=== PATIENT | male | born 1945 | race Caucasian/White ===

== ENCOUNTER 2021-09-30 10:15 | Outpatient (RCR) | payer MEDICARE, OTHER, SELFPAY ==
[2021-09-02 09:10] VITALS: BP 166/72; PULSE 59; RESP 16; TEMP 36.3; BMI 35.6
--- NOTE | 2021-09-02 12:07 | HP.PCM_ITS ---
History of Present Illness Date of Service: 09/02/21 Chief Complaint: Left lower extremity wound History of Wound: This is a 76-year-old male who presents to the wound care center for a left lower extremity wound that has not healed complicated by chronic venous insufficiency. Patient is accompanied by his and states that he wears compression stockings every other day and not daily. He denies being a diabetic and states that his recent hemoglobin A1c was 5.8%. He states that he bumped his left lower leg and noticed a small raised area that was open and weeping. He states that this scabbed over which is easily removed during washing but rescabs over. He denies any nausea, vomiting, fever, chills, shortness of breath, or other constitutional symptoms. [facility] Home Medications calcium carbonate 3 PO DAILY 09/02/21 [History Last Taken Unknown] fluticasone propionate 1 spray INTRANASAL DAILY 09/02/21 [History Last Taken Unknown] hydrochlorothiazide 12.5 mg PO DAILY PRN PRN 09/02/21 [History Last Taken Unknown] ibuprofen 300 mg PO PRN PRN 09/02/21 [History Last Taken Unknown] levothyroxine 75 mcg PO DAILY 09/02/21 [History Last Taken Unknown] losartan 100 mg PO DAILY 09/02/21 [History Last Taken Unknown] metoprolol succinate 100 mg PO DAILY 09/02/21 [History Last Taken Unknown] multivitamin 1 tab PO DAILY 09/02/21 [History Last Taken Unknown] tamsulosin 0.4 mg PO QHS 09/02/21 [History Last Taken Unknown] Allergy/AdvReac Type Severity Reaction Status Date / Time latex Allergy Rash Verified 04/18/14 12:54 Penicillins Allergy Hives Verified 04/18/14 12:54 Social History Smoking Status: Unknown if ever smoked ROS Constitutional Constitutional: Denies chills, fatigue, fever(s) or weakness Eyes Eyes: Denies blurry vision, change in vision or double vision ENT HEENT: Denies dysphagia, nasal congestion, nasal discharge or sore throat Cardiovascular Cardiovascular: Denies chest pain, dyspnea, fatigue or palpitations Respiratory/Chest Respiratory/Chest: Denies cough, shortness of breath at rest or wheezing Gastrointestinal Gastrointestinal: Denies abdominal pain, constipation, diarrhea, nausea or vomiting Genitourinary Genitourinary: Denies dysuria, urinary frequency, urinary hesitancy or urinary incontinence Musculoskeletal Musculoskeletal: Denies joint pain, joint stiffness, numbness or tingling Integumentary Integumentary: Denies change in hair, jaundice or rash Neurologic Neurologic: Denies dizziness, numbness, seizures or tingling Psychiatric Psychiatric: Denies anxiety or depression Endocrine Endocrinology: Denies cold intolerance, heat intolerance, polydipsia or polyuria Hematologic/Lymphatic Hematologic/Lymphatic: Denies easy bleeding or easy bruising Vital Signs Vital Signs Vital Signs: 09/02/21 09:10 Temperature 97.4 F L Temperature Source Temporal Pulse Rate 59 L Respiratory Rate 16 Blood Pressure 166/72 H Blood Pressure Mean 103 Blood Pressure Source Monitor Blood Pressure Position Semi-Fowlers Blood Pressure Location Right Arm Weight Weight: 112.491 kg Body Mass Index (BMI) 35.6 Physical Exam Const alert, oriented x3 and no apparent distress General Appearance: cooperative and comfortable HEENT normocephalic Eyes General Eye: normal appearance of both eyes Neck General: normal visual inspection Chest inspection of chest normal Resp normal respiratory effort Cardio regular rate and regular rhythm Extremity Peripheral Pulses: Yes posterior tibial pulses present bilateral and dorsalis pedis pulses present bilateral Skin Skin Narrative: Left leg medial lower extremity wound with dried yellow crusted covering secondary to chronic venous insufficiency. Surrounding skin is reddish-purple with hemosiderin stained deposition about the left lower extremity extending distally to the ankle. Right lower extremity demonstrates localized area of rubor without breakdown of skin or margins consistent with chronic venous insufficiency. No localized signs of infection to the left wound site. General Skin Exam: venous stasis and dermatitis Wound Narrative: Left lower extremity ulceration with dried yellow crusted covering secondary to chronic venous insufficiency with no localized signs of infection. Surrounding skin is reddish-purple with hemosiderin stained deposition about the left lower extremity extending distally to the ankle. Neuro oriented x3 and moves all extremities Motor Exam: strength 5/5 throughout Debridement Note Debridement Note Wound debrided: Left lower extremity medial wound Laterality: Left Wound Grade/Stage: Flores stage I Type of Debridement: Excisional debridement Anesthesia Used: 5% Lidocaine Gel Depth: in the subcutaneous layer Percentage of wound debrided: 100 Instrument Used: #15 blade Tissue Removed: Fibrous, devitalized subcutaneous, biofilm, slough Severity: Fat Layer Exposed Amount of bleeding with debridement: Mild Bleeding Controlled with: Pressure Patient tolerated procedure: Patient tolerated procedure well Post-Debridement Measurements and Additional Note: Post-Debridement Measurements /Treatment WC - Nurse 1 - General Ulcer Assessment Start: 09/02/21 09:03 Freq: Status: Active Protocol: ANTHONY Activity Type Activity Date Activity User E-Sign Co-Sign Detail Recorded Client Recorded Date Recorded By Document 09/02/21 09:10 CHER [id number] 09/02/21 09:54 CHER 09/02/21 09:10 WC - Today's Visit Information Type of service Initial Visit Arrival Mode Ambulatory Accompanied by Patient Identification Verified (Name & Yes ) Patient Requires Transmission-Based No Precautions Height and Weight Height 5 ft 10 in Weight 112.491 kg Weight in Pounds 248.0 lbs Weight Measurement Method Standing Scale Body Mass Index (BMI) 35.6 BMI Classification Obese BSA - Isael 2.29 Vital Signs Temperature (97.8 F-99.1 F) 97.4 F L Temperature Source Temporal Pulse Rate (60-100) 59 L Pulse Location Monitor Respiratory Rate (12-18) 16 Respiratory rate source Observation Blood Pressure (90/60-120/80) 166/72 H Blood Pressure Mean 103 Source Monitor Position Semi-Fowlers Blood Pressure Location Right Arm History Since Last Visit- (Skip if this is Patient's initial visit) Have you changed medications since your No last visit? Left Footwear Regular Shoe Right Footwear Regular Shoe Pain Scale: 0-10 Numeric Is Patient Pain Free? Yes Communication Assessment Preferred language Wolof Patient Coordinator Front Desk Required No Able to Read Yes: Partial vision impairment from Macular degeneration with surgery. Able to Write Yes Caregiver Communication Skills No Impairment Impairment Right Hearing Abillity Normal Left Hearing Abillity Normal Teaching Assessment Preferences Verbal,Written, Audio/Visual, Demonstration Barriers to Learning Vision Impairment Readiness To Learn Excellent Willingness to Engage in Self Management High Activies Readiness to Engage in Self Management High Activities Anxiety Level Calm Cooperation Cooperative Perception Coherent Interest in Health Problem Asks Questions Education Importance Acknowledges Need Does Patient Smoke tobacco or other No substances Is Patient Diabetic Yes Functional Assessment Recent Decline in Ability to Perform Denies Any Declines Culture/Uatsdin/[employer] Cultural/Uatsdin Needs that may affect No Treatment Plan Would you allow our hospital informatica mdm developer to No meet you for the purpose of spiritual/ emotional support? [employer] to contact place of sikh No HOMERO - Nurse 1 - General Ulcer Measurement Start: 09/02/21 09:03 Freq: Status: Active Protocol: Activity Type Activity Date Activity User E-Sign Co-Sign Detail Recorded Client Recorded Date Recorded By Document 09/02/21 09:10 CHER [id number] 09/02/21 09:54 CHER 09/02/21 09:10 Wound Center Nurse 1 Lower Limb Edema Present Yes Right Calf (cm) 40.5 Right Ankle (cm) 24.6 Left Calf (cm) 39.8 Left Ankle (cm) 27.6 Assessment/Plan Assessment/Plan (1) Non-pressure chronic ulcer of left calf with fat layer exposed: CODE(S): L97.222 - Non-pressure chronic ulcer of left calf with fat layer exposed (2) Venous insufficiency (chronic) (peripheral): CODE(S): I87.2 - Venous insufficiency (chronic) (peripheral) (3) Bilateral edema of lower extremity: CODE(S): R60.0 - Localized edema PLAN: Is a 76-year-old male who presents to the wound care center for a medial left lower extremity wound secondary to chronic venous insufficiency. He states that he bumped his left leg and had developed a small raised area that weeps some fluid and crusted over with a yellow scab. He states the scab comes off when washing but returns again. He states that he only wears compression stockings every other day and cites difficulty getting them on. He has previously tried zipper stockings and also cites difficulty with these. He is accompanied by his who also states she has arthritis in her hands and cannot help her get the stockings on. I reviewed his recent labs from 08/18/2021 in which he had a hemoglobin A1c of 5.8%. He denies being diabetic. He has palpable pedal pulses DP and PT bilaterally. Left lower extremity medial ulceration site was sharply debrided with a #15 blade removing yellow hyperkeratotic crusting, fibrous, devitalized subcutaneous, biofilm, slough. Hydrogel and a dry sterile dressing applied to the site to be changed daily. I discussed with the patient and his that he needs to be compliant and continued use of compression stockings daily as this is essential for healing. Given his difficulty in being able to get the compression stockings on I am prescribing CircAid compression wraps with Velcro tabs to be worn daily to both lower extremities. Right lower extremity site of rubisma demonstrates no open wounds and will be monitored for any changes. I disc ussed with his chronic venous insufficiency this will be duron to reducing edema and allowing the wound sites to heal. Patient and voiced understanding of this. I discussed proper diet control and exercise to prevent onset of diabetes mellitus type 2, patient states that he will try his best. I reviewed and discussed his case today. Debridement was performed today as noted in the clinical panel to all of the ulcer sites. The following work up and care recommendations were made: Dressing: Hydrogel dry sterile dressing Wash: Soap and water Tissue growth optimization: Hydrogel Offload: CircAid compression dressing Vascular: Palpable pedal pulses DP and PT Edema: Patient to wear CircAid compression, elevate lower extremities at times of rest, dorsiflex and plantarflex the foot to aid in venous return by the calf muscle Infection: No localized signs of infection Pain: Patient may take [id number] Tylenol for discomfort Host factors: Chronic venous insufficiency and edema I answered all the patient's questions. To return to the wound healing center in 1 week or call sooner if the patient has any questions or concerns. The problems addressed require a low medical decision making level which includes two or more minor problems, a stable chronic illness, or an acute uncomplicated illness or injury. The medical decision making level is low. There is noted low risk of morbidity after considering this treatment plan and diagnostic data. Note: [employer] speech recognition application assistant software was used to create portions of this document. Sound-alike and misspelled words, as well as other application assistant errors may be contained in the documentation.
[2021-09-09 09:19] VITALS: BP 179/60; PULSE 60; RESP 18; TEMP 36.2; BMI 35.6
--- NOTE | 2021-09-09 13:08 | PN.PCM_ITS ---
History of Present Illness Date of Service: 09/09/21 Chief Complaint: Left lower extremity wound History of Wound: This is a 76-year-old male who presents to the wound care center for a left lower extremity wound that has not healed complicated by chronic venous insufficiency. Patient is accompanied by his and states that he wears compression stockings every other day and not daily. He denies being a diabetic and states that his recent hemoglobin A1c was 5.8%. He states that he bumped his left lower leg and noticed a small raised area that was open and weeping. He states that this scabbed over which is easily removed during washing but rescabs over. He denies any nausea, vomiting, fever, chills, shortness of breath, or other constitutional symptoms. Subjective Subjective This is a 76-year-old male who presents to the wound care center for a left lower extremity wound that is not healed complicated by chronic venous insufficiency. He denies any nausea, vomiting, fever, chills, shortness of breath, or other constitutional symptoms. He states they have been continuing to change the dressings daily to his wound site. He is accompanied by his today and has no other complaints. Objective Data Objective Data Vital Signs: Vital Signs Temp Pulse Resp BP 97.1 F L 60 18 179/60 H 09/09/21 09:19 09/09/21 09:19 09/09/21 09:19 09/09/21 09:19 Weight: 112.491 kg Body Mass Index (BMI) 35.6 Physical Exam Const alert, oriented x3 and no apparent distress General Appearance: cooperative and comfortable HEENT normocephalic Eyes General Eye: normal appearance of both eyes Neck General: normal visual inspection Chest inspection of chest normal Resp normal respiratory effort Cardio regular rate and regular rhythm Skin Skin Narrative: Left leg medial lower extremity wound with dried yellow crusted covering secondary to chronic venous insufficiency. Surrounding skin is reddish-purple with hemosiderin stained deposition about the left lower extremity extending distally to the ankle. Right lower extremity demonstrates localized area of rubor without breakdown of skin or margins consistent with chronic venous insufficiency. No localized signs of infection to the left wound site. General Skin Exam: venous stasis and dermatitis Wound Narrative: Left lower extremity ulceration with dried yellow crusted covering secondary to chronic venous insufficiency with no localized signs of infection. Surrounding skin is reddish-purple with hemosiderin stained deposition about the left lower extremity extending distally to the ankle. Neuro oriented x3 and moves all extremities Motor Exam: strength 5/5 throughout Debridement Note Debridement Note Wound debrided: Left lower extremity wound Laterality: Left Type of Debridement: Excisional debridement Anesthesia Used: 5% Lidocaine Gel and Cetacaine Depth: in the subcutaneous layer Percentage of wound debrided: 100 Instrument Used: 3mm curette Tissue Removed: Fibrous, devitalized subcutaneous, biofilm, slough Severity: Fat Layer Exposed Amount of bleeding with debridement: Mild Bleeding Controlled with: Pressure Patient tolerated procedure: Patient tolerated procedure well Post-Debridement Measurements and Additional Note: Post-Debridement Measurements/Treatment - Nurse 1 - General Ulcer Assessment Start: 09/02/21 09:03 Freq: Status: Active Protocol: ANTHONY Activity Type Activity Date Activity User E-Sign Co-Sign Detail Recorded Client Recorded Date Recorded By Document 09/02/21 09:10 CHER [id number] 09/02/21 09:54 Document 09/09/21 09:19 [id number] 09/09/21 09:29 09/02/21 09/09/21 09:10 09:19 - Today's Visit Information Type of service Initial Visit Follow-up Visit (Physician/VITAMIN MANAGER ) Arrival Mode Ambulatory Ambulatory Accompanied by Patient Identification Verified (Name & Yes Yes ) Patient Requires Transmission-Based No No Precautions Height and Weight Height 5 ft 10 in Weight 112.491 kg Weight in Pounds 248.0 lbs Weight Measurement Method Standing Scale Body Mass Index (BMI) 35.6 35.6 BMI Classification Obese Obese BSA - Isael 2.29 Vital Signs Temperature (97.8 F-99.1 F) 97.4 F L 97.1 F L Temperature Source Temporal Temporal Pulse Rate (60-100) 59 L 60 Pulse Location Monitor Monitor Respiratory Rate (12-18) 16 18 Respiratory rate source Observation Observation Blood Pressure (90/60-120/80) 166/72 H 179/60 H Blood Pressure Mean (mm Hg) 103 99 Source Monitor Monitor Position Semi-Fowlers Semi-Fowlers Blood Pressure Location Right Arm Right Arm History Since Last Visit- (Skip if this is Patient's initial visit) Have you changed medications since your No No last visit? Any new allergies or adverse reactions No Had a fall/change in ADL's that may No increase risk of falls Signs or symptoms of abuse and/or No neglect since last visit Have you been in the hospital since your No last visit? Has dressing in place as prescribed Yes Has compression in place as prescribed Yes Has offloadiing in place as prescribed N/A Experienced any changes in pain level or No management Left Footwear Regular Shoe Regular Shoe Right Footwear Regular Shoe Regular Shoe Pain Scale: 0-10 Numeric Is Patient Pain Free? Yes Yes Communication Assessment Preferred language [place] Retirement Assistant Required No Able to Read Yes: Partial vision impairment from Macular degeneration with surgery. Able to Write Yes Caregiver Communication Skills No Impairment Impairment Right Hearing Abillity Normal Left Hearing Abillity Normal Teaching Assessment Preferences Verbal,Written, Audio/Visual, Demonstration Barriers to Learning Vision Impairment Readiness To Learn Excellent Willingness to Engage in Self Management High Activies Readiness to Engage in Self Management High Activities Anxiety Level Calm Cooperation Cooperative Perception Coherent Interest in Health Problem Asks Questions Education Importance Acknowledges Need Does Patient Smoke tobacco or other No substances Is Patient Diabetic Yes Functional Assessment Recent Decline in Ability to Perform Denies Any Declines Culture/Congregational/Career And Guidance Counselor Cultural/Congregational Needs that may affect No Treatment Plan Would you allow our hospital fuel cell technician to No meet you for the purpose of spiritual/ emotional support? Career And Guidance Counselor to contact place of pentecostal No WC - Nurse 1 - General Ulcer Measurement Start: 09/02/21 09:03 Freq: Status: Active Protocol: Activity Type Activity Date Activity User E-Sign Co-Sign Detail Recorded Client Recorded Date Recorded By Document 09/02/21 09:10 CHER [id number] 09/02/21 09:54 Document 09/09/21 09:19 [id number] 09/09/21 09:29 09/02/21 09/09/21 09:10 09:19 #1 Left Medial LE -Combined with other wound No -Current Size (cm) - Length 1.3 -Current Size (cm) - Width 0.6 -Current Size (cm) - Depth 0.2 -Total Square Cm 0.78 -Photo Taken No -Epithelialization Small 1-33% -Tunneling No -Undermining/Tunneling No -Circular Undermining No -Exudate Amt Small -Wound Margin Flat & Intact -Granulation Amt None Present (0 %) -Slough/Fibrin Yes -Necrosis Amt Large (67-100%) -Necrotic Tissue Type Adherent Slough -Structure Exposed N/A -Texture (Loretta-wound Skin Appearance) Assessed, Localized Edema -Moisture (Loretta-wound Skin Appearance) Assessed,Dry/ Scaly -Color (Loretta-wound Skin Appearance) Assessed, Hemosiderin Staining -Temperature (Loretta-wound Skin No Abnormality Appearance) (Pt Warm) -Tenderness on Palpation (Loretta-wound No Skin Appearance) -Ulcer Cleansing Rinsed/ Irrigated with Saline -Foul Odor after Cleansing No -Anesthetic Used 5% Lidocaine Gel Wound Center Nurse 1 Lower Limb Edema Present Yes Yes Right Calf (cm) 40.5 39.0 Right Ankle (cm) 24.6 23.5 Left Calf (cm) 39.8 39.4 Left Ankle (cm) 27.6 23.7 WC - Nurse 2 - General Ulcer CM Notes Start: 09/02/21 09:03 Freq: Status: Active Protocol: Activity Type Activity Date Activity User E-Sign Co-Sign Detail Recorded Client Recorded Date Recorded By Document 09/02/21 12:40 PL [id number] 09/02/21 12:45 PL Document 09/09/21 12:58 PL [id number] 09/09/21 12:59 PL 09/02/21 09/09/21 12:40 12:58 Wound Center Nurse 2 #1 Left Medial LE -Time 09:49 -Correct Patient Yes -Correct Side, Site, Position Yes -Correct Procedure Yes -Procedure Performed Yes -Type of Procedure Debridement -Clinical Debridement Subcutaneous -Tissue Removed Subcutaneous -Post Debridement (cm) - Length 1.3 -Post Debridement (cm) - Width 0.6 -Post Debridement (cm) - Depth 0.2 -Total Square (Post) (cm) 0.78 -Area of Debridement (cm) - Length 1.3 -Area of Debridement (cm) - Width 0.6 -Total Square (Area) (cm) 0.78 -Tunneling No -Undermining/Tunneling No -Circular Undermining No -Wound/Ulcer Outcome Not Healed -Ulcer Cleansing Rinsed/ Irrigated with Saline -Foul Odor after Cleansing No -Bioengineered Tissue No -Bleeding Controlled with Pressure -Treatment Response Procedure Tolerated Well -Debridement - Subq, 1st 20sq cm Yes #1 Left Medial LE -Time 09:30 -Correct Patient Yes -Correct Side, Site, Position Yes -Correct Procedure Yes -Procedure Performed Yes -Type of Procedure Debridement -Clinical Debridement Subcutaneous -Tissue Removed Subcutaneous -Post Debridement (cm) - Length 1.0 -Post Debridement (cm) - Width 1.0 -Post Debridement (cm) - Depth 0.1 -Total Square (Post) (cm) 1.00 -Area of Debridement (cm) - Length 1.0 -Area of Debridement (cm) - Width 1.0 -Total Square (Area) (cm) 1.00 -Tunneling No -Undermining/Tunneling No -Circular Undermining No -Wound/Ulcer Outcome Not Healed -Ulcer Cleansing Rinsed/ Irrigated with Saline -Foul Odor after Cleansing No -Bioengineered Tissue No -Bleeding Controlled with Pressure -Treatment Response Procedure Tolerated Well -Debridement - Subq, 1st 20sq cm Yes Pain Scale: 0-10 Numeric Is Patient Pain Free? Yes Yes - Nurse 3 - General Ulcer D/C NN Start: 09/02/21 09:03 Freq: Status: Active Protocol: Activity Type Activity Date Activity User E-Sign Co-Sign Detail Recorded Client Recorded Date Recorded By Document 09/02/21 12:40 PL [id number] 09/02/21 12:45 PL 09/02/21 12:40 Is Patient Pain Free? Yes Wound Care Nurse 3 #1 Left Medial LE -Foul Odor after Cleansing No -Primary Dressing Applied C Hydrogel ($) -Primary Dressing Covered/Secured with Dry Gauze & Roll Gauze, Secured with Tape Left -Tubular Bandage Double Layer -Size of Tubigrip Used Size E -Size E ($) 4 Right -Tubular Bandage Double Layer -Size of Tubigrip Used Size E -Size E ($) 4 WC - Visit Discharge Discharge Condition Stable Transportation Private Auto Assessment/Plan Assessment/Plan (1) Non-pressure chronic ulcer of left calf with fat layer exposed: CODE(S): L97.222 - Non-pressure chronic ulcer of left calf with fat layer exposed (2) Venous insufficiency (chronic) (peripheral): CODE(S): I87.2 - Venous insufficiency (chronic) (peripheral) (3) Bilateral edema of lower extremity: CODE(S): R60.0 - Localized edema PLAN: Is a 76-year-old male who presents to the wound care center for a medial left lower extremity wound secondary to chronic venous insufficiency. He states that he bumped his left leg and had developed a small raised area that weeps some fluid and crusted over with a yellow scab. He states the scab comes off when washing but returns again. He states that he only wears compression stockings every other day and cites difficulty getting them on. He has previously tried zipper stockings and also cites difficulty with these. He is accompanied by his who also states she has arthritis in her hands and cannot help her get the stockings on. Recent labs from 08/18/2021 in which he had a hemoglobin A1c of 5.8%. He denies being diabetic. He has palpable pedal pulses DP and PT bilaterally. Left lower extremity medial ulceration site shows good progression with a mixed fibrotic granular base and no localized signs of infection. Left lower extremity medial ulceration site was sharply debrided with a 3 mm curette removing fib evelio, devitalized subcutaneous, biofilm, slough. Hydrogel and a dry sterile dressing applied to the site to be changed daily. I discussed with the patient and his that he needs to be compliant and continued use of compression stockings daily as this is essential for healing. Given his difficulty in being able to get the compression stockings on I am prescribing CircAid compression wraps with Velcro tabs to be worn daily to both lower extremities. Right lower extremity site of jeny demonstrates no open wounds and will be monitored for any changes. I discussed with his chronic venous insufficiency this will be duron to reducing edema and allowing the wound sites to heal. Patient and voiced understanding of this. I discussed proper diet control and exercise to prevent onset of diabetes mellitus type 2, patient states that he will try his best. I discussed continued exercise as this will also aid in venous return, aid in weight loss, and help prevent onset of type 2 diabetes mellitus. I reviewed and discussed his case today. Debridement was performed today as noted in the clinical panel to all of the ulcer sites. The following work up and care recommendations were made: Dressing: Hydrogel dry sterile dressing Wash: Soap and water Tissue growth optimization: Hydrogel Offload: CircAid compression dressing Vascular: Palpable pedal pulses DP and PT Edema: Patient to wear CircAid compression, elevate lower extremities at times of rest, dorsiflex and plantarflex the foot to aid in venous return by the calf muscle Infection: No localized signs of infection Pain: Patient may take [id number] Tylenol for discomfort Host factors: Chronic venous insufficiency and edema I answered all the patient's questions. To return to the wound healing center in 1 week or call sooner if the patient has any questions or concerns. Note: [employer] speech recognition lighting engineer software was used to create portions of this document. Sound-alike and misspelled words, as well as other lighting engineer errors may be contained in the documentation.
[2021-09-16 09:46] VITALS: BP 124/66; PULSE 69; TEMP 36.1; BMI 35.6
--- NOTE | 2021-09-16 09:55 | PN.PCM_ITS ---
History of Present Illness Date of Service: 09/16/21 Chief Complaint: Left lower extremity wound History of Wound: This is a 76-year-old male who presents to the wound care center for a left lower extremity wound that has not healed complicated by chronic venous insufficiency. Patient is accompanied by his and states that he wears compression stockings every other day and not daily. He denies being a diabetic and states that his recent hemoglobin A1c was 5.8%. He states that he bumped his left lower leg and noticed a small raised area that was open and weeping. He states that this scabbed over which is easily removed during washing but rescabs over. He denies any nausea, vomiting, fever, chills, shortness of breath, or other constitutional symptoms. Subjective Subjective This is a 76-year-old male who presents to the wound care center for a left lower extremity wound that is not healed complicated by chronic venous insufficiency. He denies any nausea, vomiting, fever, chills, shortness of breath, or other constitutional symptoms. He states they have been continuing to change the dressings daily to his wound site. He is accompanied by his today and has no other complaints. Objective Data Objective Data Vital Signs: Vital Signs Temp Pulse Resp BP 97.1 F L 60 18 179/60 H 09/09/21 09:19 09/09/21 09:19 09/09/21 09:19 09/09/21 09:19 Weight: 112.491 kg Body Mass Index (BMI) 35.6 Physical Exam Const alert, oriented x3 and no apparent distress General Appearance: cooperative and comfortable HEENT normocephalic Eyes General Eye: normal appearance of both eyes Neck General: normal visual inspection Chest inspection of chest normal Resp normal respiratory effort Cardio regular rate and regular rhythm Skin Skin Narrative: Left leg medial lower extremity wound with dried yellow crusted covering secondary to chronic venous insufficiency. Surrounding skin is reddish-purple with hemosiderin stained deposition about the left lower extremity extending distally to the ankle. Right lower extremity demonstrates localized area of rubor without breakdown of skin or margins consistent with chronic venous insufficiency. No localized signs of infection to the left wound site. General Skin Exam: venous stasis and dermatitis Wound Narrative: Left lower extremity ulceration with dried yellow crusted covering secondary to chronic venous insufficiency with no localized signs of infection. Surrounding skin is reddish-purple with hemosiderin stained deposition about the left lower extremity extending distally to the ankle. Neuro oriented x3 and moves all extremities Motor Exam: strength 5/5 throughout Debridement Note Debridement Note Wound debrided: Left medial leg Laterality: Left Wound Grade/Stage: Flores stage I Type of Debridement: Excisional debridement Anesthesia Used: 5% Lidocaine Gel Depth: in the subcutaneous layer Percentage of wound debrided: 100 Instrument Used: 3mm curette Tissue Removed: Fibrous, devitalized subcutaneous, biofilm, slough Severity: Fat Layer Exposed Amount of bleeding with debridement: Mild Bleeding Controlled with: Pressure Patient tolerated procedure: Patient tolerated procedure well Post-Debridement Measurements and Additional Note: Post-Debridement Measurements/Treatment - Nurse 1 - General Ulcer Assessment Start: 09/02/21 09:03 Freq: Status: Active Protocol: ANTHONY Activity Type Activity Date Activity User E-Sign Co-Sign Detail Recorded Client Recorded Date Recorded By Document 09/02/21 09:10 [id number] 09/02/21 09:54 Document 09/09/21 09:19 [id number] 09/09/21 09:29 09/02/21 09/09/21 09:10 09:19 - Today's Visit Information Type of service Initial Visit Follow-up Visit (Physician/PRODUCT TECHNICIAN ) Arrival Mode Ambulatory Ambulatory Accompanied by Patient Identification Verified (Name & Yes Yes ) Patient Requires Transmission-Based No No Precautions Height and Weight Height 5 ft 10 in Weight 112.491 kg Weight in Pounds 248.0 lbs Weight Measurement Method Standing Scale Body Mass Index (BMI) 35.6 35.6 BMI Classification Obese Obese BSA - Isael 2.29 Vital Signs Temperature (97.8 F-99.1 F) 97.4 F L 97.1 F L Temperature Source Temporal Temporal Pulse Rate (60-100) 59 L 60 Pulse Location Monitor Monitor Respiratory Rate (12-18) 16 18 Respiratory rate source Observation Observation Blood Pressure (90/60-120/80) 166/72 H 179/60 H Blood Pressure Mean (mm Hg) 103 99 Source Monitor Monitor Position Semi-Fowlers Semi-Fowlers Blood Pressure Location Right Arm Right Arm History Since Last Visit- (Skip if this is Patient's initial visit) Have you changed medications since your No No last visit? Any new allergies or adverse reactions No Had a fall/change in ADL's that may No increase risk of falls Signs or symptoms of abuse and/or No neglect since last visit Have you been in the hospital since your No last visit? Has dressing in place as prescribed Yes Has compression in place as prescribed Yes Has offloadiing in place as prescribed N/A Experienced any changes in pain level or No management Left Footwear Regular Shoe Regular Shoe Right Footwear Regular Shoe Regular Shoe Pain Scale: 0-10 Numeric Is Patient Pain Free? Yes Yes Communication Assessment Preferred language Welsh Ultrasonic Hand Solderer Required No Able to Read Yes: Partial vision impairment from Macular degeneration with surgery. Able to Write Yes Caregiver Communication Skills No Impairment Impairment Right Hearing Abillity Normal Left Hearing Abillity Normal Teaching Assessment Preferences Verbal,Written, Audio/Visual, Demonstration Barriers to Learning Vision Impairment Readiness To Learn Excellent Willingness to Engage in Self Management High Activies Readiness to Engage in Self Management High Activities Anxiety Level Calm Cooperation Cooperative Perception Coherent Interest in Health Problem Asks Questions Education Importance Acknowledges Need Does Patient Smoke tobacco or other No substances Is Patient Diabetic Yes Functional Assessment Recent Decline in Ability to Perform Denies Any Declines Culture/Jewish/Radiographer Angiogram Cultural/Jewish Needs that may affect No Treatment Plan Would you allow our hospital middle school coach to No meet you for the purpose of spiritual/ emotional support? Radiographer Angiogram to contact place of denominational No WC - Nurse 1 - General Ulcer Measurement Start: 09/02/21 09:03 Freq: Status: Active Protocol: Activity Type Activity Date Activity User E-Sign Co-Sign Detail Recorded Client Recorded Date Recorded By Document 09/02/21 09:10 [id number] 09/02/21 09:54 Document 09/09/21 09:19 [id number] 09/09/21 09:29 09/02/21 09/09/21 09:10 09:19 #1 Left Medial LE -Combined with other wound No -Current Size (cm) - Length 1.3 -Current Size (cm) - Width 0.6 -Current Size (cm) - Depth 0.2 -Total Square Cm 0.78 -Photo Taken No -Epithelialization Small 1-33% -Tunneling No -Undermining/Tunneling No -Circular Undermining No -Exudate Amt Small -Wound Margin Flat & Intact -Granulation Amt None Present (0 %) -Slough/Fibrin Yes -Necrosis Amt Large (67-100%) -Necrotic Tissue Type Adherent Slough -Structure Exposed N/A -Texture (Loretta-wound Skin Appearance) Assessed, Localized Edema -Moisture (Loretta-wound Skin Appearance) Assessed,Dry/ Scaly -Color (Loretta-wound Skin Appearance) Assessed, Hemosiderin Staining -Temperature (Loretta-wound Skin No Abnormality Appearance) (Pt Warm) -Tenderness on Palpation (Loretta-wound No Skin Appearance) -Ulcer Cleansing Rinsed/ Irrigated with Saline -Foul Odor after Cleansing No -Anesthetic Used 5% Lidocaine Gel Wound Center Nurse 1 Lower Limb Edema Present Yes Yes Right Calf (cm) 40.5 39.0 Right Ankle (cm) 24.6 23.5 Left Calf (cm) 39.8 39.4 Left Ankle (cm) 27.6 23.7 WC - Nurse 2 - General Ulcer CM Notes Start: 09/02/21 09:03 Freq: Status: Active Protocol: Activity Type Activity Date Activity User E-Sign Co-Sign Detail Recorded Client Recorded Date Recorded By Document 09/02/21 12:40 PL [id number] 09/02/21 12:45 PL Document 09/09/21 12:58 PL [id number] 09/09/21 12:59 PL 09/02/21 09/09/21 12:40 12:58 Wound Center Nurse 2 #1 Left Medial LE -Time 09:49 -Correct Patient Yes -Correct Side, Site, Position Yes -Correct Procedure Yes -Procedure Performed Yes -Type of Procedure Debridement -Clinical Debridement Subcutaneous -Tissue Removed Subcutaneous -Post Debridement (cm) - Length 1.3 -Post Debridement (cm) - Width 0.6 -Post Debridement (cm) - Depth 0.2 -Total Square (Post) (cm) 0.78 -Area of Debridement (cm) - Length 1.3 -Area of Debridement (cm) - Width 0.6 -Total Square (Area) (cm) 0.78 -Tunneling No -Undermining/Tunneling No -Circular Undermining No -Wound/Ulcer Outcome Not Healed -Ulcer Cleansing Rinsed/ Irrigated with Saline -Foul Odor after Cleansing No -Bioengineered Tissue No -Bleeding Controlled with Pressure -Treatment Response Procedure Tolerated Well -Debridement - Subq, 1st 20sq cm Yes #1 Left Medial LE -Time 09:30 -Correct Patient Yes -Correct Side, Site, Position Yes -Correct Procedure Yes -Procedure Performed Yes -Type of Procedure Debridement -Clinical Debridement Subcutaneous -Tissue Removed Subcutaneous -Post Debridement (cm) - Length 1.0 -Post Debridement (cm) - Width 1.0 -Post Debridement (cm) - Depth 0.1 -Total Square (Post) (cm) 1.00 -Area of Debridement (cm) - Length 1.0 -Area of Debridement (cm) - Width 1.0 -Total Square (Area) (cm) 1.00 -Tunneling No -Undermining/Tunneling No -Circular Undermining No -Wound/Ulcer Outcome Not Healed -Ulcer Cleansing Rinsed/ Irrigated with Saline -Foul Odor after Cleansing No -Bioengineered Tissue No -Bleeding Controlled with Pressure -Treatment Response Procedure Tolerated Well -Debridement - Subq, 1st 20sq cm Yes Pain Scale: 0-10 Numeric Is Patient Pain Free? Yes Yes - Nurse 3 - General Ulcer D/C NN Start: 09/02/21 09:03 Freq: Status: Active Protocol: Activity Type Activity Date Activity User E-Sign Co-Sign Detail Recorded Client Recorded Date Recorded By Document 09/02/21 12:40 PL [id number] 09/02/21 12:45 PL 09/02/21 12:40 Is Patient Pain Free? Yes Wound Care Nurse 3 #1 Left Medial LE -Foul Odor after Cleansing No -Primary Dressing Applied C Hydrogel ($) -Primary Dressing Covered/Secured with Dry Gauze & Roll Gauze, Secured with Tape Left -Tubular Bandage Double Layer -Size of Tubigrip Used Size E -Size E ($) 4 Right -Tubular Bandage Double Layer -Size of Tubigrip Used Size E -Size E ($) 4 WC - Visit Discharge Discharge Condition Stable Transportation Private Auto Assessment/Plan Assessment/Plan (1) Non-pressure chronic ulcer of left calf with fat layer exposed: CODE(S): L97.222 - Non-pressure chronic ulcer of left calf with fat layer exposed (2) Venous insufficiency (chronic) (peripheral): CODE(S): I87.2 - Venous insufficiency (chronic) (peripheral) (3) Bilateral edema of lower extremity: CODE(S): R60.0 - Localized edema PLAN: Is a 76-year-old male who presents to the wound care center for a medial left lower extremity wound secondary to chronic venous insufficiency. He states that he bumped his left leg and had developed a small raised area that weeps some fluid and crusted over with a yellow scab. He states the scab comes off when washing but returns again. He states that he only wears compression stockings every other day and cites difficulty getting them on. He has previously tried zipper stockings and also cites difficulty with these. He is accompanied by his who also states she has arthritis in her hands and c annot help her get the stockings on. Recent labs from 08/18/2021 in which he had a hemoglobin A1c of 5.8%. He denies being diabetic. He has palpable pedal pulses DP and PT bilaterally. Left lower extremity medial ulceration site demonstrates progression with a mixed fibrotic granular base and no localized signs of infection. Left lower extremity medial ulceration site was sharply debrided with a 3 mm curette removing fibrous, devitalized subcutaneous, biofilm, slough. Brinda, hydrogel and a dry sterile dressing applied to the site to be changed daily. I discussed with the patient and his that he needs to be compliant and continued use of compression stockings daily as this is essential for healing. Given his difficulty in being able to get the compression stockings he is to begin CircAid compression wraps with Velcro tabs to be worn daily to both lower extremities. Right lower extremity site of jeny demonstrates no open wounds and will be monitored for any changes. I discussed with his chronic venous insufficiency a compression garment will be duron to reducing edema and allowing the wound sites to heal. Patient and voiced understanding of this. I discussed proper diet control and exercise to prevent onset of diabetes mellitus type 2, patient states that he will try his best. I discussed continued exercise as this will also aid in venous return, aid in weight loss, and help prevent onset of type 2 diabetes mellitus. I reviewed and discussed his case today. Debridement was performed today as noted in the clinical panel to all of the ulcer sites. The following work up and care recommendations were made: Dressing: Brinda, hydrogel and dry sterile dressing Wash: Soap and water Tissue growth optimization: Brinda and hydrogel Offload: CircAid compression dressing Vascular: Palpable pedal pulses DP and PT Edema: Patient to wear CircAid compression, elevate lower extremities at times of rest, dorsiflex and plantarflex the foot to aid in venous return by the calf muscle Infection: No localized signs of infection Pain: Patient may take [id number] Tylenol for discomfort Host factors: Chronic venous insufficiency and edema I answered all the patient's questions. To return to the wound healing center in 1 week or call sooner if the patient has any questions or concerns. Note: [employer] speech recognition etl informatica developer software was used to create portions of this document. Sound-alike and misspelled words, as well as other etl informatica developer errors may be contained in the documentation.
[2021-09-23 09:30] VITALS: TEMP 36.1; BMI 35.6
--- NOTE | 2021-09-23 10:46 | PN.PCM_ITS ---
History of Present Illness Date of Service: 09/23/21 Chief Complaint: Left lower extremity wound History of Wound: This is a 76-year-old male who presents to the wound care center for a left lower extremity wound that has not healed complicated by chronic venous insufficiency. Patient is accompanied by his and states that he wears compression stockings every other day and not daily. He denies being a diabetic and states that his recent hemoglobin A1c was 5.8%. He states that he bumped his left lower leg and noticed a small raised area that was open and weeping. He states that this scabbed over which is easily removed during washing but rescabs over. He denies any nausea, vomiting, fever, chills, shortness of breath, or other constitutional symptoms. Subjective Subjective This is a 76-year-old male who presents to the wound care center for follow-up of left lower extremity wound that is not healed complicated by chronic venous insufficiency. He denies any nausea, vomiting, fever, chills, shortness of breath, or other constitutional symptoms. He states they have been continuing to change the dressings daily to his wound site. He is accompanied by his and has no other complaints. Objective Data Objective Data Vital Signs: Vital Signs Temp Pulse Resp BP 96.9 F L 69 18 124/66 H 09/23/21 09:30 09/16/21 09:46 09/09/21 09:19 09/16/21 09:46 Weight: 112.491 kg Body Mass Index (BMI) 35.6 Physical Exam Const alert, oriented x3 and no apparent distress General Appearance: cooperative and comfortable HEENT normocephalic Eyes General Eye: normal appearance of both eyes Neck General: normal visual inspection Chest inspection of chest normal Resp normal respiratory effort Cardio regular rate and regular rhythm Skin Skin Narrative: Left leg medial lower extremity wound with dried yellow crusted covering secondary to chronic venous insufficiency. Surrounding skin is reddish-purple with hemosiderin stained deposition about the left lower extremity extending distally to the ankle. Right lower extremity demonstrates localized area of rubor without breakdown of skin or margins consistent with chronic venous insufficiency. No localized signs of infection to the left wound site. General Skin Exam: venous stasis and dermatitis Wound Narrative: Left lower extremity ulceration with dried yellow crusted covering secondary to chronic venous insufficiency with no localized signs of infection. Surrounding skin is reddish-purple with hemosiderin stained deposition about the left lower extremity extending distally to the ankle. Neuro oriented x3 and moves all extremities Motor Exam: strength 5/5 throughout Debridement Note Debridement Note Wound debrided: Left medial leg ulcer Laterality: Left Wound Grade/Stage: Flores stage I Type of Debridement: Excisional debridement Anesthesia Used: 5% Lidocaine Gel Depth: in the subcutaneous layer Percentage of wound debrided: 100 Instrument Used: 3mm curette Tissue Removed: Fibrous, devitalized subcutaneous, biofilm, slough Severity: Fat Layer Exposed Amount of bleeding with debridement: Mild Bleeding Controlled with: Pressure Patient tolerated procedure: Patient tolerated procedure well Post-Debridement Measurements and Additional Note: Post-Debridement Measurements/Treatment - Nurse 1 - General Ulcer Assessment Start: 09/02/21 09:03 Freq: Status: Active Protocol: ANTHONY Activity Type Activity Date Activity User E-Sign Co-Sign Detail Recorded Client Recorded Date Recorded By Document 09/02/21 09:10 CHER [id number] 09/02/21 09:54 Document 09/09/21 09:19 JF [id number] 09/09/21 09:29 JF Document 09/16/21 09:46 KR [id number] 09/16/21 09:57 KR Document 09/23/21 09:30 AK [id number] 09/23/21 09:37 AK 09/02/21 09/09/21 09/16/21 09:10 09:19 09:46 - Today's Visit Information Type of service Initial Visit Follow-up Visit Follow-up Visit (Physician/NURSE ASSESSOR (Physician/NURSE ASSESSOR ) ) Arrival Mode Ambulatory Ambulatory Ambulatory Accompanied by Patient Identification Verified (Name & Yes Yes Yes ) Patient Requires Transmission-Based No No Precautions Safety Precautions Height and Weight Height 5 ft 10 in Weight 112.491 kg Weight in Pounds 248.0 lbs Weight Measurement Method Standing Scale Body Mass Index (BMI) 35.6 35.6 35.6 BMI Classification Obese Obese Obese BSA - Isael 2.29 Vital Signs Temperature (97.8 F-99.1 F) 97.4 F L 97.1 F L 97.0 F L Temperature Source Temporal Temporal Temporal Pulse Rate (60-100) 59 L 60 69 Pulse Location Monitor Monitor Monitor Respiratory Rate (12-18) 16 18 Respiratory rate source Observation Observation Blood Pressure (90/60-120/80) 166/72 H 179/60 H 124/66 H Blood Pressure Mean (mm Hg) 103 99 85 Source Monitor Monitor Monitor Position Semi-Fowlers Semi-Fowlers Semi-Fowlers Blood Pressure Location Right Arm Right Arm Right Arm History Since Last Visit- (Skip if this is Patient's initial visit) Have you changed medications since your No No No last visit? Any new allergies or adverse reactions No No Had a fall/change in ADL's that may No No increase risk of falls Signs or symptoms of abuse and/or No No neglect since last visit Have you been in the hospital since your No No last visit? Has dressing in place as prescribed Yes Yes Has compression in place as prescribed Yes Yes Has offloadiing in place as prescribed N/A N/A Experienced any changes in pain level or No No management Left Footwear Regular Shoe Regular Shoe Regular Shoe Right Footwear Regular Shoe Regular Shoe Regular Shoe Pain Scale: 0-10 Numeric Is Patient Pain Free? Yes Yes Yes Communication Assessment Preferred language Spanish Thread Puller Required No Able to Read Yes: Partial vision impairment from Macular degeneration with surgery. Able to Write Yes Caregiver Communication Skills No Impairment Impairment Right Hearing Abillity Normal Left Hearing Abillity Normal Teaching Assessment Preferences Verbal,Written, Audio/Visual, Demonstration Barriers to Learning Vision Impairment Readiness To Learn Excellent Willingness to Engage in Self Management High Activies Readiness to Engage in Self Management High Activities Anxiety Level Calm Cooperation Cooperative Perception Coherent Interest in Health Problem Asks Questions Education Importance Acknowledges Need Does Patient Smoke tobacco or other No substances Is Patient Diabetic Yes Functional Assessment Recent Decline in Ability to Perform Denies Any Declines Culture/Yazidi/[employer] [place] 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 [employer] [place] Stayer Machine Operator to contact place of yazidi No 09/23/21 09:30 WC - Today's Visit Information Type of service Follow-up Visit (Physician/NURSE ASSESSOR ) Arrival Mode Ambulatory Accompanied by Patient Identification Verified (Name & Yes ) Patient Requires Transmission-Based No Precautions Safety Precautions NA Height and Weight Height Weight Weight in Pounds Weight Measurement Method Body Mass Index (BMI) 35.6 BMI Classification Obese BSA - Isael Vital Signs Temperature (97.8 F-99.1 F) 96.9 F L Temperature Source Temporal Pulse Rate (60-100) Pulse Location Respiratory Rate (12-18) Respiratory rate source Blood Pressure (90/60-120/80) Blood Pressure Mean (mm Hg) Source Position Blood Pressure Location History Since Last Visit- (Skip if this is Patient's initial visit) Have you changed medications since your No last visit? Any new allergies or adverse reactions No Had a fall/change in ADL's that may No increase risk of falls Signs or symptoms of abuse and/or No neglect since last visit Have you been in the hospital since your No last visit? Has dressing in place as prescribed Yes Has compression in place as prescribed Yes Has offloadiing in place as prescribed N/A Experienced any changes in pain level or No management Left Footwear Regular Shoe Right Footwear Regular Shoe Pain Scale: 0-10 Numeric Is Patient Pain Free? 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 [employer] [place] Stayer Machine Operator to contact place of yazidi WC - Nurse 1 - General Ulcer Measurement Start: 09/02/21 09:03 Freq: Status: Active Protocol: Activity Type Activity Date Activity User E-Sign Co-Sign Detail Recorded Client Recorded Date Recorded By Document 09/02/21 09:10 CHER [id number] 09/02/21 09:54 JF Document 09/09/21 09:19 JF [id number] 09/09/21 09:29 JF Document 09/16/21 09:46 KR [id number] 09/16/21 09:57 KR Document 09/23/21 09:30 AK [id number] 09/23/21 09:37 AK 09/02/21 09/09/21 09/16/21 09:10 09:19 09:46 #1 Left Medial LE -Combined with other wound No -Current Size (cm) - Length 1.3 1.9 -Current Size (cm) - Width 0.6 0.9 -Current Size (cm) - Depth 0.2 0.2 -Total Square Cm 0.78 1.71 -Photo Taken No -Epithelialization Small 1-33% -Tunneling No -Undermining/Tunneling No -Circular Undermining No -Change in Wound Grade/Stage -Exudate Amt Small Medium -Exudate Type Serosanguineous -Wound Margin Flat & Intact Distinct, Outline Attached -Granulation Amt None Present (0 Medium (34-66%) %) -Granulation Quality Red -Slough/Fibrin Yes -Necrosis Amt Large (67-100%) Medium (34-66%) -Necrotic Tissue Type Adherent Slough Adherent Slough -Structure Exposed N/A -Texture (Loretta-wound Skin Appearance) Assessed, Assessed, Localized Edema Scarring -Moisture (Loretta-wound Skin Appearance) Assessed,Dry/ No Abnormality, Scaly Assessed -Color (Loretta-wound Skin Appearance) Assessed, No Abnormality, Hemosiderin Assessed Staining -Temperature (Loretta-wound Skin No Abnormality No Abnormality Appearance) (Pt Warm) (Pt Warm) -Tenderness on Palpation (Loretta-wound No No Skin Appearance) -Ulcer Cleansing Rinsed/ Rinsed/ Irrigated with Irrigated with Saline Saline -Foul Odor after Cleansing No No -Anesthetic Used 5% Lidocaine 4% Lidocaine Gel Solution Wound Center Nurse 1 Lower Limb Edema Present Yes Yes Right Calf (cm) 40.5 39.0 Right Ankle (cm) 24.6 23.5 Left Calf (cm) 39.8 39.4 Left Ankle (cm) 27.6 23.7 Left Foot (cm) 09/23/21 09:30 #1 Left Medial LE -Combined with other wound No -Current Size (cm) - Length 0.8 -Current Size (cm) - Width 0.5 -Current Size (cm) - Depth 0.3 -Total Square Cm 0.40 -Photo Taken No -Epithelialization None Present -Tunneling No -Undermining/Tunneling No -Circular Undermining No -Change in Wound Grade/Stage No -Exudate Amt Medium -Exudate Type Serosanguineous -Wound Margin Distinct, Outline Attached -Granulation Amt Small (1-33%) -Granulation Quality [place] -Slough/Fibrin -Necrosis Amt Small (1-33%) -Necrotic Tissue Type Adherent Slough -Structure Exposed N/A -Texture (Loretta-wound Skin Appearance) No Abnormality, Assessed -Moisture (Loretta-wound Skin Appearance) No Abnormality, Assessed -Color (Loretta-wound Skin Appearance) Assessed, Hemosiderin Staining -Temperature (Loretta-wound Skin No Abnormality Appearance) (Pt Warm) -Tenderness on Palpation (Loretta-wound Yes Skin Appearance) -Ulcer Cleansing Rinsed/ Irrigated with Saline -Foul Odor after Cleansing No -Anesthetic Used 4% Lidocaine Solution Wound Center Nurse 1 Lower Limb Edema Present Right Calf (cm) Right Ankle (cm) Left Calf (cm) Left Ankle (cm) 26 Left Foot (cm) 39 WC - Nurse 2 - General Ulcer CM Notes Start: 09/02/21 09:03 Freq: Status: Active Protocol: Activity Type Activity Date Activity User E-Sign Co-Sign Detail Recorded Client Recorded Date Recorded By Document 09/02/21 12:40 PL [id number] 09/02/21 12:45 PL Document 09/09/21 12:58 PL [id number] 09/09/21 12:59 PL Document 09/16/21 15:33 PL [id number] 09/16/21 15:34 PL 09/02/21 09/09/21 09/16/21 12:40 12:58 15:33 Wound Center Nurse 2 #1 Left Medial LE -Time 09:49 10:17 -Correct Patient Yes Yes -Correct Side, Site, Position Yes Yes -Correct Procedure Yes Yes -Procedure Performed Yes Yes -Type of Procedure Debridement Debridement -Clinical Debridement Subcutaneous Subcutaneous -Tissue Removed Subcutaneous Subcutaneous -Post Debridement (cm) - Length 1.3 1.9 -Post Debridement (cm) - Width 0.6 0.9 -Post Debridement (cm) - Depth 0.2 0.2 -Total Square (Post) (cm) 0.78 1.71 -Area of Debridement (cm) - Length 1.3 1.9 -Area of Debridement (cm) - Width 0.6 0.9 -Total Square (Area) (cm) 0.78 1.71 -Tunneling No No -Undermining/Tunneling No No -Circular Undermining No No -Wound/Ulcer Outcome Not Healed Not Healed -Ulcer Cleansing Rinsed/ Rinsed/ Irrigated with Irrigated with Saline Saline -Foul Odor after Cleansing No No -Bioengineered Tissue No No -Bleeding Controlled with Pressure Pressure -Treatment Response Procedure Procedure Tolerated Well Tolerated Well -Debridement - Subq, 1st 20sq cm Yes Yes #1 Left Medial LE -Time 09:30 -Correct Patient Yes -Correct Side, Site, Position Yes -Correct Procedure Yes -Procedure Performed Yes -Type of Procedure Debridement -Clinical Debridement Subcutaneous -Tissue Removed Subcutaneous -Post Debridement (cm) - Length 1.0 -Post Debridement (cm) - Width 1.0 -Post Debridement (cm) - Depth 0.1 -Total Square (Post) (cm) 1.00 -Area of Debridement (cm) - Length 1.0 -Area of Debridement (cm) - Width 1.0 -Total Square (Area) (cm) 1.00 -Tunneling No -Undermining/Tunneling No -Circular Undermining No -Wound/Ulcer Outcome Not Healed -Ulcer Cleansing Rinsed/ Irrigated with Saline -Foul Odor after Cleansing No -Bioengineered Tissue No -Bleeding Controlled with Pressure -Treatment Response Procedure Tolerated Well -Debridement - Subq, 1st 20sq cm Yes Pain Scale: 0-10 Numeric Is Patient Pain Free? Yes Yes Yes - Nurse 3 - General Ulcer D/C NN Start: 09/02/21 09:03 Freq: Status: Active Protocol: Activity Type Activity Date Activity User E-Sign Co-Sign Detail Recorded Client Recorded Date Recorded By Document 09/02/21 12:40 PL [id number] 09/02/21 12:45 PL Document 09/16/21 10:44 AK [id number] 09/16/21 10:45 AK Document 09/23/21 10:37 JF [id number] 09/23/21 10:37 09/02/21 09/16/21 09/23/21 12:40 10:44 10:37 Pain Scale: 0-10 Numeric Is Patient Pain Free? Yes Yes Yes Wound Care Nurse 3 #1 Left Medial LE -Ulcer Cleansing Rinsed/ Rinsed/ Irrigated with Irrigated with Saline Saline -Foul Odor after Cleansing No No -Primary Dressing Applied C Hydrogel ($) C Hydrogel ($), C Hydrogel ($), Promogran Promogran Brinda Matter Brinda Matter -Primary Dressing Covered/Secured with Dry Gauze & Dry Gauze & Dry Gauze & Roll Gauze, Roll Gauze, Roll Gauze, Secured with Secured with Secured with Tape Tape Tape -Promogran Brinda Matter 1 1 Left -Tubular Bandage Double Layer Double Layer -Size of Tubigrip Used Size E Size F -Size E ($) 4 -Size F ($) 2 -Other own tubi Right -Tubular Bandage Double Layer Double Layer -Size of Tubigrip Used Size E Size F -Size E ($) 4 -Size F ($) 2 WC - Visit Discharge Discharge Condition Stable Stable Ambulatory Status Ambulatory Transportation Private Auto Private Auto Accompanied by Medication Reconcilliation completed & Yes provided to patient/care provider Clinical Summary of Care Provided Yes Assessment/Plan Assessment/Plan (1) Non-pressure chronic ulcer of left calf with fat layer exposed: CODE(S): L97.222 - Non-pressure chronic ulcer of left calf with fat layer exposed (2) Venous insufficiency (chronic) (peripheral): CODE(S): I87.2 - Venous insufficiency (chronic) (peripheral) (3) Bilateral edema of lower extremity: CODE(S): R60.0 - Localized edema PLAN: This is a 76-year-old male who presents to the wound care center for a medial left lower extremity wound secondary to chronic venous insufficiency. He states that he bumped his left leg and had developed a small raised area that weeps some fluid and crusted over with a yellow scab. He states the scab comes off when washing but returns again. He states that he only wears compression stockings every other day and cites difficulty getting them on. He has previously tried zipper stockings and also cites difficulty with these. He is accompanied by his who also states she has arthritis in her hands and cannot help her get the stockings on. Recent labs from 08/18/2021 in which he had a hemoglobin A1c of 5.8%. He denies being diabetic. He has palpable pedal pulses DP and PT bilaterally. Left lower extremity medial ulceration site demonstrates progression with a mixed fibrotic granular base and no localized signs of infection. Left lower extremity medial ulceration site was sharply debrided with a 3 mm curette removing fibrous, devitalized subcutaneous, biofilm, slough. Brinda, hydrogel and a dry sterile dressing applied to the site to be changed daily. I discussed with the patient and his that he needs to be compliant and continued use of compression stockings daily as this is essential for healing. Given his difficulty in being able to get the compression stockings onto his leg, he is to begin CircAid compression wraps with Velcro tabs to be worn daily to both lower extremities. Right lower extremity site of jeny demonstrates no open wounds and will continue to be monitored for any changes. I discussed with his chronic venous insufficiency a compression garment will be duron to reducing edema and allowing the wound sites to heal. Patient and voiced understanding of this. His ulceration is demonstrating good progression in healing with a reduction in size and is now measuring 0.8 cm x 0.5 cm x 0.3 cm. I discussed proper diet control and exercise to prevent onset of diabetes mellitus type 2, patient states that he will try his best. I discussed continued exercise as this will also aid in venous return, aid in weight loss, and help prevent onset of type 2 diabetes mellitus. I reviewed and discussed his case today. Debridement was performed today as noted in the clinical panel to all of the ulcer sites. The following work up and care recommendations were made: Dressing: Brinda, hydrogel and dry sterile dressing Wash: Soap and water Tissue growth optimization: Brinda and hydrogel Offload: CircAid compression dressing Vascular: Palpable pedal pulses DP and PT Edema: Patient to wear CircAid compression, elevate lower extremities at times of rest, dorsiflex and plantarflex the foot to aid in venous return by the calf muscle Infection: No localized signs of infection Pain: Patient may take [id number] Tylenol for discomfort Host factors: Chronic venous insufficiency and edema I answered all the patient's questions. To return to the wound healing center in 1 week or call sooner if the patient has any questions or concerns. Note: Snippets speech recognition pharmacy technician inpatient software was used to create portions of this document. Sound-alike and misspelled words, as well as other pharmacy technician inpatient errors may be contained in the documentation.
[2021-09-30 10:20] VITALS: BP 147/74; PULSE 63; TEMP 36; BMI 35.6
--- NOTE | 2021-09-30 12:53 | PCM.WC.PN ---
History of Present Illness Date of Service: 09/30/21 Chief Complaint: Left lower extremity wound History of Wound: This is a 76-year-old male who presents to the wound care center for a left lower extremity wound that has not healed complicated by chronic venous insufficiency. Patient is accompanied by his and states that he wears compression stockings every other day and not daily. He denies being a diabetic and states that his recent hemoglobin A1c was 5.8%. He states that he bumped his left lower leg and noticed a small raised area that was open and weeping. He states that this scabbed over which is easily removed during washing but rescabs over. He denies any nausea, vomiting, fever, chills, shortness of breath, or other constitutional symptoms. Subjective Subjective This is a 76-year-old male who presents to the wound care center for follow-up of left lower extremity wound that is not healed complicated by chronic venous insufficiency. He denies any nausea, vomiting, fever, chills, shortness of breath, or other constitutional symptoms. He states they have been continuing to change the dressings daily to his wound site. He is accompanied by his and has no other complaints. Objective Data Objective Data Vital Signs: Vital Signs Temp Pulse Resp BP 96.8 F L 63 18 147/74 H 09/30/21 10:20 09/30/21 10:20 09/09/21 09:19 09/30/21 10:20 Weight: 112.491 kg Body Mass Index (BMI) 35.6 Physical Exam Const alert, oriented x3 and no apparent distress General Appearance: cooperative and comfortable HEENT normocephalic Eyes General Eye: normal appearance of both eyes Neck General: normal visual inspection Chest inspection of chest normal Resp normal respiratory effort Cardio regular rate and regular rhythm Skin Skin Narrative: Left leg medial lower extremity wound with dried yellow crusted covering secondary to chronic venous insufficiency. Surrounding skin is reddish-purple with hemosiderin stained deposition about the left lower extremity extending distally to the ankle. Right lower extremity demonstrates localized area of rubor without breakdown of skin or margins consistent with chronic venous insufficiency. No localized signs of infection to the left wound site. General Skin Exam: venous stasis and dermatitis Wound Narrative: Left lower extremity ulceration with dried yellow crusted covering secondary to chronic venous insufficiency with no localized signs of infection. Surrounding skin is reddish-purple with hemosiderin stained deposition about the left lower extremity extending distally to the ankle. Neuro oriented x3 and moves all extremities Motor Exam: strength 5/5 throughout Debridement Note Debridement Note Wound debrided: Left medial leg Laterality: Left Wound Grade/Stage: Flores stage I Type of Debridement: Excisional debridement Anesthesia Used: 4% Lidocaine Solution Depth: Down to and including healthy tissue and in the subcutaneous layer Percentage of wound debrided: 100 Instrument Used: 3mm curette Tissue Removed: Fibrous, devitalized subcutaneous, biofilm, slough Severity: Fat Layer Exposed Amount of bleeding with debridement: Mild Bleeding Controlled with: Compression and gauze Patient tolerated procedure: Patient tolerated procedure well Post-Debridement Measurements and Additional Note: Post-Debridement Measurements/Treatment - Nurse 1 - General Ulcer Assessment Start: 09/02/21 09:03 Freq: Status: Active Protocol: ANTHONY Activity Type Activity Date Activity User E-Sign Co-Sign Detail Recorded Client Recorded Date Recorded By Document 09/02/21 09:10 CHER [id number] 09/02/21 09:54 Document 09/09/21 09:19 [id number] 09/09/21 09:29 JF Document 09/16/21 09:46 KR [id number] 09/16/21 09:57 KR Document 09/23/21 09:30 AK [id number] 09/23/21 09:37 AK Document 09/30/21 10:20 KR [id number] 09/30/21 10:27 KR 09/02/21 09/09/21 09/16/21 09:10 09:19 09:46 - Today's Visit Information Type of service Initial Visit Follow-up Visit Follow-up Visit (Physician/VOLCANOLOGY PROFESSOR (Physician/VOLCANOLOGY PROFESSOR ) ) Arrival Mode Ambulatory Ambulatory Ambulatory Accompanied by Patient Identification Verified (Name & Yes Yes Yes ) Patient Requires Transmission-Based No No Precautions Safety Precautions Height and Weight Height 5 ft 10 in Weight 112.491 kg Weight in Pounds 248.0 lbs Weight Measurement Method Standing Scale Body Mass Index (BMI) 35.6 35.6 35.6 BMI Classification Obese Obese Obese BSA - Isael 2.29 Vital Signs Temperature (97.8 F-99.1 F) 97.4 F L 97.1 F L 97.0 F L Temperature Source Temporal Temporal Temporal Pulse Rate (60-100) 59 L 60 69 Pulse Location Monitor Monitor Monitor Respiratory Rate (12-18) 16 18 Respiratory rate source Observation Observation Blood Pressure (90/60-120/80) 166/72 H 179/60 H 124/66 H Blood Pressure Mean (mm Hg) 103 99 85 Source Monitor Monitor Monitor Position Semi-Fowlers Semi-Fowlers Semi-Fowlers Blood Pressure Location Right Arm Right Arm Right Arm History Since Last Visit- (Skip if this is Patient's initial visit) Have you changed medications since your No No No last visit? Any new allergies or adverse reactions No No Had a fall/change in ADL's that may No No increase risk of falls Signs or symptoms of abuse and/or No No neglect since last visit Have you been in the hospital since your No No last visit? Has dressing in place as prescribed Yes Yes Has compression in place as prescribed Yes Yes Has offloadiing in place as prescribed N/A N/A Experienced any changes in pain level or No No management Left Footwear Regular Shoe Regular Shoe Regular Shoe Right Footwear Regular Shoe Regular Shoe Regular Shoe Pain Scale: 0-10 Numeric Is Patient Pain Free? Yes Yes Yes Communication Assessment Preferred language Ang[place] Light Bulb Tester Required No Able to Read Yes: Partial vision impairment from Macular degeneration with surgery. Able to Write Yes Caregiver Communication Skills No Impairment Impairment Right Hearing Abillity Normal Left Hearing Abillity Normal Teaching Assessment Preferences Verbal,Written, Audio/Visual, Demonstration Barriers to Learning Vision Impairment Readiness To Learn Excellent Willingness to Engage in Self Management High Activies Readiness to Engage in Self Management High Activities Anxiety Level Calm Cooperation Cooperative Perception Coherent Interest in Health Problem Asks Questions Education Importance Acknowledges Need Does Patient Smoke tobacco or other No substances Is Patient Diabetic Yes Functional Assessment Recent Decline in Ability to Perform Denies Any Declines Culture/Episcopalian/Retail Account Manager Cultural/Episcopalian Needs that may affect No Treatment Plan Would you allow our hospital wet silk hanger to No meet you for the purpose of spiritual/ emotional support? Retail Account Manager to contact place of yarsanism No 09/23/21 09/30/21 09:30 10:20 WC - Today's Visit Information Type of service Follow-up Visit Follow-up Visit (Physician/VOLCANOLOGY PROFESSOR (Physician/VOLCANOLOGY PROFESSOR ) ) Arrival Mode Ambulatory Ambulatory Accompanied by Patient Identification Verified (Name & Yes Yes ) Patient Requires Transmission-Based No Precautions Safety Precautions NA Height and Weight Height Weight Weight in Pounds Weight Measurement Method Body Mass Index (BMI) 35.6 35.6 BMI Classification Obese Obese BSA - Isael Vital Signs Temperature (97.8 F-99.1 F) 96.9 F L 96.8 F L Temperature Source Temporal Temporal Pulse Rate (60-100) 63 Pulse Location Monitor Respiratory Rate (12-18) Respiratory rate source Blood Pressure (90/60-120/80) 147/74 H Blood Pressure Mean (mm Hg) 98 Source Monitor Position Semi-Fowlers Blood Pressure Location Right Arm History Since Last Visit- (Skip if this is Patient's initial visit) Have you changed medications since your No No last visit? Any new allergies or adverse reactions No No Had a fall/change in ADL's that may No No increase risk of falls Signs or symptoms of abuse and/or No No neglect since last visit Have you been in the hospital since your No No last visit? Has dressing in place as prescribed Yes Yes Has compression in place as prescribed Yes Yes Has offloadiing in place as prescribed N/A N/A Experienced any changes in pain level or No No management Left Footwear Regular Shoe Regular Shoe Right Footwear Regular Shoe Regular Shoe Pain Scale: 0-10 Numeric Is Patient Pain Free? Yes Yes Communication Assessment Preferred whitewater rafting guide Required Able to Read Able to Write Caregiver Communication Skills Impairment Right Hearing Abillity Left Hearing Abillity Teaching Assessment Preferences Barriers to Learning Readiness To Learn Willingness to Engage in Self Management Activies Readiness to Engage in Self Management Activities Anxiety Level Cooperation Perception Interest in Health Problem Education Importance Does Patient Smoke tobacco or other substances Is Patient Diabetic Functional Assessment Recent Decline in Ability to Perform Culture/Episcopalian/Retail Account Manager Cultural/Episcopalian Needs that may affect Treatment Plan Would you allow our hospital wet silk hanger to meet you for the purpose of spiritual/ emotional support? Retail Account Manager to contact place of yarsanism WC - Nurse 1 - General Ulcer Measurement Start: 09/02/21 09:03 Freq: Status: Active Protocol: Activity Type Activity Date Activity User E-Sign Co-Sign Detail Recorded Client Recorded Date Recorded By Document 09/02/21 09:10 CHER [id number] 09/02/21 09:54 CHER Document 09/09/21 09:19 CHER [id number] 09/09/21 09:29 Document 09/16/21 09:46 KR [id number] 09/16/21 09:57 KR Document 09/23/21 09:30 AK [id number] 09/23/21 09:37 AK Document 09/30/21 10:20 KR [id number] 09/30/21 10:27 KR 09/02/21 09/09/21 09/16/21 09:10 09:19 09:46 #1 Left Medial LE -Combined with other wound No -Current Size (cm) - Length 1.3 1.9 -Current Size (cm) - Width 0.6 0.9 -Current Size (cm) - Depth 0.2 0.2 -Total Square Cm 0.78 1.71 -Photo Taken No -Epithelialization Small 1-33% -Tunneling No -Undermining/Tunneling No -Circular Undermining No -Change in Wound Grade/Stage -Exudate Amt Small Medium -Exudate Type Serosanguineous -Wound Margin Flat & Intact Distinct, Outline Attached -Granulation Amt None Present (0 Medium (34-66%) %) -Granulation Quality Red -Slough/Fibrin Yes -Necrosis Amt Large (67-100%) Medium (34-66%) -Necrotic Tissue Type Adherent Slough Adherent Slough -Structure Exposed N/A -Texture (Loretta-wound Skin Appearance) Assessed, Assessed, Localized Edema Scarring -Moisture (Loretta-wound Skin Appearance) Assessed,Dry/ No Abnormality, Scaly Assessed -Color (Loretta-wound Skin Appearance) Assessed, No Abnormality, Hemosiderin Assessed Staining -Temperature (Loretta-wound Skin No Abnormality No Abnormality Appearance) (Pt Warm) (Pt Warm) -Tenderness on Palpation (Loretta-wound No No Skin Appearance) -Ulcer Cleansing Rinsed/ Rinsed/ Irrigated with Irrigated with Saline Saline -Foul Odor after Cleansing No No -Anesthetic Used 5% Lidocaine 4% Lidocaine Gel Solution Wound Center Nurse 1 Lower Limb Edema Present Yes Yes Right Calf (cm) 40.5 39.0 Right Ankle (cm) 24.6 23.5 Left Calf (cm) 39.8 39.4 Left Ankle (cm) 27.6 23.7 Left Foot (cm) 09/23/21 09/30/21 09:30 10:20 #1 Left Medial LE -Combined with other wound No -Current Size (cm) - Length 0.8 1.4 -Current Size (cm) - Width 0.5 0.5 -Current Size (cm) - Depth 0.3 0.1 -Total Square Cm 0.40 0.70 -Photo Taken No -Epithelialization None Present -Tunneling No -Undermining/Tunneling No -Circular Undermining No -Change in Wound Grade/Stage No -Exudate Amt Medium Small -Exudate Type Serosanguineous Serosanguineous -Wound Margin Distinct, Distinct, Outline Outline Attached Attached -Granulation Amt Small (1-33%) Small (1-33%) -Granulation Quality [place] Red -Slough/Fibrin -Necrosis Amt Small (1-33%) Small (1-33%) -Necrotic Tissue Type Adherent Slough Adherent Slough -Structure Exposed N/A -Texture (Loretta-wound Skin Appearance) No Abnormality, Assessed, Assessed Scarring -Moisture (Loretta-wound Skin Appearance) No Abnormality, No Abnormality, Assessed Assessed -Color (Loretta-wound Skin Appearance) Assessed, No Abnormality, Hemosiderin Assessed Staining -Temperature (Loretta-wound Skin No Abnormality No Abnormality Appearance) (Pt Warm) (Pt Warm) -Tenderness on Palpation (Loretta-wound Yes No Skin Appearance) -Ulcer Cleansing Rinsed/ Rinsed/ Irrigated with Irrigated with Saline Saline -Foul Odor after Cleansing No No -Anesthetic Used 4% Lidocaine 5% Lidocaine Solution Gel Wound Center Nurse 1 Lower Limb Edema Present Right Calf (cm) Right Ankle (cm) Left Calf (cm) Left Ankle (cm) 26 Left Foot (cm) 39 WC - Nurse 2 - General Ulcer CM Notes Start: 09/02/21 09:03 Freq: Status: Active Protocol: Activity Type Activity Date Activity User E-Sign Co-Sign Detail Recorded Client Recorded Date Recorded By Document 09/02/21 12:40 PL [id number] 09/02/21 12:45 PL Document 09/09/21 12:58 PL [id number] 09/09/21 12:59 PL Document 09/16/21 15:33 PL [id number] 09/16/21 15:34 PL Document 09/23/21 13:28 PL [id number] 09/23/21 13:28 PL Document 09/30/21 11:35 PL Desktop 09/30/21 11:36 PL 09/02/21 09/09/21 09/16/21 12:40 12:58 15:33 Wound Center Nurse 2 #1 Left Medial LE -Time 09:49 10:17 -Correct Patient Yes Yes -Correct Side, Site, Position Yes Yes -Correct Procedure Yes Yes -Procedure Performed Yes Yes -Type of Procedure Debridement Debridement -Clinical Debridement Subcutaneous Subcutaneous -Tissue Removed Subcutaneous Subcutaneous -Post Debridement (cm) - Length 1.3 1.9 -Post Debridement (cm) - Width 0.6 0.9 -Post Debridement (cm) - Depth 0.2 0.2 -Total Square (Post) (cm) 0.78 1.71 -Area of Debridement (cm) - Length 1.3 1.9 -Area of Debridement (cm) - Width 0.6 0.9 -Total Square (Area) (cm) 0.78 1.71 -Tunneling No No -Undermining/Tunneling No No -Circular Undermining No No -Wound/Ulcer Outcome Not Healed Not Healed -Ulcer Cleansing Rinsed/ Rinsed/ Irrigated with Irrigated with Saline Saline -Foul Odor after Cleansing No No -Bioengineered Tissue No No -Bleeding Controlled with Pressure Pressure -Treatment Response Procedure Procedure Tolerated Well Tolerated Well -Debridement - Subq, 1st 20sq cm Yes Yes #1 Left Medial LE -Time 09:30 -Correct Patient Yes -Correct Side, Site, Position Yes -Correct Procedure Yes -Procedure Performed Yes -Type of Procedure Debridement -Clinical Debridement Subcutaneous -Tissue Removed Subcutaneous -Post Debridement (cm) - Length 1.0 -Post Debridement (cm) - Width 1.0 -Post Debridement (cm) - Depth 0.1 -Total Square (Post) (cm) 1.00 -Area of Debridement (cm) - Length 1.0 -Area of Debridement (cm) - Width 1.0 -Total Square (Area) (cm) 1.00 -Tunneling No -Undermining/Tunneling No -Circular Undermining No -Wound/Ulcer Outcome Not Healed -Ulcer Cleansing Rinsed/ Irrigated with Saline -Foul Odor after Cleansing No -Bioengineered Tissue No -Bleeding Controlled with Pressure -Treatment Response Procedure Tolerated Well -Debridement - Subq, 1st 20sq cm Yes Pain Scale: 0-10 Numeric Is Patient Pain Free? Yes Yes Yes 09/23/21 09/30/21 13:28 11:35 Wound Center Nurse 2 #1 Left Medial LE -Time 10:15 11:05 -Correct Patient Yes Yes -Correct Side, Site, Position Yes Yes -Correct Procedure Yes Yes -Procedure Performed Yes Yes -Type of Procedure Debridement Debridement -Clinical Debridement Subcutaneous Subcutaneous -Tissue Removed Subcutaneous Subcutaneous -Post Debridement (cm) - Length 0.8 1.5 -Post Debridement (cm) - Width 0.5 0.5 -Post Debridement (cm) - Depth 0.3 0.1 -Total Square (Post) (cm) 0.40 0.75 -Area of Debridement (cm) - Length 0.8 1.5 -Area of Debridement (cm) - Width 0.5 0.5 -Total Square (Area) (cm) 0.40 0.75 -Tunneling No No -Undermining/Tunneling No No -Circular Undermining No No -Wound/Ulcer Outcome Not Healed Not Healed -Ulcer Cleansing Rinsed/ Rinsed/ Irrigated with Irrigated with Saline Saline -Foul Odor after Cleansing No No -Bioengineered Tissue No No -Bleeding Controlled with Pressure Pressure -Treatment Response Procedure Procedure Tolerated Well Tolerated Well -Debridement - Subq, 1st 20sq cm Yes Yes #1 Left Medial LE -Time -Correct Patient -Correct Side, Site, Position -Correct Procedure -Procedure Performed -Type of Procedure -Clinical Debridement -Tissue Removed -Post Debridement (cm) - Length -Post Debridement (cm) - Width -Post Debridement (cm) - Depth -Total Square (Post) (cm) -Area of Debridement (cm) - Length -Area of Debridement (cm) - Width -Total Square (Area) (cm) -Tunneling -Undermining/Tunneling -Circular Undermining -Wound/Ulcer Outcome -Ulcer Cleansing -Foul Odor after Cleansing -Bioengineered Tissue -Bleeding Controlled with -Treatment Response -Debridement - Subq, 1st 20sq cm Pain Scale: 0-10 Numeric Is Patient Pain Free? Yes Yes - Nurse 3 - General Ulcer D/C NN Start: 09/02/21 09:03 Freq: Status: Active Protocol: Activity Type Activity Date Activity User E-Sign Co-Sign Detail Recorded Client Recorded Date Recorded By Document 09/02/21 12:40 PL [id number] 09/02/21 12:45 PL Document 09/16/21 10:44 CT [id number] 09/16/21 10:45 CT Document 09/23/21 10:37 [id number] 09/23/21 10:37 Document 09/30/21 11:24 CT [id number] 09/30/21 11:25 AK 09/02/21 09/16/21 09/23/21 12:40 10:44 10:37 Pain Scale: 0-10 Numeric Is Patient Pain Free? Yes Yes Yes Wound Care Nurse 3 #1 Left Medial LE -Ulcer Cleansing Rinsed/ Rinsed/ Irrigated with Irrigated with Saline Saline -Foul Odor after Cleansing No No -Negative Pressure Wound Therapy -Primary Dressing Applied C Hydrogel ($) C Hydrogel ($), C Hydrogel ($), Promogran Promogran Brinda Matter Brinda Matter -Primary Dressing Covered/Secured with Dry Gauze & Dry Gauze & Dry Gauze & Roll Gauze, Roll Gauze, Roll Gauze, Secured with Secured with Secured with Tape Tape Tape -Promogran Brinda Matter 1 1 Left -Tubular Bandage Double Layer Double Layer -Size of Tubigrip Used Size E Size F -Size E ($) 4 -Size F ($) 2 -Other own tubi Right -Tubular Bandage Double Layer Double Layer -Size of Tubigrip Used Size E Size F -Size E ($) 4 -Size F ($) 2 WC - Visit Discharge Discharge Condition Stable Stable Ambulatory Status Ambulatory Transportation Private Auto Private Auto Accompanied by Medication Reconcilliation completed & Yes provided to patient/care provider Clinical Summary of Care Provided Yes 09/30/21 11:24 Pain Scale: 0-10 Numeric Is Patient Pain Free? Yes Wound Care Nurse 3 #1 Left Medial LE -Ulcer Cleansing Rinsed/ Irrigated with Saline -Foul Odor after Cleansing No -Negative Pressure Wound Therapy N/A -Primary Dressing Applied C Hydrogel ($), Promogran Brinda Matter -Primary Dressing Covered/Secured with Dry Gauze & Roll Gauze, Secured with Tape -Promogran Brinda Matter 1 Left -Tubular Bandage -Size of Tubigrip Used -Size E ($) -Size F ($) -Other Right -Tubular Bandage -Size of Tubigrip Used -Size E ($) -Size F ($) WC - Visit Discharge Discharge Condition Stable Ambulatory Status Ambulatory Transportation Private Auto Accompanied by Medication Reconcilliation completed & Yes provided to patient/care provider Clinical Summary of Care Provided Yes Assessment/Plan Assessment/Plan (1) Non-pressure chronic ulcer of left calf with fat layer exposed: CODE(S): L97.222 - Non-pressure chronic ulcer of left calf with fat layer exposed (2) Venous insufficiency (chronic) (peripheral): CODE(S): I87.2 - Venous insufficiency (chronic) (peripheral) (3) Bilateral edema of lower extremity: CODE(S): R60.0 - Localized edema PLAN: This is a 76-year-old male who presents to the wound care center for a medial left lower extremity wound secondary to chronic venous insufficiency. He states that he bumped his left leg and had developed a small raised area that weeps some fluid and crusted over with a yellow scab. He states the scab comes off when washing but returns again. He states that he only wears compression stockings every other day and cites difficulty getting them on. He has previously tried zipper stockings and also cites difficulty with these. He is accompanied by his who also states she has arthritis in her hands and cannot help her get the stockings on. Recent labs from 08/18/2021 in which he had a hemoglobin A1c of 5.8%. He denies being diabetic. He has palpable pedal pulses DP and PT bilaterally. Left lower extremity medial ulceration site demonstrates progression with a mixed fibrotic granular base and no localized signs of infection. Left lower extremity medial ulceration site was sharply debrided with a 3 mm curette removing fibrous, devitalized subcutaneous, biofilm, slough. Brinda, hydrogel and a dry sterile dressing applied to the site to be changed daily. I discussed with the patient and his that he needs to be compliant and continued use of compression stockings daily as this is essential for healing. Given his difficulty in being able to get the compression stockings onto his leg, he is to begin CircAid compression wraps with Velcro tabs to be worn daily to both lower extremities. Right lower extremity site of rubor demonstrates no open wounds and will continue to be monitored for any changes. I discussed with his chronic venous insufficiency a compression garment will be duron to reducing edema and allowing the wound sites to heal. Patient and voiced understanding of this. His ulceration is demonstrating good progression in healing with a reduction in size and is now measuring 0.8 cm x 0.5 cm x 0.3 cm. I discussed proper diet control and exercise to prevent onset of diabetes mellitus type 2, patient states that he will try his best. I discussed continued exercise as this will also aid in venous return, aid in weight loss, and help prevent onset of type 2 diabetes mellitus. I reviewed and discussed his case today. Debridement was performed today as noted in the clinical panel to all of the ulcer sites. The following work up and care recommendations were made: Dressing: Brinda, hydrogel and dry sterile dressing Wash: Soap and water Tissue growth optimization: Brinda and hydrogel Offload: CircAid compression dressing Vascular: Palpable pedal pulses DP and PT Edema: Patient to wear CircAid compression, elevate lower extremities at times of rest, dorsiflex and plantarflex the foot to aid in venous return by the calf muscle Infection: No localized signs of infection Pain: Patient may take [id number] Tylenol for discomfort Host factors: Chronic venous insufficiency and edema I answered all the patient's questions. To return to the wound healing center in 1 week or call sooner if the patient has any questions or concerns. Note: [employer] speech recognition hand crown pouncer software was used to create portions of this document. Sound-alike and misspelled words, as well as other hand crown pouncer errors may be contained in the documentation.
== END 2021-09-30 23:59 | disposition home or self-care (01) ==
LOC: WC 10:15
PROVIDERS: PCP Family Medicine; Visit Provider Student in an Organized Health Care Education/Training Program
DX: I87.2 Venous insufficiency (chronic) (peripheral) (principal); L97.222 Non-pressure chronic ulcer of left calf with fat layer exposed; R60.0 Localized edema; Z79.890 Hormone replacement therapy; Z79.899 Other long term (current) drug therapy
CPT/HCPCS: 11042; 99213; G0463

== ENCOUNTER 2021-10-28 09:30 | Outpatient (RCR) | payer MEDICARE, OTHER, SELFPAY ==
[2021-10-01 00:11] VITALS: BP 147/74; PULSE 63; RESP 18; TEMP 36; BMI 35.6
[2021-10-07 10:08] VITALS: BP 158/66; PULSE 66; TEMP 35.7; BMI 35.6
--- NOTE | 2021-10-07 12:17 | PCM.WC.PN ---
History of Present Illness Date of Service: 10/07/21 Chief Complaint: Left lower extremity wound History of Wound: This is a 76-year-old male who presents to the wound care center for a left lower extremity wound that has not healed complicated by chronic venous insufficiency. Patient is accompanied by his and states that he wears compression stockings every other day and not daily. He denies being a diabetic and states that his recent hemoglobin A1c was 5.8%. He states that he bumped his left lower leg and noticed a small raised area that was open and weeping. He states that this scabbed over which is easily removed during washing but rescabs over. He denies any nausea, vomiting, fever, chills, shortness of breath, or other constitutional symptoms. Subjective Subjective This is a 76-year-old male who presents to the wound care center for follow-up of his left lower extremity ulceration secondary to chronic venous insufficiency. He denies any constitutional symptoms today. His states that they have been continuing to change the dressings daily to his wound site, however she feels the wound is not making progress and questions if weekly debridement is making it worse. Objective Data Objective Data Vital Signs: Vital Signs Temp Pulse Resp BP 96.2 F L 66 18 158/66 H 10/07/21 10:08 10/07/21 10:08 10/01/21 00:11 10/07/21 10:08 Weight: 112.491 kg Body Mass Index (BMI) 35.6 Physical Exam Const alert, oriented x3 and no apparent distress General Appearance: cooperative and comfortable HEENT normocephalic Eyes General Eye: normal appearance of both eyes Neck General: normal visual inspection Lymph Lymphatic: no lymphadenopathy noted and no lymphedema noted Chest inspection of chest normal Resp normal respiratory effort Cardio regular rate and regular rhythm Extremity normal capillary refill and no calf tenderness Peripheral Pulses: Yes posterior tibial pulses present and dorsalis pedis pulses present Skin no rashes or lesions noted and skin turgor normal Skin Narrative: Left medial lower extremity wound with dried yellow crusted covering secondary to chronic venous insufficiency. Surrounding skin is reddish?purple with hemosiderin stained deposition about the left lower extremity extending distally to the ankle. Right lower extremity demonstrates localized area of rubor without breakdown of skin or margins consistent with chronic venous insufficiency. No localized signs of infection. General Skin Exam: venous stasis and dermatitis Wound Narrative: Left lower extremity ulceration with dried yellow crusting covering secondary to chronic venous insufficiency with no localized signs of infection. Surrounding skin is reddish-purple with hemosiderin stained deposition about the left lower extremity extending distally to the ankle. Neuro oriented x3 and moves all extremities Motor Exam: strength 5/5 throughout and clonus absent Debridement Note Debridement Note Wound debrided: Left medial leg Laterality: Left Wound Grade/Stage: Flores stage I Type of Debridement: Excisional debridement Anesthesia Used: 4% Lidocaine Solution Depth: Down to and including healthy tissue and in the subcutaneous layer Percentage of wound debrided: 100 Instrument Used: 3mm curette Tissue Removed: Fibrous, devitalized subcutaneous, biofilm, slough Severity: Fat Layer Exposed Amount of bleeding with debridement: Mild Bleeding Controlled with: Compression and gauze Patient tolerated procedure: Patient tolerated procedure well Post-Debridement Measurements and Additional Note: Post-Debridement Measurements/Treatment - Nurse 1 - General Ulcer Assessment Start: 10/07/21 10:08 Freq: Status: Active Protocol: ANTHONY Activity Type Activity Date Activity User E-Sign Co-Sign Detail Recorded Client Recorded Date Recorded By Document 10/07/21 10:08 CARMEN [id number] 10/07/21 10:12 CARMEN 10/07/21 10:08 - Today's Visit Information Type of service Follow-up Visit (Physician/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 Any new allergies or adverse reactions No Had a fall/change in ADL's that may No increase risk of falls Signs or symptoms of abuse and/or No neglect since last visit Have you been in the hospital since your No last visit? Has dressing in place as prescribed Yes Has compression in place as prescribed Yes Has offloadiing in place as prescribed N/A Experienced any changes in pain level or No management Left Footwear Regular Shoe Right Footwear Regular Shoe Pain Scale: 0-10 Numeric Is Patient Pain Free? Yes - Nurse 1 - General Ulcer Measurement Start: 10/07/21 10:08 Freq: Status: Active Protocol: Activity Type Activity Date Activity User E-Sign Co-Sign Detail Recorded Client Recorded Date Recorded By Document 10/07/21 10:08 [place] [id number] 10/07/21 10:12 [place] 10/07/21 10:08 Wound Center Nurse 1 #1 Left Medial LE -Combined with other wound No -Current Size (cm) - Length 1.4 -Current Size (cm) - Width 1 -Current Size (cm) - Depth 0.2 -Total Square Cm 1.4 -Photo Taken No -Tunneling No -Undermining/Tunneling No -Circular Undermining No -Change in Wound Grade/Stage No -Exudate Amt Medium -Exudate Type Serosanguineous -Wound Margin Distinct, Outline Attached -Granulation Amt Medium (34-66%) -Granulation Quality Hyper- granulation,Red -Slough/Fibrin No -Necrosis Amt Small (1-33%) -Necrotic Tissue Type Adherent Slough -Structure Exposed N/A -Texture (Loretta-wound Skin Appearance) Assessed, Excoriation -Moisture (Loretta-wound Skin Appearance) Assessed -Color (Loretta-wound Skin Appearance) Assessed, Hemosiderin Staining -Temperature (Loretta-wound Skin No Abnormality Appearance) (Pt Warm) -Tenderness on Palpation (Loretta-wound No Skin Appearance) -Ulcer Cleansing Soap and Water -Foul Odor after Cleansing No -Anesthetic Used 5% Lidocaine Gel WC - Nurse 3 - General Ulcer D/C NN Start: 10/07/21 10:08 Freq: Status: Active Protocol: Activity Type Activity Date Activity User E-Sign Co-Sign Detail Recorded Client Recorded Date Recorded By Document 10/07/21 11:16 DANIEL [id number] 10/07/21 11:17 DANIEL 10/07/21 11:16 Wound Care Nurse 3 -Ulcer Cleansing Rinsed/ Irrigated with Saline -Primary Dressing Applied Promogran Brinda Matter -Primary Dressing Covered/Secured with Dry Gauze,Dry Gauze & Roll Gauze,Secured with Tape -Promogran Brinda Matter 1 Pain Scale: 0-10 Numeric Is Patient Pain Free? Yes WC - Visit Discharge Discharge Condition Stable Ambulatory Status Ambulatory Transportation Private Auto Accompanied by Assessment/Plan Assessment/Plan (1) Non-pressure chronic ulcer of left calf with fat layer exposed: CODE(S): L97.222 - Non-pressure chronic ulcer of left calf with fat layer exposed (2) Venous insufficiency (chronic) (peripheral): CODE(S): I87.2 - Venous insufficiency (chronic) (peripheral) (3) Bilateral edema of lower extremity: CODE(S): R60.0 - Localized edema PLAN: This is a 76-year-old male who presents to the wound care center for a medial left lower extremity wound secondary to chronic venous insufficiency. He states that he bumped his left leg and had developed a small raised area that weeps some fluid and crusted over with a yellow scab. He states the scab comes off when washing but returns again. He states that he only wears compression stockings every other day and cites difficulty getting them on. He has previously tried zipper stockings and also cites difficulty with these. He is accompanied by his who also states she has arthritis in her hands and cannot help her get the stockings on. Recent labs from 08/18/2021 in which he had a hemoglobin A1c of 5.8%. He denies being diabetic. He has palpable pedal pulses DP and PT bilaterally. Right lower extremity site of rubor demonstrates no open wounds and will continue to be monitored for any changes. I discussed with his chronic venous insufficiency a compression garment will be duron to reducing edema and allowing the wound sites to heal. Patient and voiced understanding of this. Left lower extremity medial ulceration site demonstrates a mixed fibrotic granular base and no localized signs of infection. Left lower extremity medial ulceration site was sharply debrided with a 3 mm curette removing fibrous, devitalized subcutaneous, biofilm, slough. Brinda, hydrogel and a dry sterile dressing applied to the site to be changed daily. I discussed with the patient and his that he needs to be compliant and continued use of compression stockings daily and elevating both legs when at rest as this is essential for healing. Given his difficulty in being able to get the compression stockings onto his leg, he is to begin CircAid compression wraps with Velcro tabs to be worn daily to both lower extremities. He states that he has not received any CircAid compression wraps and is still using Tubigrip. His ulceration is demonstrating good progression in healing granulating from within. Site measures 1.7 cm x 2.0 cm x 0.2 cm. I feel the change in ulcerative size this week compared to last week is due in part of continued lower extremity swelling secondary to his chronic venous insufficiency. I am seeking approval for advanced wound care product, epi fix graft, to be applied at next visit. Patient and informed me today that they are both [employer]es and would need to ensure the graft does not contain any blood products or substances that go against their confucianist believes. I discussed with them that if they do not feel comfortable with any types of advanced wound care products that I will respect their decision. I also discussed with them without advanced wound care products that healing may continue to progress at a slower rate. I discussed proper diet control and exercise to prevent onset of diabetes mellitus type 2, patient states that he will try his best. I discussed continued exercise as this will also aid in venous return, aid in weight loss, and help prevent onset of type 2 diabetes mellitus. I reviewed and discussed his case today. Debridement was performed today as noted in the clinical panel to all of the ulcer sites. The following work up and care recommendations were made: Dressing: Brinda, hydrogel and dry sterile dressing Wash: Soap and water Tissue growth optimization: Brinda and hydrogel Offload: CircAid compression dressing Vascular: Palpable pedal pulses DP and PT Edema: Patient to wear CircAid compression, elevate lower extremities at times of rest, dorsiflex and plantarflex the foot to aid in venous return by the calf muscle Infection: No localized signs of infection Pain: Patient may take [id number] Tylenol for discomfort Host factors: Chronic venous insufficiency and edema I answered all the patient's questions. To return to the wound healing center in 1 week or call sooner if the patient has any questions or concerns. Note: [employer] speech recognition processor inspector software was used to create portions of this document. Sound-alike and misspelled words, as well as other processor inspector errors may be contained in the documentation.
[2021-10-14 10:47] VITALS: BP 157/70; PULSE 63; RESP 16; TEMP 35.8; BMI 35.6
--- NOTE | 2021-10-14 12:39 | PN.PCM_ITS ---
History of Present Illness Date of Service: 10/14/21 Chief Complaint: Left lower extremity wound History of Wound: This is a 76-year-old male who presents to the wound care center for a left lower extremity wound that has not healed complicated by chronic venous insufficiency. Patient is accompanied by his and states that he wears compression stockings every other day and not daily. He denies being a diabetic and states that his recent hemoglobin A1c was 5.8%. He states that he bumped his left lower leg and noticed a small raised area that was open and weeping. He states that this scabbed over which is easily removed during washing but rescabs over. He denies any nausea, vomiting, fever, chills, shortness of breath, or other constitutional symptoms. Subjective Subjective This is a 76-year-old male who presents to the wound care center for follow-up of his left lower extremity ulceration secondary to chronic venous insufficiency. He denies any constitutional symptoms today. His states that they have been continuing to change the dressings daily to his wound site. They deny any further complaints today. Objective Data Objective Data Vital Signs: Vital Signs Temp Pulse Resp BP 96.4 F L 63 16 157/70 H 10/14/21 10:47 10/14/21 10:47 10/14/21 10:47 10/14/21 10:47 Weight: 112.491 kg Body Mass Index (BMI) 35.6 Physical Exam Const alert, oriented x3 and no apparent distress General Appearance: cooperative and comfortable HEENT normocephalic Eyes General Eye: normal appearance of both eyes Neck General: normal visual inspection Lymph Lymphatic: no lymphadenopathy noted and no lymphedema noted Chest inspection of chest normal Resp normal respiratory effort Cardio regular rate and regular rhythm Extremity normal capillary refill and no calf tenderness Skin no rashes or lesions noted and skin turgor normal Skin Narrative: Left medial lower extremity wound with dried yellow crusted covering secondary to chronic venous insufficiency. Surrounding skin is reddish ?purple with hemosiderin stained deposition about the left lower extremity extending distally to the ankle. Right lower extremity demonstrates localized area of rubor without breakdown of skin or margins consistent with chronic venous insufficiency. No localized signs of infection. General Skin Exam: venous stasis and dermatitis Wound Narrative: Left lower extremity ulceration with dried yellow crusting covering secondary to chronic venous insufficiency with no localized signs of infection. Surrounding skin is reddish-purple with hemosiderin stained deposition about the left lower extremity extending distally to the ankle. Neuro oriented x3 and moves all extremities Motor Exam: strength 5/5 throughout and clonus absent Debridement Note Debridement Note Wound debrided: Left medial leg Laterality: Left Wound Grade/Stage: Flores stage I Type of Debridement: Excisional debridement Anesthesia Used: 4% Lidocaine Solution Depth: Down to and including healthy tissue and in the subcutaneous layer Percentage of wound debrided: 100 Instrument Used: 3mm curette Tissue Removed: Fibrous, devitalized subcutaneous, biofilm, slough Severity: Fat Layer Exposed Amount of bleeding with debridement: Mild Bleeding Controlled with: Compression and gauze Patient tolerated procedure: Patient tolerated procedure well Post-Debridement Measurements and Additional Note: Post-Debridement Measurements/Treatment - Nurse 1 - General Ulcer Assessment Start: 10/07/21 10:08 Freq: Status: Active Protocol: [email or web address] Activity Type Activity Date Activity User E-Sign Co-Sign Detail Recorded Client Recorded Date Recorded By Document 10/07/21 10:08 PR [id number] 10/07/21 10:12 AK Document 10/14/21 10:47 ML [id number] 10/14/21 10:50 ML 10/07/21 10/14/21 10:08 10:47 - Today's Visit Information Type of service Follow-up Visit Follow-up Visit (Physician/NECK BAND OPERATOR (Physician/NECK BAND OPERATOR ) ) Arrival Mode Ambulatory Ambulatory Transfer Assistance None Patient Identification Verified (Name & Yes Yes ) Patient Requires Transmission-Based No No Precautions Safety Precautions NA NA Height and Weight Body Mass Index (BMI) 35.6 35.6 BMI Classification Obese Obese Vital Signs Temperature (97.8 F-99.1 F) 96.2 F L 96.4 F L Temperature Source Temporal Temporal Pulse Rate (60-100) 66 63 Pulse Location Monitor Monitor Respiratory Rate (12-18) 16 Respiratory rate source Observation Blood Pressure (90/60-120/80) 158/66 H 157/70 H Blood Pressure Mean (mm Hg) 96 99 Source Monitor Monitor Position Sitting Blood Pressure Location Right Arm History Since Last Visit- (Skip if this is Patient's initial visit) Have you changed medications since your No No last visit? Any new allergies or adverse reactions No No Had a fall/change in ADL's that may No No increase risk of falls Signs or symptoms of abuse and/or No No neglect since last visit Have you been in the hospital since your No No last visit? Has dressing in place as prescribed Yes Yes Has compression in place as prescribed Yes N/A Has offloadiing in place as prescribed N/A N/A Experienced any changes in pain level or No No management Left Footwear Regular Shoe Regular Shoe Right Footwear Regular Shoe Regular Shoe Pain Scale: 0-10 Numeric Is Patient Pain Free? Yes Yes WC - Nurse 1 - General Ulcer Measurement Start: 10/07/21 10:08 Freq: Status: Active Protocol: Activity Type Activity Date Activity User E-Sign Co-Sign Detail Recorded Client Recorded Date Recorded By Document 10/07/21 10:08 AK [id number] 10/07/21 10:12 AK Document 10/14/21 10:47 ML [id number] 10/14/21 10:50 ML 10/07/21 10/14/21 10:08 10:47 Wound Center Nurse 1 #1 Left Medial LE -Combined with other wound No -Current Size (cm) - Length 1.4 2 -Current Size (cm) - Width 1 1.8 -Current Size (cm) - Depth 0.2 0.1 -Total Square Cm 1.4 3.6 -Photo Taken No -Tunneling No -Undermining/Tunneling No -Circular Undermining No -Change in Wound Grade/Stage No -Exudate Amt Medium Medium -Exudate Type Serosanguineous Serosanguineous -Wound Margin Distinct, Distinct, Outline Outline Attached Attached -Granulation Amt Medium (34-66%) Medium (34-66%) -Granulation Quality Hyper- granulation,Red -Slough/Fibrin No Yes -Necrosis Amt Small (1-33%) Medium (34-66%) -Necrotic Tissue Type Adherent Slough Adherent Slough -Structure Exposed N/A -Texture (Loretta-wound Skin Appearance) Assessed, Assessed Excoriation -Moisture (Loretta-wound Skin Appearance) Assessed Assessed -Color (Loretta-wound Skin Appearance) Assessed, Assessed Hemosiderin Staining -Temperature (Loretta-wound Skin No Abnormality No Abnormality Appearance) (Pt Warm) (Pt Warm) -Tenderness on Palpation (Loretta-wound No Yes Skin Appearance) -Ulcer Cleansing Soap and Water Rinsed/ Irrigated with Saline -Foul Odor after Cleansing No No -Anesthetic Used 5% Lidocaine 5% Lidocaine Gel Gel Left Calf (cm) 36.5 Left Ankle (cm) 27 WC - Nurse 2 - General Ulcer CM Notes Start: 10/07/21 10:08 Freq: Status: Active Protocol: Activity Type Activity Date Activity User E-Sign Co-Sign Detail Recorded Client Recorded Date Recorded By Document 10/07/21 12:21 PL [id number] 10/07/21 12:22 PL 10/07/21 12:21 Wound Center Nurse 2 #1 Left Medial LE -Time 10:45 -Correct Patient Yes -Correct Side, Site, Position Yes -Correct Procedure Yes -Procedure Performed Yes -Type of Procedure Debridement -Clinical Debridement Subcutaneous -Tissue Removed Subcutaneous -Post Debridement (cm) - Length 2 -Post Debridement (cm) - Width 1.0 -Post Debridement (cm) - Depth 0.1 -Total Square (Post) (cm) 2.0 -Area of Debridement (cm) - Length 2.0 -Area of Debridement (cm) - Width 1.0 -Total Square (Area) (cm) 2.00 -Tunneling No -Undermining/Tunneling No -Circular Undermining No -Wound/Ulcer Outcome Not Healed -Ulcer Cleansing Rinsed/ Irrigated with Saline -Foul Odor after Cleansing No -Bioengineered Tissue No -Bleeding Controlled with Pressure -Treatment Response Procedure Tolerated Well -Debridement - Subq, 1st 20sq cm Yes Pain Scale: 0-10 Numeric Is Patient Pain Free? Yes - Nurse 3 - General Ulcer D/C NN Start: 10/07/21 10:08 Freq: Status: Active Protocol: Activity Type Activity Date Activity User E-Sign Co-Sign Detail Recorded Client Recorded Date Recorded By Document 10/07/21 11:16 KR [id number] 10/07/21 11:17 KR Document 10/14/21 11:29 ML [id number] 10/14/21 11:30 ML 10/07/21 10/14/21 11:16 11:29 Wound Care Nurse 3 #1 Left Medial LE -Ulcer Cleansing Rinsed/ Rinsed/ Irrigated with Irrigated with Saline Saline -Primary Dressing Applied Promogran C Hydrogel ($), Brinda Matter Promogran Brinda Matter -Primary Dressing Covered/Secured with Dry Gauze,Dry Dry Gauze & Gauze & Roll Roll Gauze, Gauze,Secured Secured with with Tape Tape -Promogran Brinda Matter 1 1 Right -Tubular Bandage Double Layer -Size of Tubigrip Used Size E -Size E ($) 2 Pain Scale: 0-10 Numeric Is Patient Pain Free? Yes Yes WC - Visit Discharge Discharge Condition Stable Ambulatory Status Ambulatory Transportation Private Auto Accompanied by Assessment/Plan Assessment/Plan (1) Non-pressure chronic ulcer of left calf with fat layer exposed: CODE(S): L97.222 - Non-pressure chronic ulcer of left calf with fat layer exposed (2) Venous insufficiency (chronic) (peripheral): CODE(S): I87.2 - Venous insufficiency (chronic) (peripheral) (3) Bilateral edema of lower extremity: CODE(S): R60.0 - Localized edema PLAN: This is a 76-year-old male who presents to the wound care center for a medial left lower extremity wound secondary to chronic venous insufficiency. He states that he bumped his left leg and had developed a small raised area that weeps some fluid and crusted over with a yellow scab. He state s the scab comes off when washing but returns again. He states that he only wears compression stockings every other day and cites difficulty getting them on. He has previously tried zipper stockings and also cites difficulty with these. He is accompanied by his who also states she has arthritis in her hands and cannot help her get the stockings on. Recent labs from 08/18/2021 in which he had a hemoglobin A1c of 5.8%. He denies being diabetic. He has palpable pedal pulses DP and PT bilaterally. Right lower extremity site of rubor demonstrates no open wounds and will continue to be monitored for any changes. I discussed with his chronic venous insufficiency continued use of a compression garment will be duron to reducing edema and allowing the wound sites to heal. Patient and voiced understanding of this. Left lower extremity medial ulceration site demonstrates no localized signs of infection. Ulceration site was sharply debrided with a 3 mm curette removing fibrous, devitalized subcutaneous, biofilm, slough. Brinda, hydrogel and a dry sterile dressing applied to the site to be changed daily. I discussed with the patient and his that he needs to be compliant and continued use of compression stockings daily and elevating both legs when at rest as this is essential for healing. Given his difficulty in being able to get the compression stockings onto his leg, he is to begin CircAid compression wraps with Velcro tabs to be worn daily to both lower extremities. He states that he has not received any CircAid compression wraps and is still using Tubigrip. His ulceration is demonstrating good progression in healing granulating from within. Site measures 2.0 cm x 1.8 cm x 0.1 cm. He has been approved for advanced wound care product, epi fix. Patient and his would like to wait until next week to inquire with their insurance company if they would have to pay for any uncovered portions of the graft. Patient and are both [employer]. They will be discussing the grafting product with the enrollment representative to ensure the graft does not contain any blood products or substances that go against their evangelical believes. I discussed with them that if they do not feel comfortable with any types of advanced wound care products that I will respect their decision. I also discussed with them without advanced wound care products that healing may continue to progress at a slower rate. They voiced understanding of this. I discussed proper diet control and exercise to prevent onset of diabetes mellitus type 2, patient states that he will try his best. I discussed continued exercise as this will also aid in venous return, aid in weight loss, and help prevent onset of type 2 diabetes mellitus. I reviewed and discussed his case today. Debridement was performed today as noted in the clinical panel to all of the ulcer sites. The following work up and care recommendations were made: Dressing: Brinda, hydrogel and dry sterile dressing Wash: Soap and water Tissue growth optimization: Brinda and hydrogel Offload: CircAid compression dressing Vascular: Palpable pedal pulses DP and PT Edema: Patient to wear CircAid compression, elevate lower extremities at times of rest, dorsiflex and plantarflex the foot to aid in venous return by the calf muscle Infection: No localized signs of infection Pain: Patient may take [id number] Tylenol for discomfort Host factors: Chronic venous insufficiency and edema I answered all the patient's questions. To return to the wound healing center in 1 week or call sooner if the patient has any questions or concerns. Note: [employer] speech recognition staff mine warfare officer software was used to create portions of this document. Sound-alike and misspelled words, as well as other staff mine warfare officer errors may be contained in the documentation.
[2021-10-21 09:35] VITALS: BP 172/80; PULSE 61; TEMP 36.6; BMI 35.6
--- NOTE | 2021-10-21 11:52 | PCM.WC.PN ---
History of Present Illness Date of Service: 10/21/21 Chief Complaint: Left lower extremity wound History of Wound: This is a 76-year-old male who presents to the wound care center for a left lower extremity wound that has not healed complicated by chronic venous insufficiency. Patient is accompanied by his and states that he wears compression stockings every other day and not daily. He denies being a diabetic and states that his recent hemoglobin A1c was 5.8%. He states that he bumped his left lower leg and noticed a small raised area that was open and weeping. He states that this scabbed over which is easily removed during washing but rescabs over. He denies any nausea, vomiting, fever, chills, shortness of breath, or other constitutional symptoms. Subjective Subjective This is a 76-year-old male who presents to the wound care center for follow-up of his left lower extremity ulceration secondary to chronic venous insufficiency. He denies any constitutional symptoms today. His states that she has been continuing to change the dressings daily to his wound site. They would like to discuss the use of the graft further today. They deny any further complaints today. Objective Data Objective Data Vital Signs: Vital Signs Temp Pulse Resp BP 97.9 F 61 16 172/80 H 10/21/21 09:35 10/21/21 09:35 10/14/21 10:47 10/21/21 09:35 Weight: 112.491 kg Body Mass Index (BMI) 35.6 Physical Exam Const alert, oriented x3 and no apparent distress General Appearance: cooperative and comfortable HEENT normocephalic Eyes General Eye: normal appearance of both eyes Neck General: normal visual inspection Lymph Lymphatic: no lymphadenopathy noted and no lymphedema noted Chest inspection of chest normal Resp normal respiratory effort Cardio regular rate and regular rhythm Extremity normal capillary refill and no calf tenderness Skin no rashes or lesions noted and skin turgor normal Skin Narrative: Left medial lower extremity wound with dried yellow crusted covering secondary to chronic venous insufficiency. Surrounding skin is reddish?purple with hemosiderin stained deposition about the left lower extremity extending distally to the ankle. Right lower extremity demonstrates localized area of rubor without breakdown of skin or margins consistent with chronic venous insufficiency. No localized signs of infection. General Skin Exam: venous stasis and dermatitis Wound Narrative: Left lower extremity ulceration with dried yellow crusting covering secondary to chronic venous insufficiency with no localized signs of infection. Surrounding skin is reddish-purple with hemosiderin stained deposition about the left lower extremity extending distally to the ankle. Neuro oriented x3 and moves all extremities Motor Exam: strength 5/5 throughout and clonus absent Debridement Note Debridement Note Wound debrided: Left lower extremity Laterality: Left Wound Grade/Stage: Flores stage I Type of Debridement: Excisional debridement Anesthesia Used: 4% Lidocaine Solution Depth: Down to and including healthy tissue and in the subcutaneous layer Percentage of wound debrided: 100 Instrument Used: 3mm curette Tissue Removed: Fibrous, devitalized subcutaneous, biofilm, slough Severity: Fat Layer Exposed Amount of bleeding with debridement: Mild Bleeding Controlled with: Compression and gauze Patient tolerated procedure: Patient tolerated procedure well Post-Debridement Measurements and Additional Note: Post-Debridement Measurements/Treatment - Nurse 1 - General Ulcer Assessment Start: 10/07/21 10:08 Freq: Status: Active Protocol: [facility] Activity Type Activity Date Activity User E-Sign Co-Sign Detail Recorded Client Recorded Date Recorded By Document 10/07/21 10:08 NC [id number] 10/07/21 10:12 AK Document 10/14/21 10:47 ML [id number] 10/14/21 10:50 ML Document 10/21/21 09:35 NC [id number] 10/21/21 09:38 AK 10/07/21 10/14/21 10/21/21 10:08 10:47 09:35 - Today's Visit Information Type of service Follow-up Visit Follow-up Visit Follow-up Visit (Physician/SKEIN WASHER (Physician/SKEIN WASHER (Physician/SKEIN WASHER ) ) ) Arrival Mode Ambulatory Ambulatory Ambulatory Transfer Assistance None Patient Identification Verified (Name & Yes Yes No ) Patient Requires Transmission-Based No No No Precautions Safety Precautions NA NA NA Height and Weight Body Mass Index (BMI) 35.6 35.6 35.6 BMI Classification Obese Obese Obese Vital Signs Temperature (97.8 F-99.1 F) 96.2 F L 96.4 F L 97.9 F Temperature Source Temporal Temporal Temporal Pulse Rate (60-100) 66 63 61 Pulse Location Monitor Monitor Monitor Respiratory Rate (12-18) 16 Respiratory rate source Observation Blood Pressure (90/60-120/80) 158/66 H 157/70 H 172/80 H Blood Pressure Mean (mm Hg) 96 99 110 Source Monitor Monitor Monitor Position Sitting Blood Pressure Location Right Arm History Since Last Visit- (Skip if this is Patient's initial visit) Have you changed medications since your No No No last visit? Any new allergies or adverse reactions No No No Had a fall/change in ADL's that may No No No increase risk of falls Signs or symptoms of abuse and/or No No No neglect since last visit Have you been in the hospital since your No No No last visit? Has dressing in place as prescribed Yes Yes Yes Has compression in place as prescribed Yes N/A Yes Has offloadiing in place as prescribed N/A N/A N/A Experienced any changes in pain level or No No No management Left Footwear Regular Shoe Regular Shoe Regular Shoe Right Footwear Regular Shoe Regular Shoe Regular Shoe Pain Scale: 0-10 Numeric Is Patient Pain Free? Yes Yes Yes WC - Nurse 1 - General Ulcer Measurement Start: 10/07/21 10:08 Freq: Status: Active Protocol: Activity Type Activity Date Activity User E-Sign Co-Sign Detail Recorded Client Recorded Date Recorded By Document 10/07/21 10:08 AK [id number] 10/07/21 10:12 AK Document 10/14/21 10:47 ML [id number] 10/14/21 10:50 ML Document 10/21/21 09:35 NC [id number] 10/21/21 09:38 AK 10/07/21 10/14/21 10/21/21 10:08 10:47 09:35 Wound Center Nurse 1 #1 Left Medial LE -Combined with other wound No No -Current Size (cm) - Length 1.4 2 0.7 -Current Size (cm) - Width 1 1.8 0.5 -Current Size (cm) - Depth 0.2 0.1 0.1 -Total Square Cm 1.4 3.6 0.35 -Photo Taken No No -Tunneling No No -Undermining/Tunneling No No -Circular Undermining No No -Change in Wound Grade/Stage No No -Exudate Amt Medium Medium Medium -Exudate Type Serosanguineous Serosanguineous Serosanguineous -Wound Margin Distinct, Distinct, Distinct, Outline Outline Outline Attached Attached Attached -Granulation Amt Medium (34-66%) Medium (34-66%) Medium (34-66%) -Granulation Quality Hyper- [place] granulation,Red -Slough/Fibrin No Yes Yes -Necrosis Amt Small (1-33%) Medium (34-66%) Medium (34-66%) -Necrotic Tissue Type Adherent Slough Adherent Slough Adherent Slough -Structure Exposed N/A N/A -Texture (Loretta-wound Skin Appearance) Assessed, Assessed Assessed, Excoriation Friable -Moisture (Loretta-wound Skin Appearance) Assessed Assessed Assessed, Maceration -Color (Loretta-wound Skin Appearance) Assessed, Assessed No Abnormality, Hemosiderin Assessed Staining -Temperature (Loretta-wound Skin No Abnormality No Abnormality No Abnormality Appearance) (Pt Warm) (Pt Warm) (Pt Warm) -Tenderness on Palpation (Loretta-wound No Yes No Skin Appearance) -Ulcer Cleansing Soap and Water Rinsed/ Rinsed/ Irrigated with Irrigated with Saline Saline -Foul Odor after Cleansing No No No -Anesthetic Used 5% Lidocaine 5% Lidocaine 4% Lidocaine Gel Gel Solution Left Calf (cm) 36.5 Left Ankle (cm) 27 WC - Nurse 2 - General Ulcer CM Notes Start: 10/07/21 10:08 Freq: Status: Active Protocol: Activity Type Activity Date Activity User E-Sign Co-Sign Detail Recorded Client Recorded Date Recorded By Document 10/07/21 12:21 PL [id number] 10/07/21 12:22 PL Document 10/14/21 14:31 PL [id number] 10/14/21 14:33 PL 10/07/21 10/14/21 12:21 14:31 Wound Center Nurse 2 #1 Left Medial LE -Time 10:45 11:05 -Correct Patient Yes Yes -Correct Side, Site, Position Yes Yes -Correct Procedure Yes Yes -Procedure Performed Yes Yes -Type of Procedure Debridement Debridement -Clinical Debridement Subcutaneous Subcutaneous -Tissue Removed Subcutaneous Subcutaneous -Post Debridement (cm) - Length 2 2.0 -Post Debridement (cm) - Width 1.0 1.8 -Post Debridement (cm) - Depth 0.1 0.1 -Total Square (Post) (cm) 2.0 3.60 -Area of Debridement (cm) - Length 2.0 2.0 -Area of Debridement (cm) - Width 1.0 1.8 -Total Square (Area) (cm) 2.00 3.60 -Tunneling No No -Undermining/Tunneling No No -Circular Undermining No No -Wound/Ulcer Outcome Not Healed Not Healed -Ulcer Cleansing Rinsed/ Rinsed/ Irrigated with Irrigated with Saline Saline -Foul Odor after Cleansing No No -Bioengineered Tissue No No -Bleeding Controlled with Pressure Pressure -Treatment Response Procedure Procedure Tolerated Well Tolerated Well -Debridement - Subq, 1st 20sq cm Yes Yes Pain Scale: 0-10 Numeric Is Patient Pain Free? Yes Yes - Nurse 3 - General Ulcer D/C NN Start: 10/07/21 10:08 Freq: Status: Active Protocol: Activity Type Activity Date Activity User E-Sign Co-Sign Detail Recorded Client Recorded Date Recorded By Document 10/07/21 11:16 KR [id number] 10/07/21 11:17 KR Document 10/14/21 11:29 ML [id number] 10/14/21 11:30 ML Document 10/21/21 10:25 KR [id number] 10/21/21 10:26 KR 10/07/21 10/14/21 10/21/21 11:16 11:29 10:25 Wound Care Nurse 3 #1 Left Medial LE -Ulcer Cleansing Rinsed/ Rinsed/ Irrigated with Irrigated with Saline Saline -Primary Dressing Applied Promogran C Hydrogel ($), Optilok 6.5x10 Brinda Matter Promogran Brinda Matter -Primary Dressing Covered/Secured with Dry Gauze,Dry Dry Gauze & Gauze & Roll Roll Gauze, Gauze,Secured Secured with with Tape Tape -Optilok 6.5x10 1 -Promogran Brinda Matter 1 1 Right -Multi-Layered Wrap Application Multi-Layer Comp - Left ($) -Tubular Bandage Double Layer -Size of Tubigrip Used Size E -Size E ($) 2 Pain Scale: 0-10 Numeric Is Patient Pain Free? Yes Yes Yes WC - Visit Discharge Discharge Condition Stable Stable Ambulatory Status Ambulatory Ambulatory Transportation Private Auto Private Auto Accompanied by Assessment/Plan Assessment/Plan (1) Non-pressure chronic ulcer of left calf with fat layer exposed: CODE(S): L97.222 - Non-pressure chronic ulcer of left calf with fat layer exposed (2) Venous insufficiency (chronic) (peripheral): CODE(S): I87.2 - Venous insufficiency (chronic) (peripheral) (3) Bilateral edema of lower extremity: CODE(S): R60.0 - Localized edema PLAN: This is a 76-year-old male who presents to the wound care center for a medial left lower extremity wound secondary to chronic venous insufficiency. He states that he bumped his left leg and had developed a small raised area that weeps some fluid and crusted over with a yellow scab. He states the scab comes off when washing but returns again. He states that he only wears compression stockings every other day and cites difficulty getting them on. He has previously tried zipper stockings and also cites difficulty with these. He is accompanied by his who also states she has arthritis in her hands and cannot help her get the stockings on. Recent labs from 08/18/2021 in which he had a hemoglobin A1c of 5.8%. He denies being diabetic. He has palpable pedal pulses DP and PT bilaterally. Left lower extremity medial ulceration site demonstrates no localized signs of infection. Ulceration site was sharply debrided with a 3 mm curette removing fibrous, devitalized subcutaneous, biofilm, slough. Patient and are both [employer]. They have discussed the graft and are accepting of graft placement today. Epi fix graft applied to the wound bed and dressed with wound veil, Steri-Strips, and a 3M compression wrap. I discussed returning next week to change his outer dressing. He is to leave the dressings clean, dry, and intact to the left lower extremity. I instructed him to utilize a cast bag as he showers to keep the site dry. I discussed with the patient and his that he needs to be compliant and continued use of compression stockings daily and elevating both legs when at rest as this is essential for healing. Given his difficulty in being able to get the compression stockings onto his leg, he is to begin CircAid compression wraps with Velcro tabs to be worn daily to both lower extremities. He states that he has still not received any CircAid compression wraps and has been using Tubigrip. His ulceration is demonstrating good progression in healing granulating from within. Site measures 2.0 cm x 1.8 cm x 0.1 cm postdebridement. We will continue with the epi fix graft placement and continue to monitor his healing progress. I discussed proper diet control and exercise to prevent onset of diabetes mellitus type 2, patient states that he will try his best. I discussed continued exercise as this will also aid in venous return, aid in weight loss, and help prevent onset of type 2 diabetes mellitus. I reviewed and discussed his case today. Debridement was performed today as noted in the clinical panel to all of the ulcer sites. The following work up and care recommendations were made: Dressing: Epi fix graft, wound veil with Steri-Strips, 3M compression dressing Wash: Do not get wet Tissue growth optimization: Epi fix graft Offload: 3M compression dressing Vascular: Palpable pedal pulses DP and PT Edema: 3M compression dressing, elevate lower extremities at times of rest, dorsiflex and plantarflex the foot to aid in venous return by the calf muscle Infection: No localized signs of infection Pain: Patient may take [id number] Tylenol extra strength for discomfort Host factors: Chronic venous insufficiency and edema I answered all the patient's questions. To return to the wound healing center in 1 week or call sooner if the patient has any questions or concerns. Note: [employer] speech recognition aerospace mechanic software was used to create portions of this document. Sound-alike and misspelled words, as well as other aerospace mechanic errors may be contained in the documentation.
[2021-10-26 13:02] VITALS: BP 145/68; PULSE 65; RESP 16; TEMP 35.8; BMI 35.6
[2021-10-28 09:32] VITALS: BP 151/70; PULSE 64; RESP 16; TEMP 35.7; BMI 35.6
--- NOTE | 2021-10-28 09:53 | PN.PCM_ITS ---
History of Present Illness Date of Service: 10/28/21 Chief Complaint: Left lower extremity wound History of Wound: This is a 76-year-old male who presents to the wound care center for a left lower extremity wound that has not healed complicated by chronic venous insufficiency. Patient is accompanied by his and states that he wears compression stockings every other day and not daily. He denies being a diabetic and states that his recent hemoglobin A1c was 5.8%. He states that he bumped his left lower leg and noticed a small raised area that was open and weeping. He states that this scabbed over which is easily removed during washing but rescabs over. He denies any nausea, vomiting, fever, chills, shortness of breath, or other constitutional symptoms. Subjective Subjective This is a 76-year-old male who presents to the wound care center for follow-up of his left lower extremity ulceration secondary to chronic venous insufficiency. He denies any constitutional symptoms today. He states the ulcerative site has been less painful following his first application of the advanced wound care product. He denies any other complaints today. Objective Data Objective Data Vital Signs: Vital Signs Temp Pulse Resp BP 96.2 F L 64 16 151/70 H 10/28/21 09:32 10/28/21 09:32 10/28/21 09:32 10/28/21 09:32 Oxygen Delivery Method Room Air Weight: 112.491 kg Body Mass Index (BMI) 35.6 Physical Exam Const alert, oriented x3 and no apparent distress General Appearance: cooperative and comfortable HEENT normocephalic Eyes General Eye: normal appearance of both eyes Neck General: normal visual inspection Lymph Lymphatic: no lymphadenopathy noted and no lymphedema noted Chest inspection of chest normal Resp normal respiratory effort Cardio regular rate and regular rhythm Extremity normal capillary refill and no calf tenderness Skin no rashes or lesions noted and skin turgor normal Skin Narrative: Left medial lower extremity wound with dried yellow crusted covering secondary to chronic venous insufficiency. Surrounding skin is reddish?purple with hemosiderin stained deposition about the left lower extremity extending distally to the ankle. Right lower extremity demonstrates localized area of rubor without breakdown of skin or margins consistent with chronic venous insufficiency. No localized signs of infection. General Skin Exam: venous stasis and dermatitis Wound Narrative: Left lower extremity ulceration with dried yellow crusting covering secondary to chronic venous insufficiency with no localized signs of infection. Surrounding skin is reddish-purple with hemosiderin stained deposition about the left lower extremity extending distally to the ankle. Neuro oriented x3 and moves all extremities Motor Exam: strength 5/5 throughout and clonus absent Debridement Note Debridement Note Wound debrided: Left lower extremity medial ulceration Laterality: Left Wound Grade/Stage: Flores stage I Type of Debridement: Excisional debridement Anesthesia Used: 4% Lidocaine Solution Depth: Down to and including healthy tissue and in the subcutaneous layer Percentage of wound debrided: 100 Instrument Used: 3mm curette Tissue Removed: Fibrous, devitalized subcutaneous, biofilm, slough Severity: Fat Layer Exposed Amount of bleeding with debridement: Mild Bleeding Controlled with: Compression and gauze Patient tolerated procedure: Patient tolerated procedure well Post-Debridement Measurements and Additional Note: Post-Debridement Measurements/Treatment - Nurse 1 - General Ulcer Assessment Start: 10/07/21 10:08 Freq: Status: Active Protocol: HOMERO.LOWEXT Activity Type Activity Date Activity User E-Sign Co-Sign Detail Recorded Client Recorded Date Recorded By Document 10/07/21 10:08 [place] [id number] 10/07/21 10:12 [place] Document 10/14/21 10:47 ML [id number] 10/14/21 10:50 ML Document 10/21/21 09:35 [place] [id number] 10/21/21 09:38 [place] Document 10/26/21 13:02 [facility] [id number] 10/26/21 13:07 [facility] Document 10/28/21 09:32 [id number] 10/28/21 09:37 JF 10/07/21 10/14/21 10/21/21 10:08 10:47 09:35 - Today's Visit Information Type of service Follow-up Visit Follow-up Visit Follow-up Visit (Physician/SOCK LINING EXAMINER (Physician/SOCK LINING EXAMINER (Physician/SOCK LINING EXAMINER ) ) ) Arrival Mode Ambulatory Ambulatory Ambulatory Transfer Assistance None Accompanied by Patient Identification Verified (Name & Yes Yes No ) Patient Requires Transmission-Based No No No Precautions Safety Precautions NA NA NA Height and Weight Body Mass Index (BMI) 35.6 35.6 35.6 BMI Classification Obese Obese Obese Vital Signs Temperature (97.8 F-99.1 F) 96.2 F L 96.4 F L 97.9 F Temperature Source Temporal Temporal Temporal Pulse Rate (60-100) 66 63 61 Pulse Location Monitor Monitor Monitor Respiratory Rate (12-18) 16 Respiratory rate source Observation Oxygen Delivery Method Blood Pressure (90/60-120/80) 158/66 H 157/70 H 172/80 H Blood Pressure Mean (mm Hg) 96 99 110 Source Monitor Monitor Monitor Position Sitting Blood Pressure Location Right Arm History Since Last Visit- (Skip if this is Patient's initial visit) Have you changed medications since your No No No last visit? Any new allergies or adverse reactions No No No Had a fall/change in ADL's that may No No No increase risk of falls Signs or symptoms of abuse and/or No No No neglect since last visit Have you been in the hospital since your No No No last visit? Has dressing in place as prescribed Yes Yes Yes Has compression in place as prescribed Yes N/A Yes Has offloadiing in place as prescribed N/A N/A N/A Experienced any changes in pain level or No No No management Left Footwear Regular Shoe Regular Shoe Regular Shoe Right Footwear Regular Shoe Regular Shoe Regular Shoe Pain Scale: 0-10 Numeric Is Patient Pain Free? Yes Yes Yes 10/26/21 10/28/21 13:02 09:32 WC - Today's Visit Information Type of service Nurse-only Follow-up Visit Visit (Physician/SOCK LINING EXAMINER ) Arrival Mode Ambulatory Ambulatory Transfer Assistance None Accompanied by Patient Identification Verified (Name & Yes Yes ) Patient Requires Transmission-Based No No Precautions Safety Precautions Height and Weight Body Mass Index (BMI) 35.6 35.6 BMI Classification Obese Obese Vital Signs Temperature (97.8 F-99.1 F) 96.5 F L 96.2 F L Temperature Source Temporal Temporal Pulse Rate (60-100) 65 64 Pulse Location Monitor Monitor Respiratory Rate (12-18) 16 16 Respiratory rate source Observation Observation Oxygen Delivery Method Room Air Blood Pressure (90/60-120/80) 145/68 H 151/70 H Blood Pressure Mean (mm Hg) 93 97 Source Monitor Monitor Position Sitting Semi-Fowlers Blood Pressure Location Left Arm Right Arm History Since Last Visit- (Skip if this is Patient's initial visit) Have you changed medications since your No No last visit? Any new allergies or adverse reactions No No Had a fall/change in ADL's that may No No increase risk of falls Signs or symptoms of abuse and/or No No neglect since last visit Have you been in the hospital since your No No last visit? Has dressing in place as prescribed Yes Yes Has compression in place as prescribed Yes Yes Has offloadiing in place as prescribed N/A N/A Experienced any changes in pain level or No No management Left Footwear Regular Shoe Regular Shoe Right Footwear Regular Shoe Regular Shoe Pain Scale: 0-10 Numeric Is Patient Pain Free? Yes Yes - Nurse 1 - General Ulcer Measurement Start: 10/07/21 10:08 Freq: Status: Active Protocol: Activity Type Activity Date Activity User E-Sign Co-Sign Detail Recorded Client Recorded Date Recorded By Document 10/07/21 10:08 [place] [id number] 10/07/21 10:12 [place] Document 10/14/21 10:47 ML [id number] 10/14/21 10:50 ML Document 10/21/21 09:35 [place] [id number] 10/21/21 09:38 [place] Document 10/26/21 13:02 [facility] [id number] 10/26/21 13:07 [facility] Document 10/28/21 09:32 [id number] 10/28/21 09:37 10/07/21 10/14/21 10/21/21 10:08 10:47 09:35 Wound Center Nurse 1 #1 Left Medial LE -Combined with other wound No No -Current Size (cm) - Length 1.4 2 0.7 -Current Size (cm) - Width 1 1.8 0.5 -Current Size (cm) - Depth 0.2 0.1 0.1 -Total Square Cm 1.4 3.6 0.35 -Photo Taken No No -Epithelialization -Tunneling No No -Undermining/Tunneling No No -Circular Undermining No No -Change in Wound Grade/Stage No No -Exudate Amt Medium Medium Medium -Exudate Type Serosanguineous Serosanguineous Serosanguineous -Wound Margin Distinct, Distinct, Distinct, Outline Outline Outline Attached Attached Attached -Granulation Amt Medium (34-66%) Medium (34-66%) Medium (34-66%) -Granulation Quality Hyper- [place] granulation,Red -Slough/Fibrin No Yes Yes -Necrosis Amt Small (1-33%) Medium (34-66%) Medium (34-66%) -Necrotic Tissue Type Adherent Slough Adherent Slough Adherent Slough -Structure Exposed N/A N/A -Texture (Loretta-wound Skin Appearance) Assessed, Assessed Assessed, Excoriation Friable -Moisture (Loretta-wound Skin Appearance) Assessed Assessed Assessed, Maceration -Color (Loretta-wound Skin Appearance) Assessed, Assessed No Abnormality, Hemosiderin Assessed Staining -Temperature (Loretta-wound Skin No Abnormality No Abnormality No Abnormality Appearance) (Pt Warm) (Pt Warm) (Pt Warm) -Tenderness on Palpation (Loretta-wound No Yes No Skin Appearance) -Ulcer Cleansing Soap and Water Rinsed/ Rinsed/ Irrigated with Irrigated with Saline Saline -Foul Odor after Cleansing No No No -Anesthetic Used 5% Lidocaine 5% Lidocaine 4% Lidocaine Gel Gel Solution Lower Limb Edema Present Left Calf (cm) 36.5 Left Ankle (cm) 27 10/26/21 10/28/21 13:02 09:32 Wound Center Nurse 1 #1 Left Medial LE -Combined with other wound No -Current Size (cm) - Length 0.1 -Current Size (cm) - Width 0.1 -Current Size (cm) - Depth 0.1 -Total Square Cm 0.01 -Photo Taken No -Epithelialization Small 1-33% -Tunneling No -Undermining/Tunneling No -Circular Undermining No -Change in Wound Grade/Stage -Exudate Amt None Present -Exudate Type -Wound Margin Indistinct, Non -Visible -Granulation Amt None Present (0 %) -Granulation Quality -Slough/Fibrin Yes -Necrosis Amt Large (67-100%) -Necrotic Tissue Type Adherent Slough -Structure Exposed N/A -Texture (Loretta-wound Skin Appearance) Assessed, Localized Edema -Moisture (Loretta-wound Skin Appearance) No Abnormality, Dry/Scaly -Color (Loretta-wound Skin Appearance) Assessed, Hemosiderin Staining -Temperature (Loretta-wound Skin No Abnormality Appearance) (Pt Warm) -Tenderness on Palpation (Loretta-wound No Skin Appearance) -Ulcer Cleansing Wound Cleanser -Foul Odor after Cleansing No -Anesthetic Used 4% Lidocaine Solution Lower Limb Edema Present Yes Yes Left Calf (cm) 38 38.7 Left Ankle (cm) 25.5 26.0 WC - Nurse 2 - General Ulcer CM Notes Start: 10/07/21 10:08 Freq: Status: Active Protocol: Activity Type Activity Date Activity User E-Sign Co-Sign Detail Recorded Client Recorded Date Recorded By Document 10/07/21 12:21 PL [id number] 10/07/21 12:22 PL Document 10/14/21 14:31 PL [id number] 10/14/21 14:33 PL Document 10/21/21 13:06 PL [id number] 10/21/21 13:08 PL 10/07/21 10/14/21 10/21/21 12:21 14:31 13:06 Wound Center Nurse 2 #1 Left Medial LE -Time 10:45 11:05 09:50 -Correct Patient Yes Yes Yes -Correct Side, Site, Position Yes Yes Yes -Correct Procedure Yes Yes Yes -Procedure Performed Yes Yes Yes -Type of Procedure Debridement Debridement Debridement -Clinical Debridement Subcutaneous Subcutaneous Subcutaneous -Tissue Removed Subcutaneous Subcutaneous Subcutaneous -Post Debridement (cm) - Length 2 2.0 2.2 -Post Debridement (cm) - Width 1.0 1.8 1.5 -Post Debridement (cm) - Depth 0.1 0.1 0.2 -Total Square (Post) (cm) 2.0 3.60 3.30 -Area of Debridement (cm) - Length 2.0 2.0 2.2 -Area of Debridement (cm) - Width 1.0 1.8 1.5 -Total Square (Area) (cm) 2.00 3.60 3.30 -Tunneling No No No -Undermining/Tunneling No No No -Circular Undermining No No No -Wound/Ulcer Outcome Not Healed Not Healed Not Healed -Ulcer Cleansing Rinsed/ Rinsed/ Rinsed/ Irrigated with Irrigated with Irrigated with Saline Saline Saline -Foul Odor after Cleansing No No No -Bioengineered Tissue No No Yes -Type of Bioengineered Tissue Epifix 18mm Disc -Expiration Date 08/03/26 -Product Lot Number [id number] -Percent Used 100 -Bleeding Controlled with Pressure Pressure Pressure -Treatment Response Procedure Procedure Procedure Tolerated Well Tolerated Well Tolerated Well -Debridement - Subq, 1st 20sq cm Yes Yes No -Apply Skin Sub - 1st 25 sq cm - Legs 1 -Epifix 18mm Disc 3 Pain Scale: 0-10 Numeric Is Patient Pain Free? Yes Yes Yes WC - Nurse 3 - General Ulcer D/C NN Start: 10/07/21 10:08 Freq: Status: Active Protocol: Activity Type Activity Date Activity User E-Sign Co-Sign Detail Recorded Client Recorded Date Recorded By Document 10/07/21 11:16 KR [id number] 10/07/21 11:17 KR Document 10/14/21 11:29 ML [id number] 10/14/21 11:30 ML Document 10/21/21 10:25 KR [id number] 10/21/21 10:26 KR Document 10/26/21 13:02 [facility] [id number] 10/26/21 13:07 BMF 10/07/21 10/14/21 10/21/21 11:16 11:29 10:25 Wound Care Nurse 3 #1 Left Medial LE -Ulcer Cleansing Rinsed/ Rinsed/ Irrigated with Irrigated with Saline Saline -Primary Dressing Applied Promogran C Hydrogel ($), Optilok 6.5x10 Brinda Matter Promogran Brinda Matter -Other Dressing -Primary Dressing Covered/Secured with Dry Gauze,Dry Dry Gauze & Gauze & Roll Roll Gauze, Gauze,Secured Secured with with Tape Tape -Other Covering -Optilok 6.5x10 1 -Optilok 8x12 -Promogran Brinda Matter 1 1 Left -Multi-Layered Wrap Application -Other Right -Multi-Layered Wrap Application Multi-Layer Comp - Left ($) -Tubular Bandage Double Layer -Size of Tubigrip Used Size E -Size E ($) 2 Treatment Response Vital Signs Temperature (97.8 F-99.1 F) Temperature Source Pulse Rate (60-100) Pulse Location Respiratory Rate (12-18) Respiratory rate source Oxygen Delivery Method Blood Pressure (90/60-120/80) Blood Pressure Mean (mm Hg) Source Position Blood Pressure Location Pain Scale: 0-10 Numeric Is Patient Pain Free? Yes Yes Yes - Visit Discharge Discharge Condition Stable Stable Ambulatory Status Ambulatory Ambulatory Transportation Private Auto Private Auto Accompanied by 10/26/21 13:02 Wound Care Nurse 3 #1 Left Medial LE -Ulcer Cleansing -Primary Dressing Applied Optilok 8x12 -Other Dressing epifix intact -Primary Dressing Covered/Secured with -Other Covering drsg applied per ak web project manager -Optilok 6.5x10 -Optilok 8x12 1 -Promogran Brinda Matter Left -Multi-Layered Wrap Application Multi-Layer Comp - Left ($) -Other 3m per ak web project manager Right -Multi-Layered Wrap Application -Tubular Bandage -Size of Tubigrip Used -Size E ($) Treatment Response Procedure Tolerated Well Vital Signs Temperature (97.8 F-99.1 F) 96.5 F L Temperature Source Temporal Pulse Rate (60-100) 65 Pulse Location Monitor Respiratory Rate (12-18) 16 Respiratory rate source Observation Oxygen Delivery Method Room Air Blood Pressure (90/60-120/80) 145/68 H Blood Pressure Mean (mm Hg) 93 Source Monitor Position Sitting Blood Pressure Location Left Arm Pain Scale: 0-10 Numeric Is Patient Pain Free? Yes WC - Visit Discharge Discharge Condition Stable Ambulatory Status Ambulatory Transportation Private Auto Accompanied by Assessment/Plan Assessment/Plan (1) Non-pressure chronic ulcer of left calf with fat layer exposed: CODE(S): L97.222 - Non-pressure chronic ulcer of left calf with fat layer exposed (2) Venous insufficiency (chronic) (peripheral): CODE(S): I87.2 - Venous insufficiency (chronic) (peripheral) (3) Bilateral edema of lower extremity: CODE(S): R60.0 - Localized edema PLAN: This is a 76-year-old male who presents to the wound care center for a medial left lower extremity wound secondary to chronic venous insufficie ncy. He states that he bumped his left leg and had developed a small raised area that weeps some fluid and crusted over with a yellow scab. He states the scab comes off when washing but returns again. He states that he only wears compression stockings every other day and cites difficulty getting them on. He has previously tried zipper stockings and also cites difficulty with these. He is accompanied by his who also states she has arthritis in her hands and cannot help her get the stockings on. Recent labs from 08/18/2021 in which he had a hemoglobin A1c of 5.8%. He denies being diabetic. He has palpable pedal pulses DP and PT bilaterally. Left lower extremity medial ulceration site demonstrates no localized signs of infection. Ulceration site was sharply debrided as noted in clinical panel above. Patient and are both [employer]es. They have discussed the graft and are accepting of continued graft placement today. Epi fix graft (application #2) applied to the wound bed and dressed with wound veil, Steri-Strips, and a 3M compression wrap. He will return next week to change his outer dressing. He is to leave the dressings clean, dry, and intact to the left lower extremity. I instructed him to utilize a cast bag as he showers to keep the site dry. His ulceration is demonstrating good progression in healing granulating from within. Site measures 2.0 cm x 1.5 cm x 0.1 cm postdebridement. We will continue with the epi fix graft placement and continue to monitor his healing progress. I discussed proper diet control and exercise to prevent onset of diabetes mellitus type 2, patient states that he will try his best. I discussed continued exercise as this will also aid in venous return, aid in weight loss, and help prevent onset of type 2 diabetes mellitus. I reviewed and discussed his case today. Debridement was performed today as noted in the clinical panel to all of the ulcer sites. The following work up and care recommendations were made: Dressing: Epi fix graft, wound veil with Steri-Strips, 3M compression dressing Wash: Do not get wet Tissue growth optimization: Epi fix graft Offload: 3M compression dressing Vascular: Palpable pedal pulses DP and PT Edema: 3M compression dressing, elevate lower extremities at times of rest, dorsiflex and plantarflex the foot to aid in venous return by the calf muscle Infection: No localized signs of infection Pain: Patient may take [id number] Tylenol extra strength for discomfort Host factors: Chronic venous insufficiency and edema I answered all the patient's questions. To return to the wound healing center in 1 week or call sooner if the patient has any questions or concerns. Note: Say-Hey speech recognition jd edwards consultant software was used to create portions of this document. Sound-alike and misspelled words, as well as other jd edwards consultant errors may be contained in the documentation.
== END 2021-10-30 23:59 | disposition home or self-care (01) ==
LOC: WC 09:30
PROVIDERS: PCP Family Medicine; Visit Provider Student in an Organized Health Care Education/Training Program
DX: I87.2 Venous insufficiency (chronic) (peripheral) (principal); L97.222 Non-pressure chronic ulcer of left calf with fat layer exposed; R60.0 Localized edema; Z79.899 Other long term (current) drug therapy
CPT/HCPCS: 11042; 15271; 29581; Q4186

== ENCOUNTER 2021-11-25 09:30 | Outpatient (RCR) | payer MEDICARE, OTHER, SELFPAY ==
[2021-10-31 00:15] VITALS: BP 151/70; PULSE 64; RESP 16; TEMP 35.7; BMI 35.6
[2021-11-02 13:17] VITALS: BP 142/70; PULSE 69; RESP 18; TEMP 36.5; BMI 35.6
[2021-11-04 09:56] VITALS: BP 123/71; PULSE 61; RESP 16; TEMP 36.1; BMI 35.6
--- NOTE | 2021-11-04 11:15 | PCM.WC.PN ---
History of Present Illness Date of Service: 11/04/21 Chief Complaint: Left lower extremity wound History of Wound: This is a 76-year-old male who presents to the wound care center for a left lower extremity wound that has not healed complicated by chronic venous insufficiency. Patient is accompanied by his and states that he wears compression stockings every other day and not daily. He denies being a diabetic and states that his recent hemoglobin A1c was 5.8%. He states that he bumped his left lower leg and noticed a small raised area that was open and weeping. He states that this scabbed over which is easily removed during washing but rescabs over. He denies any nausea, vomiting, fever, chills, shortness of breath, or other constitutional symptoms. Subjective Subjective This 76-year-old male presents to the wound care center for follow-up of a left lower extremity ulceration secondary to chronic venous insufficiency. He denies any constitutional symptoms today. He states the ulcerative site has no pain and feels it is improving. He denies any other complaints today. Objective Data Objective Data Vital Signs: Vital Signs Temp Pulse Resp BP 97 F L 61 16 123/71 H 11/04/21 09:56 11/04/21 09:56 11/04/21 09:56 11/04/21 09:56 Oxygen Delivery Method Room Air Weight: 112.491 kg Body Mass Index (BMI) 35.6 Physical Exam Const alert, oriented x3 and no apparent distress General Appearance: cooperative and comfortable HEENT normocephalic Eyes General Eye: normal appearance of both eyes Neck General: normal visual inspection Lymph Lymphatic: no lymphadenopathy noted and no lymphedema noted Chest inspection of chest normal Resp normal respiratory effort Cardio regular rate and regular rhythm Extremity normal capillary refill, no calf tenderness and no pedal edema Peripheral Pulses: Yes posterior tibial pulses present and dorsalis pedis pulses present Skin no rashes or lesions noted, skin turgor normal and no jaundice Skin Narrative: Left medial lower extremity wound with a dried yellow scab secondary to chronic venous insufficiency. Surrounding skin is reddish-purple with hemosiderin stained deposition to the left lower extremity extending distally to the ankle. Right lower extremity demonstrates local area of rubor without breakdown of the skin margins consistent with a chronic venous insufficiency. No signs of infection. General Skin Exam: venous stasis and dermatitis Wound Narrative: Left lower extremity ulceration with scab covering secondary to chronic venous insufficiency with no signs of infection. Surrounding skin is a reddish-purple with hemosiderin stained deposition about the left lower extremity extending distally to the ankle. Neuro oriented x3 and moves all extremities Motor Exam: strength 5/5 throughout Debridement Note Debridement Note Wound debrided: Left medial leg Laterality: Left Wound Grade/Stage: Flores stage I Type of Debridement: Excisional debridement Anesthesia Used: 4% Lidocaine Solution Depth: Down to and including healthy tissue and in the subcutaneous layer Percentage of wound debrided: 100 Instrument Used: 3mm curette Tissue Removed: Fibrous, devitalized subcutaneous, biofilm, slough Severity: Fat Layer Exposed Amount of bleeding with debridement: Mild Bleeding Controlled with: Compression and gauze Patient tolerated procedure: Patient tolerated procedure well Post-Debridement Measurements and Additional Note: Post-Debridement Measurements/Treatment - Nurse 1 - General Ulcer Assessment Start: 11/02/21 13:17 Freq: Status: Active Protocol: [email or web address] Activity Type Activity Date Activity User E-Sign Co-Sign Detail Recorded Client Recorded Date Recorded By Document 11/02/21 13:17 DL [id number] 11/02/21 13:28 DL Document 11/04/21 09:56 [facility] [id number] 11/04/21 10:06 [facility] 11/02/21 11/04/21 13:17 09:56 - Today's Visit Information Type of service Nurse-only 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 ) Arrival Mode Ambulatory Ambulatory Transfer Assistance None None Accompanied by Patient Identification Verified (Name & Yes Yes ) Patient Requires Transmission-Based No Precautions Finger Stick Blood Sugar(mg/dl) (if doesnt check indicated): Blood Sugar Stated by Patient Height and Weight Body Mass Index (BMI) 35.6 35.6 BMI Classification Obese Obese Vital Signs Temperature (97.8 F-99.1 F) 97.7 F L 97 F L Temperature Source Temporal Temporal Pulse Rate (60-100) 69 61 Pulse Location Monitor Monitor Respiratory Rate (12-18) 18 16 Respiratory rate source Observation Observation Oxygen Delivery Method Room Air Blood Pressure (90/60-120/80) 142/70 H 123/71 H Blood Pressure Mean (mm Hg) 94 88 Source Monitor Monitor Position Sitting Blood Pressure Location Left Arm History Since Last Visit- (Skip if this is Patient's initial visit) Have you changed medications since your No No last visit? Any new allergies or adverse reactions No No Had a fall/change in ADL's that may No No increase risk of falls Signs or symptoms of abuse and/or No No neglect since last visit Have you been in the hospital since your No last visit? Has dressing in place as prescribed Yes Yes Has compression in place as prescribed Yes Yes Has offloadiing in place as prescribed N/A N/A Experienced any changes in pain level or No No management Left Footwear Regular Shoe Right Footwear Regular Shoe Pain Scale: 0-10 Numeric Is Patient Pain Free? Yes Yes WC - Nurse 1 - General Ulcer Measurement Start: 11/02/21 13:17 Freq: Status: Active Protocol: Activity Type Activity Date Activity User E-Sign Co-Sign Detail Recorded Client Recorded Date Recorded By Document 11/02/21 13:17 DL [id number] 11/02/21 13:28 DL Document 11/04/21 09:56 [facility] [id number] 11/04/21 10:06 BM 11/02/21 11/04/21 13:17 09:56 Wound Center Nurse 1 #1 Left Medial LE -Combined with other wound No -Current Size (cm) - Length 2.3 -Current Size (cm) - Width 1 -Current Size (cm) - Depth 0.1 -Total Square Cm 2.3 -Photo Taken No No -Epithelialization None Present -Tunneling No -Undermining/Tunneling No -Circular Undermining No -Exudate Amt None Present Small -Exudate Type Serosanguineous -Wound Margin Distinct, Outline Attached -Granulation Amt None Present (0 %) -Slough/Fibrin Yes -Necrosis Amt Large (67-100%) -Necrotic Tissue Type Eschar -Texture (Loretta-wound Skin Appearance) No Abnormality Assessed, Scarring -Moisture (Loretta-wound Skin Appearance) No Abnormality Assessed -Color (Loretta-wound Skin Appearance) No Abnormality Assessed, Hemosiderin Staining -Temperature (Loretta-wound Skin No Abnormality No Abnormality Appearance) (Pt Warm) (Pt Warm) -Tenderness on Palpation (Loretta-wound No No Skin Appearance) -Ulcer Cleansing Soap and Water -Foul Odor after Cleansing No -Anesthetic Used Cetacaine 4% Lidocaine Solution Lower Limb Edema Present Yes Left Calf (cm) 37.1 38.8 Left Ankle (cm) 25.4 25 WC - Nurse 3 - General Ulcer D/C NN Start: 11/02/21 13:17 Freq: Status: Active Protocol: Activity Type Activity Date Activity User E-Sign Co-Sign Detail Recorded Client Recorded Date Recorded By Document 11/02/21 13:17 DL [id number] 11/02/21 13:28 DL Document 11/02/21 13:29 DL [id number] 11/02/21 13:31 DL 11/02/21 11/02/21 13:17 13:29 Vital Signs Temperature (97.8 F-99.1 F) 97.7 F L Temperature Source Temporal Pulse Rate (60-100) 69 Pulse Location Monitor Respiratory Rate (12-18) 18 Respiratory rate source Observation Blood Pressure (90/60-120/80) 142/70 H Blood Pressure Mean (mm Hg) 94 Source Monitor Pain Scale: 0-10 Numeric Is Patient Pain Free? Yes Yes Wound Care Nurse 3 #1 Left Medial LE -Other Dressing Epifix intact/ superabsorber Left -Multi-Layered Wrap Application Multi-Layer Comp - Left ($) WC - Visit Discharge Discharge Condition Stable Ambulatory Status Ambulatory Transportation Private Auto Assessment/Plan Assessment/Plan (1) Non-pressure chronic ulcer of left calf with fat layer exposed: CODE(S): L97.222 - Non-pressure chronic ulcer of left calf with fat layer exposed (2) Venous insufficiency (chronic) (peripheral): CODE(S): I87.2 - Venous insufficiency (chronic) (peripheral) (3) Bilateral edema of lower extremity: CODE(S): R60.0 - Localized edema PLAN: This is a 76-year-old male who presents to the wound care center for a medial left lower extremity wound secondary to chronic venous insufficiency. He states that he bumped his left leg and had developed a small raised area that weeps some fluid and crusted over with a yellow scab. He states the scab comes off when washing but returns again. He states that he only wears compression stockings every other day and cites difficulty getting them on. He has previously tried zipper stockings and also cites difficulty with these. He is accompanied by his who also states she has arthritis in her hands and cannot help her get the stockings on. Recent labs from 08/18/2021 in which he had a hemoglobin A1c of 5.8%. He denies being diabetic. He has palpable pedal pulses DP and PT bilaterally. Left lower extremity medial ulceration site demonstrates no signs of infection. Ulceration site was sharply debrided as noted in clinical panel above. Patient and are both [employer]. They have discussed the graft and are accepting of continued graft placement today. Epi fix graft (application #3) applied to the wound bed and dressed with wound veil, Steri-Strips, and a 3M compression wrap. He will return next week to change his outer dressing. He is to leave the dressings clean, dry, and intact to the left lower extremity. I instructed him to utilize a cast bag as he showers to keep the site dry. His ulceration is demonstrating good progression in healing granulating from within. Site measures 1.5 cm x 1.0 cm x 0.1 cm postdebridement. We will continue with the epi fix graft placement and continue to monitor his healing progress. I discussed proper diet control and exercise to prevent onset of diabetes mellitus type 2, patient states that he will try his best. I discussed continued exercise as this will also aid in venous return, aid in weight loss, and help prevent onset of type 2 diabetes mellitus. I reviewed and discussed his case today. Debridement was performed today as noted in the clinical panel to all of the ulcer sites. The following work up and care recommendations were made: Dressing: Epi fix graft, wound veil with Steri-Strips, 3M compression dressing Wash: Do not get wet Tissue growth optimization: Epi fix graft Offload: 3M compression dressing Vascular: Palpable pedal pulses DP and PT Edema: 3M compression dressing, elevate lower extremities at times of rest, dorsiflex and plantarflex the foot to aid in venous return by the calf muscle Infection: No localized signs of infection Pain: Patient may take [id number] Tylenol extra strength for discomfort Host factors: Chronic venous insufficiency and edema I answered all the patient's questions. To return to the wound healing center in 1 week or call sooner if the patient has any questions or concerns. Note: Swirl speech recognition paintings restorer software was used to create portions of this document. Sound-alike and misspelled words, as well as other paintings restorer errors may be contained in the documentation.
[2021-11-09 11:53] VITALS: BP 161/66; PULSE 63; RESP 20; TEMP 37.1; BMI 35.6
[2021-11-11 09:48] VITALS: BP 127/69; PULSE 66; TEMP 36.3; BMI 35.6
--- NOTE | 2021-11-11 12:27 | PCM.WC.PN ---
History of Present Illness Date of Service: 11/11/21 Chief Complaint: Left lower extremity wound History of Wound: This is a 76-year-old male who presents to the wound care center for a left lower extremity wound that has not healed complicated by chronic venous insufficiency. Patient is accompanied by his and states that he wears compression stockings every other day and not daily. He denies being a diabetic and states that his recent hemoglobin A1c was 5.8%. He states that he bumped his left lower leg and noticed a small raised area that was open and weeping. He states that this scabbed over which is easily removed during washing but rescabs over. He denies any nausea, vomiting, fever, chills, shortness of breath, or other constitutional symptoms. Subjective Subjective This 76-year-old male presents to the wound care center for follow-up of a left lower extremity ulceration secondary to chronic venous insufficiency. He is accompanied by his . He denies any constitutional symptoms today. He states the ulcerative site continues to have no pain and feels it is almost healed. He denies any other complaints today. Objective Data Objective Data Vital Signs: Vital Signs Temp Pulse Resp BP 97.4 F L 66 20 H 127/69 H 11/11/21 09:48 11/11/21 09:48 11/09/21 11:53 11/11/21 09:48 Oxygen Delivery Method Room Air Weight: 112.491 kg Body Mass Index (BMI) 35.6 Physical Exam Const alert, oriented x3 and no apparent distress General Appearance: cooperative and comfortable HEENT normocephalic Eyes General Eye: normal appearance of both eyes Neck General: normal visual inspection Lymph Lymphatic: no lymphadenopathy noted and no lymphedema noted Chest inspection of chest normal Resp normal respiratory effort Cardio regular rate and regular rhythm Extremity normal capillary refill, no calf tenderness and no pedal edema Skin no rashes or lesions noted, skin turgor normal and no jaundice Skin Narrative: Left medial lower extremity wound with a dried yellow scab secondary to chronic venous insufficiency. Surrounding skin is reddish-purple with hemosiderin stained deposition to the left lower extremity extending distally to the ankle. Right lower extremity demonstrates local area of rubor without breakdown of the skin margins consistent with a chronic venous insufficiency. No signs of infection. General Skin Exam: venous stasis and dermatitis Wound Narrative: Left lower extremity ulceration with scab covering secondary to chronic venous insufficiency with no signs of infection. Surrounding skin is a reddish-purple with hemosiderin stained deposition about the left lower extremity extending distally to the ankle. Neuro oriented x3 and moves all extremities Motor Exam: strength 5/5 throughout Debridement Note Debridement Note Wound debrided: Left medial leg Laterality: Left Wound Grade/Stage: Flores stage I Type of Debridement: Excisional debridement Anesthesia Used: 5% Lidocaine Gel Depth: Down to and including healthy tissue and in the subcutaneous layer Percentage of wound debrided: 100 Instrument Used: 3mm curette Tissue Removed: Fibrous, devitalized subcutaneous, biofilm, slough Severity: Fat Layer Exposed Amount of bleeding with debridement: Mild Bleeding Controlled with: Compression and gauze Patient tolerated procedure: Patient tolerated procedure well Post-Debridement Measurements and Additional Note: Post-Debridement Measurements/Treatment - Nurse 1 - General Ulcer Assessment Start: 11/02/21 13:17 Freq: Status: Active Protocol: ANTHONY Activity Type Activity Date Activity User E-Sign Co-Sign Detail Recorded Client Recorded Date Recorded By Document 11/02/21 13:17 DL [id number] 11/02/21 13:28 DL Document 11/04/21 09:56 [facility] [id number] 11/04/21 10:06 BM Document 11/09/21 11:53 DL [id number] 11/09/21 11:59 DL Document 11/11/21 09:48 AK [id number] 11/11/21 09:59 AK 11/02/21 11/04/21 11/09/21 13:17 09:56 11:53 - Today's Visit Information Type of service Nurse-only Follow-up Visit Nurse-only Visit (Physician/TAILINGS MAN Visit ) Arrival Mode Ambulatory Ambulatory Ambulatory Transfer Assistance None None None Accompanied by Patient Identification Verified (Name & Yes Yes Yes ) Patient Requires Transmission-Based No Precautions Safety Precautions Finger Stick Blood Sugar(mg/dl) (if doesnt check indicated): Blood Sugar Stated by Patient Height and Weight Body Mass Index (BMI) 35.6 35.6 35.6 BMI Classification Obese Obese Obese Vital Signs Temperature (97.8 F-99.1 F) 97.7 F L 97 F L 98.7 F Temperature Source Temporal Temporal Temporal Pulse Rate (60-100) 69 61 63 Pulse Location Monitor Monitor Monitor Respiratory Rate (12-18) 18 16 20 H Respiratory rate source Observation Observation Observation Oxygen Delivery Method Room Air Blood Pressure (90/60-120/80) 142/70 H 123/71 H 161/66 H Blood Pressure Mean (mm Hg) 94 88 97 Source Monitor Monitor Monitor Position Sitting Blood Pressure Location Left Arm Comment Epifix intact History Since Last Visit- (Skip if this is Patient's initial visit) Have you changed medications since your No No No last visit? Any new allergies or adverse reactions No No No Had a fall/change in ADL's that may No No No increase risk of falls Signs or symptoms of abuse and/or No No No neglect since last visit Have you been in the hospital since your No last visit? Has dressing in place as prescribed Yes Yes Yes Has compression in place as prescribed Yes Yes Yes Has offloadiing in place as prescribed N/A N/A N/A Experienced any changes in pain level or No No No management Left Footwear Regular Shoe Right Footwear Regular Shoe Pain Scale: 0-10 Numeric Is Patient Pain Free? Yes Yes Yes 11/11/21 09:48 WC - Today's Visit Information Type of service Follow-up Visit (Physician/TAILINGS MAN ) Arrival Mode Ambulatory Transfer Assistance Accompanied by Patient Identification Verified (Name & No ) Patient Requires Transmission-Based No Precautions Safety Precautions NA Finger Stick Blood Sugar(mg/dl) (if indicated): Blood Sugar Height and Weight Body Mass Index (BMI) 35.6 BMI Classification Obese Vital Signs Temperature (97.8 F-99.1 F) 97.4 F L Temperature Source Temporal Pulse Rate (60-100) 66 Pulse Location Monitor Respiratory Rate (12-18) Respiratory rate source Oxygen Delivery Method Blood Pressure (90/60-120/80) 127/69 H Blood Pressure Mean (mm Hg) 88 Source Monitor Position Blood Pressure Location Comment History Since Last Visit- (Skip if this is Patient's initial visit) Have you changed medications since your No last visit? Any new allergies or adverse reactions No Had a fall/change in ADL's that may No increase risk of falls Signs or symptoms of abuse and/or No neglect since last visit Have you been in the hospital since your No last visit? Has dressing in place as prescribed Yes Has compression in place as prescribed Yes Has offloadiing in place as prescribed N/A Experienced any changes in pain level or No management Left Footwear Regular Shoe Right Footwear Regular Shoe Pain Scale: 0-10 Numeric Is Patient Pain Free? Yes WC - Nurse 1 - General Ulcer Measurement Start: 11/02/21 13:17 Freq: Status: Active Protocol: Activity Type Activity Date Activity User E-Sign Co-Sign Detail Recorded Client Recorded Date Recorded By Document 11/02/21 13:17 DL [id number] 11/02/21 13:28 DL Document 11/04/21 09:56 BMF [id number] 11/04/21 10:06 BMF Document 11/09/21 11:53 DL [id number] 11/09/21 11:59 DL Document 11/11/21 09:48 AK [id number] 11/11/21 09:59 AK 11/02/21 11/04/21 11/09/21 13:17 09:56 11:53 Wound Center Nurse 1 #1 Left Medial LE -Combined with other wound No -Current Size (cm) - Length 2.3 -Current Size (cm) - Width 1 -Current Size (cm) - Depth 0.1 -Total Square Cm 2.3 -Photo Taken No No No -Epithelialization None Present -Tunneling No -Undermining/Tunneling No -Circular Undermining No -Exudate Amt None Present Small -Exudate Type Serosanguineous -Wound Margin Distinct, Outline Attached -Granulation Amt None Present (0 %) -Granulation Quality -Slough/Fibrin Yes -Necrosis Amt Large (67-100%) -Necrotic Tissue Type Eschar -Structure Exposed -Texture (Loretta-wound Skin Appearance) No Abnormality Assessed, No Abnormality Scarring -Moisture (Loretta-wound Skin Appearance) No Abnormality Assessed No Abnormality -Color (Loretta-wound Skin Appearance) No Abnormality Assessed, No Abnormality Hemosiderin Staining -Temperature (Loretta-wound Skin No Abnormality No Abnormality No Abnormality Appearance) (Pt Warm) (Pt Warm) (Pt Warm) -Tenderness on Palpation (Loretta-wound No No No Skin Appearance) -Ulcer Cleansing Soap and Water Soap and Water -Foul Odor after Cleansing No No -Anesthetic Used Cetacaine 4% Lidocaine Solution Lower Limb Edema Present Yes Right Calf (cm) Right Ankle (cm) Left Calf (cm) 37.1 38.8 Left Ankle (cm) 25.4 25 11/11/21 09:48 Wound Center Nurse 1 #1 Left Medial LE -Combined with other wound No -Current Size (cm) - Length 1.5 -Current Size (cm) - Width 1.2 -Current Size (cm) - Depth 0.1 -Total Square Cm 1.80 -Photo Taken No -Epithelialization -Tunneling No -Undermining/Tunneling No -Circular Undermining No -Exudate Amt -Exudate Type Serous -Wound Margin Distinct, Outline Attached -Granulation Amt Small (1-33%) -Granulation Quality N/A -Slough/Fibrin Yes -Necrosis Amt Small (1-33%) -Necrotic Tissue Type Adherent Slough -Structure Exposed N/A -Texture (Loretta-wound Skin Appearance) No Abnormality, Assessed -Moisture (Loretta-wound Skin Appearance) No Abnormality, Assessed -Color (Loretta-wound Skin Appearance) No Abnormality, Assessed -Temperature (Loretta-wound Skin No Abnormality Appearance) (Pt Warm) -Tenderness on Palpation (Loretta-wound No Skin Appearance) -Ulcer Cleansing Rinsed/ Irrigated with Saline -Foul Odor after Cleansing No -Anesthetic Used 4% Lidocaine Solution Lower Limb Edema Present No Right Calf (cm) 38 Right Ankle (cm) 26 Left Calf (cm) Left Ankle (cm) WC - Nurse 2 - General Ulcer CM Notes Start: 11/02/21 13:17 Freq: Status: Active Protocol: Activity Type Activity Date Activity User E-Sign Co-Sign Detail Recorded Client Recorded Date Recorded By Document 11/04/21 13:24 PL [id number] 11/04/21 13:25 PL Edit Result 11/04/21 13:24 PL (1) [id number] 11/04/21 13:26 PL Document 11/11/21 10:34 CHER [id number] 11/11/21 10:45 JF (1) #1 Left Medial LE - Expiration Date => 08/03/26 - Product Lot Number => [id number] - Percent Used => 100 11/04/21 11/11/21 13:24 10:34 Wound Center Nurse 2 #1 Left Medial LE -Time 10:25 10:37 -Correct Patient Yes Yes -Correct Side, Site, Position Yes Yes -Correct Procedure Yes Yes -Procedure Performed Yes Yes -Type of Procedure Debridement Debridement -Clinical Debridement Subcutaneous Subcutaneous -Tissue Removed Subcutaneous Subcutaneous -Post Debridement (cm) - Length 1.0 1.0 -Post Debridement (cm) - Width 1.0 0.8 -Post Debridement (cm) - Depth 0.1 0.1 -Total Square (Post) (cm) 1.00 0.80 -Area of Debridement (cm) - Length 1.0 1.0 -Area of Debridement (cm) - Width 1.0 0.8 -Total Square (Area) (cm) 1.00 0.80 -Tunneling No No -Undermining/Tunneling No No -Circular Undermining No No -Wound/Ulcer Outcome Not Healed Not Healed -Ulcer Cleansing Rinsed/ Rinsed/ Irrigated with Irrigated with Saline Saline -Foul Odor after Cleansing No No -Bioengineered Tissue Yes Yes -Type of Bioengineered Tissue Epifix 18mm Epifix 18mm Disc Disc -Expiration Date 08/03/26 08/31/26 -Product Lot Number [id number] -Percent Used 100 100 -Lot number of Saline Used -Bleeding Controlled with Pressure Pressure -Treatment Response Procedure Procedure Tolerated Well Tolerated Well -Offloading No -Debridement - Subq, 1st 20sq cm No No -Apply Skin Sub - 1st 25 sq cm - Legs 1 1 -Epifix 18mm Disc 3 3 Pain Scale: 0-10 Numeric Is Patient Pain Free? Yes Yes WC - Nurse 3 - General Ulcer D/C NN Start: 11/02/21 13:17 Freq: Status: Active Protocol: Activity Type Activity Date Activity User E-Sign Co-Sign Detail Recorded Client Recorded Date Recorded By Document 11/02/21 13:17 DL [id number] 11/02/21 13:28 DL Document 11/02/21 13:29 DL [id number] 11/02/21 13:31 DL Document 11/09/21 11:53 DL [id number] 11/09/21 11:59 DL Document 11/11/21 11:01 [facility] [id number] 11/11/21 11:02 [facility] 11/02/21 11/02/2122 13:17 13:29 11:53 Vital Signs Temperature (97.8 F-99.1 F) 97.7 F L 98.7 F Temperature Source Temporal Temporal Pulse Rate (60-100) 69 63 Pulse Location Monitor Monitor Respiratory Rate (12-18) 18 20 H Respiratory rate source Observation Observation Blood Pressure (90/60-120/80) 142/70 H 161/66 H Blood Pressure Mean (mm Hg) 94 97 Source Monitor Monitor Comment Epifix intact Pain Scale: 0-10 Numeric Is Patient Pain Free? Yes Yes Yes Wound Care Nurse 3 #1 Left Medial LE -Ulcer Cleansing Soap and Water -Foul Odor after Cleansing No -Other Dressing Epifix intact/ EpiFix superabsorber -Primary Dressing Covered/Secured with Dry Gauze & Roll Gauze, Secured with Tape -Other Covering Left -Multi-Layered Wrap Application Multi-Layer Unna Boot - Comp - Left ($) Left ($) Treatment Response Procedure Tolerated Well WC - Visit Discharge Discharge Condition Stable Stable Ambulatory Status Ambulatory Ambulatory Transportation Private Auto Private Auto Accompanied by 11/11/21 11:01 Vital Signs Temperature (97.8 F-99.1 F) Temperature Source Pulse Rate (60-100) Pulse Location Respiratory Rate (12-18) Respiratory rate source Blood Pressure (90/60-120/80) Blood Pressure Mean (mm Hg) Source Comment Pain Scale: 0-10 Numeric Is Patient Pain Free? Yes Wound Care Nurse 3 #1 Left Medial LE -Ulcer Cleansing -Foul Odor after Cleansing -Other Dressing epifix -Primary Dressing Covered/Secured with -Other Covering xtrasorb super absorber; abd Left -Multi-Layered Wrap Application Multi-Layer Comp - Left ($) Treatment Response Procedure Tolerated Well WC - Visit Discharge Discharge Condition Stable Ambulatory Status Ambulatory Transportation Private Auto Accompanied by Assessment/Plan Assessment/Plan (1) Non-pressure chronic ulcer of left calf with fat layer exposed: CODE(S): L97.222 - Non-pressure chronic ulcer of left calf with fat layer exposed (2) Venous insufficiency (chronic) (peripheral): CODE(S): I87.2 - Venous insufficiency (chronic) (peripheral) (3) Bilateral edema of lower extremity: CODE(S): R60.0 - Localized edema PLAN: This is a 76-year-old male who presents to the wound care center for a medial left lower extremity wound secondary to chronic venous insufficiency. Patient seen and evaluated He has palpable pedal pulses DP and PT bilaterally. Left lower extremity medial ulceration site demonstrates no signs of infection. Ulceration site was sharply debrided as noted in clinical panel above. Patient and are both [employer]. They have discussed the graft and are accepting of continued graft placement today. They are pleased with his healing progress. Epi fix graft (application #4) applied to the wound bed and dressed with wound veil, Steri-Strips, and a 3M compression wrap. He will return next week to change his outer dressing. He is to leave the dressings clean, dry, and intact to the left lower extremity. I instructed him to utilize a cast bag as he showers to keep the site dry. His ulceration is demonstrating good progression in healing granulating from within. Site measures 1.0 cm x 0.8 cm x 0.1 cm postdebridement. We will continue with the epi fix graft placement and continue to monitor his healing progress. I discussed proper diet control and exercise to prevent onset of diabetes mellitus type 2, patient states that he will try his best. I discussed continued exercise as this will also aid in venous return, aid in weight loss, and help prevent onset of type 2 diabetes mellitus. I reviewed and discussed his case today. Debridement was performed today as noted in the clinical panel to all of the ulcer sites. The following work up and care recommendations were made: Dressing: Epi fix graft, wound veil with Steri-Strips, 3M compression dressing Wash: Do not get wet Tissue growth optimization: Epi fix graft Offload: 3M compression dressing Vascular: Palpable pedal pulses DP and PT Edema: 3M compression dressing, elevate lower extremities at times of rest, dorsiflex and plantarflex the foot to aid in venous return by the calf muscle Infection: No localized signs of infection Pain: Patient may take [id number] Tylenol extra strength for discomfort Host factors: Chronic venous insufficiency and edema. HgbA1c 5.8% from 08/18/21 I answered all the patient's questions. To return to the wound healing center in 1 week or call sooner if the patient has any questions or concerns. Note: [employer] speech recognition construction accountant software was used to create portions of this document. Sound-alike and misspelled words, as well as other construction accountant errors may be contained in the documentation.
[2021-11-16 14:02] VITALS: BP 127/54; PULSE 68; RESP 16; TEMP 36; BMI 35.6
[2021-11-18 09:45] VITALS: BP 133/59; TEMP 35.7; BMI 35.6
--- NOTE | 2021-11-18 13:50 | PCM.WC.PN ---
History of Present Illness Date of Service: 11/18/21 Chief Complaint: Left lower extremity wound History of Wound: This is a 76-year-old male who presents to the wound care center for a left lower extremity wound that has not healed complicated by chronic venous insufficiency. Patient is accompanied by his and states that he wears compression stockings every other day and not daily. He denies being a diabetic and states that his recent hemoglobin A1c was 5.8%. He states that he bumped his left lower leg and noticed a small raised area that was open and weeping. He states that this scabbed over which is easily removed during washing but rescabs over. He denies any nausea, vomiting, fever, chills, shortness of breath, or other constitutional symptoms. Subjective Subjective This 76-year-old male presents to the wound care center for follow-up of a left lower extremity ulceration secondary to chronic venous insufficiency. He is accompanied by his . He denies any constitutional symptoms today. He states the ulcerative site continues to have no pain and feels it is very close to being healed. He denies any other complaints today. Objective Data Objective Data Vital Signs: Vital Signs Temp Pulse Resp BP 96.2 F L 68 16 133/59 H 11/18/21 09:45 11/16/21 14:02 11/16/21 14:02 11/18/21 09:45 Oxygen Delivery Method Room Air Weight: 112.491 kg Body Mass Index (BMI) 35.6 Physical Exam Const alert, oriented x3 and no apparent distress General Appearance: cooperative and comfortable HEENT normocephalic Eyes General Eye: normal appearance of both eyes Neck General: normal visual inspection Lymph Lymphatic: no lymphadenopathy noted and no lymphedema noted Chest inspection of chest normal Resp normal respiratory effort Cardio regular rate and regular rhythm Extremity normal capillary refill, no calf tenderness and no pedal edema Skin no rashes or lesions noted, skin turgor normal and no jaundice Skin Narrative: Left medial lower extremity wound with a dried yellow scab secondary to chronic venous insufficiency. Surrounding skin is reddish-purple with hemosiderin stained deposition to the left lower extremity extending distally to the ankle. Right lower extremity demonstrates local area of rubor without breakdown of the skin margins consistent with a chronic venous insufficiency. No signs of infection. General Skin Exam: venous stasis and dermatitis Wound Narrative: Left lower extremity ulceration with scab covering secondary to chronic venous insufficiency with no signs of infection. Surrounding skin is a reddish-purple with hemosiderin stained deposition about the left lower extremity extending distally to the ankle. Neuro oriented x3 and moves all extremities Motor Exam: strength 5/5 throughout Debridement Note Debridement Note Wound debrided: Left lower extremity Laterality: Left Wound Grade/Stage: Flores stage I Type of Debridement: Excisional debridement Anesthesia Used: 5% Lidocaine Gel Depth: Down to and including healthy tissue and in the subcutaneous layer Percentage of wound debrided: 100 Instrument Used: 3mm curette Tissue Removed: Fibrous, devitalized subcutaneous, biofilm, slough Severity: Fat Layer Exposed Amount of bleeding with debridement: Mild Bleeding Controlled with: Compression and gauze Patient tolerated procedure: Patient tolerated procedure well Post-Debridement Measurements and Additional Note: Post-Debridement Measurements/Treatment - Nurse 1 - General Ulcer Assessment Start: 11/02/21 13:17 Freq: Status: Active Protocol: ANTHONY Activity Type Activity Date Activity User E-Sign Co-Sign Detail Recorded Client Recorded Date Recorded By Document 11/02/21 13:17 DL [id number] 11/02/21 13:28 DL Document 11/04/21 09:56 [facility] [id number] 11/04/21 10:06 [facility] Document 11/09/21 11:53 DL [id number] 11/09/21 11:59 DL Document 11/11/21 09:48 [place] [id number] 11/11/21 09:59 AK Document 11/16/21 14:02 [facility] [id number] 11/16/21 14:03 [facility] Document 11/18/21 09:45 AK [id number] 11/18/21 09:55 AK 11/02/21 11/04/21 11/09/21 13:17 09:56 11:53 - Today's Visit Information Type of service Nurse-only Follow-up Visit Nurse-only Visit (Physician/WINDOWS ADMINISTRATOR Visit ) Arrival Mode Ambulatory Ambulatory Ambulatory Transfer Assistance None None None Accompanied by Patient Identification Verified (Name & Yes Yes Yes ) Patient Requires Transmission-Based No Precautions Safety Precautions Finger Stick Blood Sugar(mg/dl) (if doesnt check indicated): Blood Sugar Stated by Patient Height and Weight Body Mass Index (BMI) 35.6 35.6 35.6 BMI Classification Obese Obese Obese Vital Signs Temperature (97.8 F-99.1 F) 97.7 F L 97 F L 98.7 F Temperature Source Temporal Temporal Temporal Pulse Rate (60-100) 69 61 63 Pulse Location Monitor Monitor Monitor Respiratory Rate (12-18) 18 16 20 H Respiratory rate source Observation Observation Observation Oxygen Delivery Method Room Air Blood Pressure (90/60-120/80) 142/70 H 123/71 H 161/66 H Blood Pressure Mean (mm Hg) 94 88 97 Source Monitor Monitor Monitor Position Sitting Blood Pressure Location Left Arm Comment Epifix intact History Since Last Visit- (Skip if this is Patient's initial visit) Have you changed medications since your No No No last visit? Any new allergies or adverse reactions No No No Had a fall/change in ADL's that may No No No increase risk of falls Signs or symptoms of abuse and/or No No No neglect since last visit Have you been in the hospital since your No last visit? Has dressing in place as prescribed Yes Yes Yes Has compression in place as prescribed Yes Yes Yes Has offloadiing in place as prescribed N/A N/A N/A Experienced any changes in pain level or No No No management Left Footwear Regular Shoe Right Footwear Regular Shoe Pain Scale: 0-10 Numeric Is Patient Pain Free? Yes Yes Yes 11/11/21 11/16/21 11/18/21 09:48 14:02 09:45 WC - Today's Visit Information Type of service Follow-up Visit Nurse-only Follow-up Visit (Physician/WINDOWS ADMINISTRATOR Visit (Physician/WINDOWS ADMINISTRATOR ) ) Arrival Mode Ambulatory Ambulatory Ambulatory Transfer Assistance None Accompanied by Patient Identification Verified (Name & No Yes Yes ) Patient Requires Transmission-Based No No No Precautions Safety Precautions NA Finger Stick Blood Sugar(mg/dl) (if indicated): Blood Sugar Height and Weight Body Mass Index (BMI) 35.6 35.6 35.6 BMI Classification Obese Obese Obese Vital Signs Temperature (97.8 F-99.1 F) 97.4 F L 96.8 F L 96.2 F L Temperature Source Temporal Temporal Temporal Pulse Rate (60-100) 66 68 Pulse Location Monitor Monitor Respiratory Rate (12-18) 16 Respiratory rate source Observation Oxygen Delivery Method Room Air Blood Pressure (90/60-120/80) 127/69 H 127/54 H 133/59 H Blood Pressure Mean (mm Hg) 88 78 83 Source Monitor Monitor Monitor Position Sitting Blood Pressure Location Left Arm Comment History Since Last Visit- (Skip if this is Patient's initial visit) Have you changed medications since your No No No last visit? Any new allergies or adverse reactions No No No Had a fall/change in ADL's that may No No No increase risk of falls Signs or symptoms of abuse and/or No No No neglect since last visit Have you been in the hospital since your No No No last visit? Has dressing in place as prescribed Yes Yes Yes Has compression in place as prescribed Yes Yes Yes Has offloadiing in place as prescribed N/A N/A N/A Experienced any changes in pain level or No No No management Left Footwear Regular Shoe Regular Shoe Regular Shoe Right Footwear Regular Shoe Regular Shoe Regular Shoe Pain Scale: 0-10 Numeric Is Patient Pain Free? Yes Yes Yes WC - Nurse 1 - General Ulcer Measurement Start: 11/02/21 13:17 Freq: Status: Active Protocol: Activity Type Activity Date Activity User E-Sign Co-Sign Detail Recorded Client Recorded Date Recorded By Document 11/02/21 13:17 DL [id number] 11/02/21 13:28 DL Document 11/04/21 09:56 [facility] [id number] 11/04/21 10:06 [facility] Document 11/09/21 11:53 DL [id number] 11/09/21 11:59 DL Document 11/11/21 09:48 AK [id number] 11/11/21 09:59 AK Document 11/16/21 14:02 BM [id number] 11/16/21 14:03 [facility] Document 11/18/21 09:45 AK [id number] 11/18/21 09:55 AK 11/02/21 11/04/21 11/09/21 13:17 09:56 11:53 Wound Center Nurse 1 #1 Left Medial LE -Combined with other wound No -Current Size (cm) - Length 2.3 -Current Size (cm) - Width 1 -Current Size (cm) - Depth 0.1 -Total Square Cm 2.3 -Photo Taken No No No -Epithelialization None Present -Tunneling No -Undermining/Tunneling No -Circular Undermining No -Exudate Amt None Present Small -Exudate Type Serosanguineous -Wound Margin Distinct, Outline Attached -Granulation Amt None Present (0 %) -Granulation Quality -Slough/Fibrin Yes -Necrosis Amt Large (67-100%) -Necrotic Tissue Type Eschar -Structure Exposed -Texture (Loretta-wound Skin Appearance) No Abnormality Assessed, No Abnormality Scarring -Moisture (Loretta-wound Skin Appearance) No Abnormality Assessed No Abnormality -Color (Loretta-wound Skin Appearance) No Abnormality Assessed, No Abnormality Hemosiderin Staining -Temperature (Loretta-wound Skin No Abnormality No Abnormality No Abnormality Appearance) (Pt Warm) (Pt Warm) (Pt Warm) -Tenderness on Palpation (Loretta-wound No No No Skin Appearance) -Ulcer Cleansing Soap and Water Soap and Water -Foul Odor after Cleansing No No -Anesthetic Used Cetacaine 4% Lidocaine Solution Lower Limb Edema Present Yes Right Calf (cm) Right Ankle (cm) Left Calf (cm) 37.1 38.8 Left Ankle (cm) 25.4 25 11/11/21 11/16/21 11/18/21 09:48 14:02 09:45 Wound Center Nurse 1 #1 Left Medial LE -Combined with other wound No No -Current Size (cm) - Length 1.5 0.1 -Current Size (cm) - Width 1.2 0.1 -Current Size (cm) - Depth 0.1 0.1 -Total Square Cm 1.80 0.01 -Photo Taken No No -Epithelialization None Present -Tunneling No No -Undermining/Tunneling No No -Circular Undermining No No -Exudate Amt Small -Exudate Type Serous Serosanguineous -Wound Margin Distinct, Distinct, Outline Outline Attached Attached -Granulation Amt Small (1-33%) Small (1-33%) -Granulation Quality N/A [place] -Slough/Fibrin Yes -Necrosis Amt Small (1-33%) None Present (0 %) -Necrotic Tissue Type Adherent Slough -Structure Exposed N/A N/A -Texture (Loretta-wound Skin Appearance) No Abnormality, Assessed, Assessed Crepitus -Moisture (Loretta-wound Skin Appearance) No Abnormality, No Abnormality, Assessed Assessed -Color (Loretta-wound Skin Appearance) No Abnormality, No Abnormality, Assessed Assessed -Temperature (Loretta-wound Skin No Abnormality No Abnormality Appearance) (Pt Warm) (Pt Warm) -Tenderness on Palpation (Loretta-wound No No Skin Appearance) -Ulcer Cleansing Rinsed/ Soap and Water Irrigated with Saline -Foul Odor after Cleansing No No -Anesthetic Used 4% Lidocaine 4% Lidocaine Solution Solution Lower Limb Edema Present No Yes No Right Calf (cm) 38 Right Ankle (cm) 26 Left Calf (cm) 38 39 Left Ankle (cm) 25 25 WC - Nurse 2 - General Ulcer CM Notes Start: 11/02/21 13:17 Freq: Status: Active Protocol: Activity Type Activity Date Activity User E-Sign Co-Sign Detail Recorded Client Recorded Date Recorded By Document 11/04/21 13:24 PL [id number] 11/04/21 13:25 PL Edit Result 11/04/21 13:24 PL (1) [id number] 11/04/21 13:26 PL Document 11/11/21 10:34 CHER [id number] 11/11/21 10:45 JF (1) #1 Left Medial LE - Expiration Date => 08/03/26 - Product Lot Number => [id number] - Percent Used => 100 11/04/21 11/11/21 13:24 10:34 Wound Center Nurse 2 #1 Left Medial LE -Time 10:25 10:37 -Correct Patient Yes Yes -Correct Side, Site, Position Yes Yes -Correct Procedure Yes Yes -Procedure Performed Yes Yes -Type of Procedure Debridement Debridement -Clinical Debridement Subcutaneous Subcutaneous -Tissue Removed Subcutaneous Subcutaneous -Post Debridement (cm) - Length 1.0 1.0 -Post Debridement (cm) - Width 1.0 0.8 -Post Debridement (cm) - Depth 0.1 0.1 -Total Square (Post) (cm) 1.00 0.80 -Area of Debridement (cm) - Length 1.0 1.0 -Area of Debridement (cm) - Width 1.0 0.8 -Total Square (Area) (cm) 1.00 0.80 -Tunneling No No -Undermining/Tunneling No No -Circular Undermining No No -Wound/Ulcer Outcome Not Healed Not Healed -Ulcer Cleansing Rinsed/ Rinsed/ Irrigated with Irrigated with Saline Saline -Foul Odor after Cleansing No No -Bioengineered Tissue Yes Yes -Type of Bioengineered Tissue Epifix 18mm Epifix 18mm Disc Disc -Expiration Date 08/03/26 08/31/26 -Product Lot Number [id number] -Percent Used 100 100 -Lot number of Saline Used -Bleeding Controlled with Pressure Pressure -Treatment Response Procedure Procedure Tolerated Well Tolerated Well -Offloading No -Debridement - Subq, 1st 20sq cm No No -Apply Skin Sub - 1st 25 sq cm - Legs 1 1 -Epifix 18mm Disc 3 3 Pain Scale: 0-10 Numeric Is Patient Pain Free? Yes Yes WC - Nurse 3 - General Ulcer D/C NN Start: 11/02/21 13:17 Freq: Status: Active Protocol: Activity Type Activity Date Activity User E-Sign Co-Sign Detail Recorded Client Recorded Date Recorded By Document 11/02/21 13:17 DL [id number] 11/02/21 13:28 DL Document 11/02/21 13:29 DL [id number] 11/02/21 13:31 DL Document 11/09/21 11:53 DL [id number] 11/09/21 11:59 DL Document 11/11/21 11:01 [facility] [id number] 11/11/21 11:02 BMF Document 11/16/21 14:02 [facility] [id number] 11/16/21 14:03 [facility] 11/02/21 11/02/21 11/09/21 13:17 13:29 11:53 Vital Signs Temperature (97.8 F-99.1 F) 97.7 F L 98.7 F Temperature Source Temporal Temporal Pulse Rate (60-100) 69 63 Pulse Location Monitor Monitor Respiratory Rate (12-18) 18 20 H Respiratory rate source Observation Observation Oxygen Delivery Method Blood Pressure (90/60-120/80) 142/70 H 161/66 H Blood Pressure Mean (mm Hg) 94 97 Source Monitor Monitor Position Blood Pressure Location Comment Epifix intact Pain Scale: 0-10 Numeric Is Patient Pain Free? Yes Yes Yes Wound Care Nurse 3 #1 Left Medial LE -Ulcer Cleansing Soap and Water -Foul Odor after Cleansing No -Primary Dressing Applied -Other Dressing Epifix intact/ EpiFix superabsorber -Primary Dressing Covered/Secured with Dry Gauze & Roll Gauze, Secured with Tape -Other Covering -Optilok 6.5x10 Left -Multi-Layered Wrap Application Multi-Layer Unna Boot - Comp - Left ($) Left ($) Treatment Response Procedure Tolerated Well WC - Visit Discharge Discharge Condition Stable Stable Ambulatory Status Ambulatory Ambulatory Transportation [employer] Accompanied by 11/11/21 11/16/21 11:01 14:02 Vital Signs Temperature (97.8 F-99.1 F) 96.8 F L Temperature Source Temporal Pulse Rate (60-100) 68 Pulse Location Monitor Respiratory Rate (12-18) 16 Respiratory rate source Observation Oxygen Delivery Method Room Air Blood Pressure (90/60-120/80) 127/54 H Blood Pressure Mean (mm Hg) 78 Source Monitor Position Sitting Blood Pressure Location Left Arm Comment Pain Scale: 0-10 Numeric Is Patient Pain Free? Yes Yes Wound Care Nurse 3 #1 Left Medial LE -Ulcer Cleansing -Foul Odor after Cleansing -Primary Dressing Applied Optilok 6.5x10 -Other Dressing epifix EPIFIX LEFT INTACT -Primary Dressing Covered/Secured with -Other Covering xtrasorb super SUPERABSORBER, absorber; abd 3M PER [place] [employer] APPLICATION SUPPORT SPECIALIST -Optilok 6.5x10 1 Left -Multi-Layered Wrap Application Multi-Layer Multi-Layer Comp - Left ($) Comp - Left ($) Treatment Response Procedure Procedure Tolerated Well Tolerated Well WC - Visit Discharge Discharge Condition Stable Stable Ambulatory Status Ambulatory Ambulatory Transportation [employer] Accompanied by Assessment/Plan Assessment/Plan (1) Non-pressure chronic ulcer of left calf with fat layer exposed: CODE(S): L97.222 - Non-pressure chronic ulcer of left calf with fat layer exposed (2) Venous insufficiency (chronic) (peripheral): CODE(S): I87.2 - Venous insufficiency (chronic) (peripheral) (3) Bilateral edema of lower extremity: CODE(S): R60.0 - Localized edema PLAN: This is a 76-year-old male who presents to the wound care center for a medial left lower extremity wound secondary to chronic venous insufficiency. Patient seen and evaluated Left lower extremity medial ulceration site demonstrates no signs of infection. Ulceration site was sharply debrided as noted in clinical panel above. Patient and are both [employer]. They have discussed the graft and are accepting of continued graft placement today. They are very pleased with his healing progress. Epi fix graft (application #5) applied to the wound bed and dressed with wound veil, Steri-Strips, and a 3M compression wrap. He will return next week to change his outer dressing. He is to leave the dressings clean, dry, and intact to the left lower extremity. I instructed him to utilize a cast bag as he showers to keep the site dry. His ulceration is demonstrating good progression in healing granulating from within. Site measures 0.1 cm x 0.1 cm x 0.1 cm postdebridement. We will continue with the epi fix graft placement and continue to monitor his healing progress. I discussed proper diet control and exercise to prevent onset of diabetes mellitus type 2, patient states that he will try his best. I discussed continued exercise as this will also aid in venous return, aid in weight loss, and help prevent onset of type 2 diabetes mellitus. I reviewed and discussed his case today. Debridement was performed today as noted in the clinical panel to all of the ulcer sites. The following work up and care recommendations were made: Dressing: Epi fix graft, wound veil with Steri-Strips, 3M compression dressing Wash: Do not get wet Tissue growth optimization: Epi fix graft Offload: 3M compression dressing Vascular: Palpable pedal pulses DP and PT Edema: 3M compression dressing, elevate lower extremities at times of rest, dorsiflex and plantarflex the foot to aid in venous return by the calf muscle Infection: No localized signs of infection Pain: Patient may take prgr-doz-escavvx Tylenol extra strength for discomfort Host factors: Chronic venous insufficiency and edema. HgbA1c 5.8% from 08/18/21 I answered all the patient's questions. To return to the wound healing center in 1 week or call sooner if the patient has any questions or concerns. Note: [employer] speech recognition front office director software was used to create portions of this document. Sound-alike and misspelled words, as well as other front office director errors may be contained in the documentation.
[2021-11-23 14:19] VITALS: BP 128/79; PULSE 68; RESP 16; TEMP 35.7; BMI 35.6
--- NOTE | 2021-11-25 10:04 | PN.PCM_ITS ---
History of Present Illness Date of Service: 11/25/21 Chief Complaint: Left lower extremity wound History of Wound: This is a 76-year-old male who presents to the wound care center for a left lower extremity wound that has not healed complicated by chronic venous insufficiency. Patient is accompanied by his and states that he wears compression stockings every other day and not daily. He denies being a diabetic and states that his recent hemoglobin A1c was 5.8%. He states that he bumped his left lower leg and noticed a small raised area that was open and weeping. He states that this scabbed over which is easily removed during washing but rescabs over. He denies any nausea, vomiting, fever, chills, shortness of breath, or other constitutional symptoms. Subjective Subjective This 76-year-old male presents to the wound care center for follow-up of a left lower extremity ulceration secondary to chronic venous insufficiency. He is accompanied by his . He denies any constitutional symptoms today. He states the ulcerative site continues to have no pain and feels it is healed today. He denies any other complaints today. Objective Data Objective Data Vital Signs: Vital Signs Temp Pulse Resp BP 96.2 F L 68 16 128/79 H 11/23/21 14:19 11/23/21 14:19 11/23/21 14:19 11/23/21 14:19 Oxygen Delivery Method Room Air Weight: 112.491 kg Body Mass Index (BMI) 35.6 Physical Exam Const alert, oriented x3 and no apparent distress General Appearance: cooperative and comfortable HEENT normocephalic Eyes General Eye: normal appearance of both eyes Neck General: normal visual inspection Lymph Lymphatic: no lymphadenopathy noted and no lymphedema noted Chest inspection of chest normal Resp normal respiratory effort Cardio regular rate and regular rhythm Extremity normal capillary refill, no calf tenderness and no pedal edema Skin no rashes or lesions noted, skin turgor normal and no jaundice Skin Narrative: Left medial lower extremity wound secondary to chronic venous insufficiency. Ulcerative site demonstrates healed but friable skin. No signs of infection. Surrounding skin is reddish-purple with hemosiderin stained deposition to the left lower extremity extending distally to the ankle. Right lower extremity demonstrates local area of rubor without breakdown of the skin margins consistent with a chronic venous insufficiency. No signs of infection. General Skin Exam: venous stasis and dermatitis Wound Narrative: Left lower extremity ulceration with scab covering secondary to chronic venous insufficiency with no signs of infection. Surrounding skin is a reddish-purple with hemosiderin stained deposition about the left lower extremity extending distally to the ankle. Neuro oriented x3 and moves all extremities Motor Exam: strength 5/5 throughout Debridement Note Debridement Note No debridement was completed: No debridement was completed today Post-Debridement Measurements and Additional Note: Post-Debridement Measurements/Treatment - Nurse 1 - General Ulcer Assessment Start: 11/02/21 13:17 Freq: Status: Active Protocol: ANTHONY Activity Type Activity Date Activity User E-Sign Co-Sign Detail Recorded Client Recorded Date Recorded By Document 11/02/21 13:17 DL [id number] 11/02/21 13:28 DL Document 11/04/21 09:56 BMF [id number] 11/04/21 10:06 [facility] Document 11/09/21 11:53 DL [id number] 11/09/21 11:59 DL Document 11/11/21 09:48 [place] [id number] 11/11/21 09:59 [place] Document 11/16/21 14:02 BMF [id number] 11/16/21 14:03 [facility] Document 11/18/21 09:45 AK [id number] 11/18/21 09:55 AK Document 11/23/21 14:19 [facility] [id number] 11/23/21 14:21 [facility] 11/02/21 11/04/21 11/09/21 13:17 09:56 11:53 - Today's Visit Information Type of service Nurse-only Follow-up Visit Nurse-only Visit (Physician/BIOMEDICAL ENGINEER Visit ) Arrival Mode Ambulatory Ambulatory Ambulatory Transfer Assistance None None None Accompanied by Patient Identification Verified (Name & Yes Yes Yes ) Patient Requires Transmission-Based No Precautions Safety Precautions Finger Stick Blood Sugar(mg/dl) (if doesnt check indicated): Blood Sugar Stated by Patient Height and Weight Body Mass Index (BMI) 35.6 35.6 35.6 BMI Classification Obese Obese Obese Vital Signs Temperature (97.8 F-99.1 F) 97.7 F L 97 F L 98.7 F Temperature Source Temporal Temporal Temporal Pulse Rate (60-100) 69 61 63 Pulse Location Monitor Monitor Monitor Respiratory Rate (12-18) 18 16 20 H Respiratory rate source Observation Observation Observation Oxygen Delivery Method Room Air Blood Pressure (90/60-120/80) 142/70 H 123/71 H 161/66 H Blood Pressure Mean (mm Hg) 94 88 97 Source Monitor Monitor Monitor Position Sitting Blood Pressure Location Left Arm Comment Epifix intact History Since Last Visit- (Skip if this is Patient's initial visit) Have you changed medications since your No No No last visit? Any new allergies or adverse reactions No No No Had a fall/change in ADL's that may No No No increase risk of falls Signs or symptoms of abuse and/or No No No neglect since last visit Have you been in the hospital since your No last visit? Has dressing in place as prescribed Yes Yes Yes Has compression in place as prescribed Yes Yes Yes Has offloadiing in place as prescribed N/A N/A N/A Experienced any changes in pain level or No No No management Left Footwear Regular Shoe Right Footwear Regular Shoe Pain Scale: 0-10 Numeric Is Patient Pain Free? Yes Yes Yes 11/11/21 11/16/21 11/18/21 09:48 14:02 09:45 WC - Today's Visit Information Type of service Follow-up Visit Nurse-only Follow-up Visit (Physician/BIOMEDICAL ENGINEER Visit (Physician/BIOMEDICAL ENGINEER ) ) Arrival Mode Ambulatory Ambulatory Ambulatory Transfer Assistance None Accompanied by Patient Identification Verified (Name & No Yes Yes ) Patient Requires Transmission-Based No No No Precautions Safety Precautions NA Finger Stick Blood Sugar(mg/dl) (if indicated): Blood Sugar Height and Weight Body Mass Index (BMI) 35.6 35.6 35.6 BMI Classification Obese Obese Obese Vital Signs Temperature (97.8 F-99.1 F) 97.4 F L 96.8 F L 96.2 F L Temperature Source Temporal Temporal Temporal Pulse Rate (60-100) 66 68 Pulse Location Monitor Monitor Respiratory Rate (12-18) 16 Respiratory rate source Observation Oxygen Delivery Method Room Air Blood Pressure (90/60-120/80) 127/69 H 127/54 H 133/59 H Blood Pressure Mean (mm Hg) 88 78 83 Source Monitor Monitor Monitor Position Sitting Blood Pressure Location Left Arm Comment History Since Last Visit- (Skip if this is Patient's initial visit) Have you changed medications since your No No No last visit? Any new allergies or adverse reactions No No No Had a fall/change in ADL's that may No No No increase risk of falls Signs or symptoms of abuse and/or No No No neglect since last visit Have you been in the hospital since your No No No last visit? Has dressing in place as prescribed Yes Yes Yes Has compression in place as prescribed Yes Yes Yes Has offloadiing in place as prescribed N/A N/A N/A Experienced any changes in pain level or No No No management Left Footwear Regular Shoe Regular Shoe Regular Shoe Right Footwear Regular Shoe Regular Shoe Regular Shoe Pain Scale: 0-10 Numeric Is Patient Pain Free? Yes Yes Yes 11/23/21 14:19 WC - Today's Visit Information Type of service Nurse-only Visit Arrival Mode Ambulatory Transfer Assistance None Accompanied by Patient Identification Verified (Name & Yes ) Patient Requires Transmission-Based No Precautions Safety Precautions Finger Stick Blood Sugar(mg/dl) (if indicated): Blood Sugar Height and Weight Body Mass Index (BMI) 35.6 BMI Classification Obese Vital Signs Temperature (97.8 F-99.1 F) 96.2 F L Temperature Source Temporal Pulse Rate (60-100) 68 Pulse Location Monitor Respiratory Rate (12-18) 16 Respiratory rate source Observation Oxygen Delivery Method Room Air Blood Pressure (90/60-120/80) 128/79 H Blood Pressure Mean (mm Hg) 95 Source Monitor Position Sitting Blood Pressure Location Right Arm Comment History Since Last Visit- (Skip if this is Patient's initial visit) Have you changed medications since your No last visit? Any new allergies or adverse reactions No Had a fall/change in ADL's that may No increase risk of falls Signs or symptoms of abuse and/or No neglect since last visit Have you been in the hospital since your No last visit? Has dressing in place as prescribed Yes Has compression in place as prescribed Yes Has offloadiing in place as prescribed N/A Experienced any changes in pain level or No management Left Footwear Regular Shoe Right Footwear Regular Shoe Pain Scale: 0-10 Numeric Is Patient Pain Free? Yes - Nurse 1 - General Ulcer Measurement Start: 11/02/21 13:17 Freq: Status: Active Protocol: Activity Type Activity Date Activity User E-Sign Co-Sign Detail Recorded Client Recorded Date Recorded By Document 11/02/21 13:17 DL [id number] 11/02/21 13:28 DL Document 11/04/21 09:56 BMF [id number] 11/04/21 10:06 BMF Document 11/09/21 11:53 DL [id number] 11/09/21 11:59 DL Document 11/11/21 09:48 AK [id number] 11/11/21 09:59 [place] Document 11/16/21 14:02 BMF [id number] 11/16/21 14:03 BMF Document 11/18/21 09:45 AK [id number] 11/18/21 09:55 [place] Document 11/23/21 14:19 BMF [id number] 11/23/21 14:21 BMF Edit Result 11/23/21 14:19 BMF (1) [id number] 11/23/21 14:22 BMF (1) Left Calf (cm) => 38.6 Left Ankle (cm) => 25.5 11/02/21 11/04/21 11/09/21 13:17 09:56 11:53 Wound Center Nurse 1 #1 Left Medial LE -Combined with other wound No -Current Size (cm) - Length 2.3 -Current Size (cm) - Width 1 -Current Size (cm) - Depth 0.1 -Total Square Cm 2.3 -Photo Taken No No No -Epithelialization None Present -Tunneling No -Undermining/Tunneling No -Circular Undermining No -Exudate Amt None Present Small -Exudate Type Serosanguineous -Wound Margin Distinct, Outline Attached -Granulation Amt None Present (0 %) -Granulation Quality -Slough/Fibrin Yes -Necrosis Amt Large (67-100%) -Necrotic Tissue Type Eschar -Structure Exposed -Texture (Loretta-wound Skin Appearance) No Abnormality Assessed, No Abnormality Scarring -Moisture (Loretta-wound Skin Appearance) No Abnormality Assessed No Abnormality -Color (Loretta-wound Skin Appearance) No Abnormality Assessed, No Abnormality Hemosiderin Staining -Temperature (Loretta-wound Skin No Abnormality No Abnormality No Abnormality Appearance) (Pt Warm) (Pt Warm) (Pt Warm) -Tenderness on Palpation (Loretta-wound No No No Skin Appearance) -Ulcer Cleansing Soap and Water Soap and Water -Foul Odor after Cleansing No No -Anesthetic Used Cetacaine 4% Lidocaine Solution Lower Limb Edema Present Yes Right Calf (cm) Right Ankle (cm) Left Calf (cm) 37.1 38.8 Left Ankle (cm) 25.4 25 11/11/21 11/16/21 11/18/21 09:48 14:02 09:45 Wound Center Nurse 1 #1 Left Medial LE -Combined with other wound No No -Current Size (cm) - Length 1.5 0.1 -Current Size (cm) - Width 1.2 0.1 -Current Size (cm) - Depth 0.1 0.1 -Total Square Cm 1.80 0.01 -Photo Taken No No -Epithelialization None Present -Tunneling No No -Undermining/Tunneling No No -Circular Undermining No No -Exudate Amt Small -Exudate Type Serous Serosanguineous -Wound Margin Distinct, Distinct, Outline Outline Attached Attached -Granulation Amt Small (1-33%) Small (1-33%) -Granulation Quality N/A [place] -Slough/Fibrin Yes -Necrosis Amt Small (1-33%) None Present (0 %) -Necrotic Tissue Type Adherent Slough -Structure Exposed N/A N/A -Texture (Loretta-wound Skin Appearance) No Abnormality, Assessed, Assessed Crepitus -Moisture (Loretta-wound Skin Appearance) No Abnormality, No Abnormality, Assessed Assessed -Color (Loretta-wound Skin Appearance) No Abnormality, No Abnormality, Assessed Assessed -Temperature (Loretta-wound Skin No Abnormality No Abnormality Appearance) (Pt Warm) (Pt Warm) -Tenderness on Palpation (Loretta-wound No No Skin Appearance) -Ulcer Cleansing Rinsed/ Soap and Water Irrigated with Saline -Foul Odor after Cleansing No No -Anesthetic Used 4% Lidocaine 4% Lidocaine Solution Solution Lower Limb Edema Present No Yes No Right Calf (cm) 38 Right Ankle (cm) 26 Left Calf (cm) 38 39 Left Ankle (cm) 11/23/21 14:19 Wound Center Nurse 1 #1 Left Medial LE -Combined with other wound -Current Size (cm) - Length -Current Size (cm) - Width -Current Size (cm) - Depth -Total Square Cm -Photo Taken -Epithelialization -Tunneling -Undermining/Tunneling -Circular Undermining -Exudate Amt -Exudate Type -Wound Margin -Granulation Amt -Granulation Quality -Slough/Fibrin -Necrosis Amt -Necrotic Tissue Type -Structure Exposed -Texture (Loretta-wound Skin Appearance) -Moisture (Loretta-wound Skin Appearance) -Color (Loretta-wound Skin Appearance) -Temperature (Loretta-wound Skin Appearance) -Tenderness on Palpation (Loretta-wound Skin Appearance) -Ulcer Cleansing -Foul Odor after Cleansing -Anesthetic Used Lower Limb Edema Present Yes Right Calf (cm) Right Ankle (cm) Left Calf (cm) 38.6 Left Ankle (cm) 25.5 WC - Nurse 2 - General Ulcer CM Notes Start: 11/02/21 13:17 Freq: Status: Active Protocol: Activity Type Activity Date Activity User E-Sign Co-Sign Detail Recorded Client Recorded Date Recorded By Document 11/04/21 13:24 PL [id number] 11/04/21 13:25 PL Edit Result 11/04/21 13:24 PL (1) [id number] 11/04/21 13:26 PL Document 11/11/21 10:34 [id number] 11/11/21 10:45 JF Document 11/18/21 14:00 PL [id number] 11/18/21 14:04 PL (1) #1 Left Medial LE - Expiration Date => 08/03/26 - Product Lot Number => [id number] - Percent Used => 100 11/04/21 11/11/21 11/18/21 13:24 10:34 14:00 Wound Center Nurse 2 #1 Left Medial LE -Time 10:25 10:37 10:15 -Correct Patient Yes Yes Yes -Correct Side, Site, Position Yes Yes Yes -Correct Procedure Yes Yes Yes -Procedure Performed Yes Yes Yes -Type of Procedure Debridement Debridement Debridement -Clinical Debridement Subcutaneous Subcutaneous Subcutaneous -Tissue Removed Subcutaneous Subcutaneous Subcutaneous -Post Debridement (cm) - Length 1.0 1.0 0.2 -Post Debridement (cm) - Width 1.0 0.8 0.2 -Post Debridement (cm) - Depth 0.1 0.1 0.1 -Total Square (Post) (cm) 1.00 0.80 0.04 -Area of Debridement (cm) - Length 1.0 1.0 0.2 -Area of Debridement (cm) - Width 1.0 0.8 0.2 -Total Square (Area) (cm) 1.00 0.80 0.04 -Tunneling No No No -Undermining/Tunneling No No No -Circular Undermining No No No -Wound/Ulcer Outcome Not Healed Not Healed Not Healed -Ulcer Cleansing Rinsed/ Rinsed/ Rinsed/ Irrigated with Irrigated with Irrigated with Saline Saline Saline -Foul Odor after Cleansing No No No -Bioengineered Tissue Yes Yes Yes -Type of Bioengineered Tissue Epifix 18mm Epifix 18mm Epifix 18mm Disc Disc Disc -Expiration Date 08/03/26 08/31/26 08/31/26 -Product Lot Number [id number] -Percent Used 100 100 100 -Lot number of Saline Used -Bleeding Controlled with Pressure Pressure Pressure -Treatment Response Procedure Procedure Procedure Tolerated Well Tolerated Well Tolerated Well -Offloading No -Debridement - Subq, 1st 20sq cm No No No -Apply Skin Sub - 1st 25 sq cm - Legs 1 1 1 -Epifix 18mm Disc 3 3 3 Pain Scale: 0-10 Numeric Is Patient Pain Free? Yes Yes Yes - Nurse 3 - General Ulcer D/C NN Start: 11/02/21 13:17 Freq: Status: Active Protocol: Activity Type Activity Date Activity User E-Sign Co-Sign Detail Recorded Client Recorded Date Recorded By Document 11/02/21 13:17 DL [id number] 11/02/21 13:28 DL Document 11/02/21 13:29 DL [id number] 11/02/21 13:31 DL Document 11/09/21 11:53 DL [id number] 11/09/21 11:59 DL Document 11/11/21 11:01 BMF [id number] 11/11/21 11:02 BMF Document 11/16/21 14:02 BMF [id number] 11/16/21 14:03 BM Document 11/18/21 10:12 PL [id number] 11/19/21 07:13 PL Document 11/23/21 14:21 [facility] [id number] 11/23/21 14:22 [facility] Document 11/25/21 09:49 [place] [id number] 11/25/21 09:50 [place] 11/02/21 11/02/21 11/09/21 13:17 13:29 11:53 Vital Signs Temperature (97.8 F-99.1 F) 97.7 F L 98.7 F Temperature Source Temporal Temporal Pulse Rate (60-100) 69 63 Pulse Location Monitor Monitor Respiratory Rate (12-18) 18 20 H Respiratory rate source Observation Observation Oxygen Delivery Method Blood Pressure (90/60-120/80) 142/70 H 161/66 H Blood Pressure Mean (mm Hg) 94 97 Source Monitor Monitor Position Blood Pressure Location Comment Epifix intact Pain Scale: 0-10 Numeric Is Patient Pain Free? Yes Yes Yes Wound Care Nurse 3 #1 Left Medial LE -Ulcer Cleansing Soap and Water -Foul Odor after Cleansing No -Primary Dressing Applied -Other Dressing Epifix intact/ EpiFix superabsorber -Primary Dressing Covered/Secured with Dry Gauze & Roll Gauze, Secured with Tape -Other Covering -Optilok 6.5x10 Left -Multi-Layered Wrap Application Multi-Layer Unna Boot - Comp - Left ($) Left ($) Treatment Response Procedure Tolerated Well WC - Visit Discharge Discharge Condition Stable Stable Ambulatory Status Ambulatory Ambulatory Transportation Private Auto Private Auto Accompanied by Medication Reconcilliation completed & provided to patient/care provider Clinical Summary of Care Provided Notes: 11/11/21 11/16/21 11/18/21 11:01 14:02 10:12 Vital Signs Temperature (97.8 F-99.1 F) 96.8 F L Temperature Source Temporal Pulse Rate (60-100) 68 Pulse Location Monitor Respiratory Rate (12-18) 16 Respiratory rate source Observation Oxygen Delivery Method Room Air Blood Pressure (90/60-120/80) 127/54 H Blood Pressure Mean (mm Hg) 78 Source Monitor Position Sitting Blood Pressure Location Left Arm Comment Pain Scale: 0-10 Numeric Is Patient Pain Free? Yes Yes Yes Wound Care Nurse 3 #1 Left Medial LE -Ulcer Cleansing -Foul Odor after Cleansing -Primary Dressing Applied Optilok 6.5x10 -Other Dressing epifix EPIFIX LEFT INTACT -Primary Dressing Covered/Secured with -Other Covering xtrasorb super SUPERABSORBER, absorber; abd 3M PER [place] EDUCATION LIAISON -Optilok 6.5x10 1 Left -Multi-Layered Wrap Application Multi-Layer Multi-Layer Multi-Layer Comp - Left ($) Comp - Left ($) Comp - Left ($) Treatment Response Procedure Procedure Tolerated Well Tolerated Well WC - Visit Discharge Discharge Condition Stable Stable Ambulatory Status Ambulatory Ambulatory Transportation Private Auto Private Auto Accompanied by Medication Reconcilliation completed & provided to patient/care provider Clinical Summary of Care Provided Notes: 11/23/21 11/25/21 14:21 09:49 Vital Signs Temperature (97.8 F-99.1 F) Temperature Source Pulse Rate (60-100) Pulse Location Respiratory Rate (12-18) Respiratory rate source Oxygen Delivery Method Blood Pressure (90/60-120/80) Blood Pressure Mean (mm Hg) Source Position Blood Pressure Location Comment Pain Scale: 0-10 Numeric Is Patient Pain Free? Yes Yes Wound Care Nurse 3 #1 Left Medial LE -Ulcer Cleansing -Foul Odor after Cleansing -Primary Dressing Applied -Other Dressing EPIFIX LEFT ABD and gauze INTACT -Primary Dressing Covered/Secured with Other -Other Covering ABD, 3M PER [place] EDUCATION LIAISON -Optilok 6.5x10 Left -Multi-Layered Wrap Application Multi-Layer Comp - Left ($) Treatment Response Procedure Tolerated Well WC - Visit Discharge Discharge Condition Stable Stable Ambulatory Status Ambulatory Ambulatory Transportation Private Auto Private Auto Accompanied by Medication Reconcilliation completed & No provided to patient/care provider Clinical Summary of Care Provided Yes Notes: healed picture taken Assessment/Plan Assessment/Plan (1) Non-pressure chronic ulcer of left calf with fat layer exposed: CODE(S): L97.222 - Non-pressure chronic ulcer of left calf with fat layer exposed (2) Venous insufficiency (chronic) (peripheral): CODE(S): I87.2 - Venous insufficiency (chronic) (peripheral) (3) Bilateral edema of lower extremity: CODE(S): R60.0 - Localized edema PLAN: This is a 76-year-old male who presents to the wound care center for a medial left lower extremity wound secondary to chronic venous insufficiency. Patient seen and evaluated Left lower extremity medial ulceration site demonstrates healed but friable skin. No signs of infection. I discussed with him that he is to gently wash the area with soap and water and pat the area dry. He is to continue to dress the site with dry sterile dressings for the next 10 days as the skin is friable. He is to monitor the site for the potential for reulceration to continue to wear compression socks knee-high, 20 to 30 mmHg daily. He was given instructions to continue to elevate both lower extremities at times of rest. He voices understanding of this today. He and his are very pleased with his progress today. I discussed proper diet control and exercise to prevent onset of diabetes mellitus type 2, patient states that he will try his best. I discussed continued exercise as this will also aid in venous return, aid in weight loss, and help prevent onset of type 2 diabetes mellitus. I reviewed and discussed his case today. The following work up and care recommendations were made: Dressing: None Wash: Gently wash with soap and water, pat the area dry Tissue growth optimization: None Offload: Compression socks knee-high, 20 to 30 mmHg Vascular: Palpable pedal pulses DP and PT Edema: Compression socks knee-high, 20 to 30 mmHg, elevate lower extremities at times of rest, dorsiflex and plantarflex the foot to aid in venous return by the calf muscle Infection: No localized signs of infection Pain: No pain today Host factors: Chronic venous insufficiency and edema. HgbA1c 5.8% from 08/18/21 I answered all the patient's questions. To return to the wound healing center as needed or sooner if he experiences any wounds to his foot, ankle, or legs. Jr. Daisy Vargas.P.M. [facility] [phone] Note: [employer] speech recognition facility operations manager software was used to create portions of this document. Sound-alike and misspelled words, as well as other facility operations manager errors may be contained in the documentation.
== END 2021-11-25 14:13 | disposition home or self-care (01) ==
LOC: WC 09:30
PROVIDERS: PCP Family Medicine; Visit Provider Student in an Organized Health Care Education/Training Program
DX: I87.2 Venous insufficiency (chronic) (peripheral) (principal); L97.222 Non-pressure chronic ulcer of left calf with fat layer exposed; R60.0 Localized edema; Z79.899 Other long term (current) drug therapy
CPT/HCPCS: 15271; 29580; 29581; 99213; Q4186; G0463

== ENCOUNTER → 2023-05-03 | Outpatient (CLI) | payer MEDICARE, OTHER, SELFPAY ==
[2023-05-03 12:38] LABS: BNP,B-Type NATRIURETIC PEPTIDE 203.7 pg/mL (0-100)
== END | disposition home or self-care (01) ==
LOC: LAB 10:13
PROVIDERS: PCP Family Medicine; Referring Provider Internal Medicine Cardiovascular Disease; Visit Provider Internal Medicine Cardiovascular Disease
DX: R06.02 Shortness of breath (principal)
CPT/HCPCS: 36415; 83880

== ENCOUNTER → 2023-05-10 | Outpatient (CLI) | payer MEDICARE, OTHER, SELFPAY ==
[2023-05-10 08:32] LABS: Anion Gap 4 (5-15); BUN 27 mg/dL (7-18); BUN/Creat Ratio 18.2 RATIO (10-20); Calcium,Total 8.3 mg/dL (8.5-10.1); Chloride 106 mmol/L (98-107); Creatinine, Serum 1.48 mg/dL (0.70-1.30); EST Glomerular Filtration Rate 49 mL/min (>60); Est Glom Filt Rate - Afr Amer 59 mL/min (>60); Glucose 118 mg/dL (74-106); Potassium 4.1 mmol/L (3.5-5.1); Sodium Level 138 mmol/L (136-145)
== END | disposition home or self-care (01) ==
LOC: LAB 07:31
PROVIDERS: PCP Family Medicine; Referring Provider Nurse Practitioner Family; Visit Provider Nurse Practitioner Family
DX: I10 Essential (primary) hypertension (principal)
CPT/HCPCS: 36415; 80048

== ENCOUNTER → 2023-06-02 | Outpatient (CLI) | payer MEDICARE, OTHER, SELFPAY ==
[2023-06-02] MEDS: Methacholine Chloride 18 ml neb kit INHALATION (13:11)
--- NOTE | 2023-06-04 08:26 | BRONCHALL ---
Bronchoprovocation Challenge Bronchoprovocation Challenge Bronchoprovocation Challenge: INTRODUCTION: The patient is a 78-year-old male who presents for a bronchoprovocation challenge secondary to a diagnosis of cough. Respiratory therapy reported good patient effort and reproducible results. INTERPRETATION: Initial spirometry did not show any large airways obstructive ventilatory impairment with preserved airflows throughout. The patient was then given progressively increasing doses of methacholine in a standardized fashion. The patient did not experience a significant drop in FEV1 during testing that would indicate the presence of bronchial hyperresponsiveness. IMPRESSION: Negative methacholine inhalation challenge.
== END | disposition home or self-care (01) ==
LOC: PSN 12:51
PROVIDERS: PCP Family Medicine
DX: R05.3 Chronic cough (principal)
CPT/HCPCS: 94070; 95070

== ENCOUNTER 2024-11-06 13:12 | Outpatient (CLI) | payer MEDICARE, OTHER, SELFPAY ==
[2024-11-06 16:04] LABS: Pro- Brain NATRIURETIC PEPTIDE 756 pg/mL (<=1800)
== END 2024-11-06 23:59 | disposition home or self-care (01) ==
PROVIDERS: PCP Family Medicine; Referring Provider Internal Medicine Pulmonary Disease; Visit Provider Internal Medicine Pulmonary Disease
DX: I27.20 Pulmonary hypertension, unspecified (principal)
CPT/HCPCS: 36415; 83880